=== PATIENT | male | born 1955 | race Caucasian/White ===

== ENCOUNTER 2021-06-29 21:40 | Emergency (ER) | payer OTHER, SELFPAY ==
[2021-06-30 00:32] LABS: Protime INR 1.08
[2021-06-30 00:38] LABS: Hematocrit 41.3 % (39.6-49.0); Lymphocytes % 23.8 % (15.3-44.8); MPV 7.9 fL (7.6-11.3); RBC Red Blood Cell Count 4.87 M/uL (4.33-5.43)
[2021-06-30 00:55] LABS: Potassium 3.5 mmol/L (3.5-5.1)
[2021-06-30 00:58] LABS: Albumin 3.9 g/dL (3.4-5.0); Magnesium 2.1 mg/dL (1.8-2.4)
[2021-06-30 01:00] LABS: Bilirubin Direct 0.1 mg/dL (0-0.2)
[2021-06-30 01:00] LABS: Urine Blood Negative (Negative); Urine Glucose Trace (Negative); Urine Protein Negative (Negative); Urine Specific Gravity >=1.030 (1.005-1.030); Urine pH 5.5 (5.0-7.0)
[2021-06-30 01:02] LABS: Bilirubin Total 0.5 mg/dL (0.2-1.0)
[2021-06-30 01:03] LABS: Protein, Total 7.1 g/dL (6.4-8.2)
[2021-06-30 01:06] LABS: Troponin High Sensitivity 5.6 pg/mL (<58.9)
[2021-06-30 01:27] LABS: Barbiturates NEGATIVE (NEGATIVE); Benzodiazepines NEGATIVE (NEGATIVE); Cocaine NEGATIVE (NEGATIVE); METHAMPHETAM NEGATIVE (NEGATIVE); Methadone NEGATIVE (NEGATIVE); Opiates NEGATIVE (NEGATIVE); Phencyclidine NEGATIVE (NEGATIVE); THC Cannibis NEGATIVE (NEGATIVE)
[2021-06-30] MEDS ORDERED: HYDROCODONE/APAP 5/325 MG TAB ONE (02:00)
--- NOTE | 2021-06-30 02:31 | ER ---
Nurse's Notes [facility] Name: Jose J Sanchez Age: 65 yrs Sex: Male : 1955 Arrival Date: 06/29/2021 Time: 21:43 Bed 9 Private MD: Diagnosis: Pain in left shoulder Presentation: 06/29 22:04 Chief complaint: Patient states: Left shoulder pain - on and off 3 x 4 days. Stabbing ld1 pain. Denies injury. Coronavirus screen: At this time, the client does not indicate any symptoms associated with coronavirus-19. Ebola Screen: No symptoms or risks identified at this time. Initial Sepsis Screen: Does the patient meet any 2 criteria? No. Patient's initial sepsis screen is negative. Does the patient have a suspected source of infection? No. Patient's initial sepsis screen is negative. Risk Assessment: Do you want to hurt yourself or someone else? Patient reports no desire to harm self or others. Onset of symptoms was June 29, 2021. 22:04 Method Of Arrival: Ambulatory ld1 22:04 Acuity: DELICIA 3 ld1 Triage Assessment: 22:05 General: Appears in no apparent distress. comfortable, Behavior is calm, cooperative, ld1 appropriate for age. Pain: Complains of pain in left arm Pain radiates to right arm Pain currently is 8 out of 10 on a pain scale. EENT: No signs and/or symptoms were reported regarding the EENT system. Neuro: Level of Consciousness is awake, alert, obeys commands, Oriented to person, place, time, situation, Denies numbness headache. Cardiovascular: Capillary refill < 3 seconds Patient's skin is warm and dry. Respiratory: Reports shortness of breath on exertion. GI: Abdomen is flat, non-distended. Musculoskeletal: Reports pain in left arm. Historical: - Allergies: 22:05 No Known Allergies; ld1 - Home Meds: 22:05 atorvastatin oral [Active]; trazodone 50 mg Oral tab 1 tab once daily [Active]; ld1 - PSHx: 22:05 Back surgery; ld1 - Immunization history:: Adult Immunizations up to date, Client reports having NOT received the Covid vaccine. - Social history:: Smoking status: Patient denies any tobacco usage or history of. Patient/guardian denies using alcohol. Screenin:58 Abuse screen: Denies threats or abuse. Denies injuries from another. Nutritional kd3 screening: No deficits noted. Fall Risk IV access (20 points). 22:59 Tuberculosis screening: No symptoms or risk factors identified. kd3 Assessment: 23:07 Reassessment: Patient and/or family updated on plan of care and expected duration. Pain kd3 level reassessed. Patient is alert, oriented x 3, equal unlabored respirations, skin warm/dry/pink. pt complains of left shoulder pain that started 3 days ago. is currently an 8 out of 10, radiates to the left neck and through the upper back. denies chest pain, sob or and cardiac related history. General: Appears uncomfortable. Neuro: Level of Consciousness is awake, alert, obeys commands, Oriented to person, place, time, situation. Cardiovascular: Patient's skin is warm and dry. Respiratory: Airway is patent Trachea midline Respiratory effort is even, unlabored, Respiratory pattern is regular. 06/30 01:18 Reassessment: No changes from previously documented assessment. Patient and/or family kd3 updated on plan of care and expected duration. Pain level reassessed. Patient is alert, oriented x 3, equal unlabored respirations, skin warm/dry/pink. 03:07 Reassessment: No changes from previously documented assessment. Patient and/or family kd3 updated on plan of care and expected duration. Pain level reassessed. Patient is alert, oriented x 3, equal unlabored respirations, skin warm/dry/pink. Vital Signs: 06/29 22:04 BP 156 / 91; Pulse 77; Resp 18; Temp 98.1(O); Pulse Ox 100% on R/A; Weight 93.44 kg; ld1 Height 6 ft. 3 in. (190.50 cm); Pain 8/10; 22:58 BP 128 / 87; Pulse 92; Resp 17; Temp 98.6; Pulse Ox 99% on R/A; kd3 06/30 01:18 BP 151 / 94; Pulse 60; Resp 17; Pulse Ox 99% on R/A; kd3 03:07 BP 150 / 82; Pulse 72; Resp 17; Pulse Ox 100% on R/A; kd3 06/29 22:04 Body Mass Index 25.75 (93.44 kg, 190.50 cm) ld1 ED Course: 06/29 21:43 Patient arrived in ED. kz 22:05 Triage completed. ld1 22:05 Arm band placed on right wrist. ld1 22:58 Linnea Mccallum, RN is Primary Nurse. kd3 22:58 Patient has correct armband on for positive identification. Bed in low position. Call kd3 light in reach. 23:42 Fred Sauceda MD is Attending Physician. 7 06/30 00:14 Inserted saline lock: 20 gauge in right antecubital area, using aseptic technique. ds4 Blood collected. 00:28 XRAY Chest (1 view) In Process Unspecified. EDMS 00:28 Shoulder Left (2 View) XRAY In Process Unspecified. EDMS 02:30 Jm Walters MD is Referral Physician. 7 02:30 Joel Nino MD is Referral Physician. 7 03:07 No provider procedures requiring assistance completed. IV discontinued, intact, kd3 bleeding controlled, No redness/swelling at site. Pressure dressing applied. Administered Medications: 01:57 Drug: HYDROcodone-acetaminophen 5 mg-325 mg 1 tabs Route: PO; kd3 03:08 Follow up: Response: No adverse reaction; Pain is decreased kd3 Medication: 06/29 22:59 VIS not applicable for this client. kd3 Outcome: 06/30 02:31 Discharge ordered by . 7 03:07 Discharged to home ambulatory. kd3 03:07 Condition: stable 03:07 Discharge instructions given to patient, Instructed on discharge instructions, follow up and referral plans. medication usage, Demonstrated understanding of instructions, follow-up care, medications, Prescriptions given X 1. 03:08 Patient left the ED. kd3 Signatures: Dispatcher [employer] EDOK Jason Liz ds4 Fred Sauceda MD MD 7 Karen Urias RN RN ld1 Linnea Mccallum, RN RN kd3 Lashell Murphy
--- NOTE | 2021-06-30 02:31 | EDPHYS ---
Physician Documentation [facility] Name: Jose J Sanchez Age: 65 yrs Sex: Male : 1955 Arrival Date: 06/29/2021 Time: 21:43 Bed 9 Private MD: ED Physician Fred Sauceda HPI: 06/30 00:05 This 65 yrs old Male presents to ER via Ambulatory with complaints of Shoulder Pain - mh7 Left. 00:05 The patient or guardian complains of pain, that is acute. left shoulder. Context: The mh7 problem was sustained at an unknown site, resulted from an unknown reason, The patient experiences decreased range of motion, when attempts to raise arm, The patient reports no obvious deformity. Onset: The symptoms/episode began/occurred 4 day(s) ago. Modifying factors: the symptoms are alleviated by nothing. The symptoms are aggravated by movement, rotation of arm. Associated signs and symptoms: Pertinent negatives: abdominal pain, chest pain, diaphoresis, dyspnea, neck pain, shortness of breath, tingling. Severity of symptoms: At their worst the symptoms were moderate, 2 day(s) ago, in the emergency department the symptoms have improved, moderately. Treatment prior to arrival includes: over the counter medications, Tylenol. Historical: - Allergies: 06/29 22:05 No Known Allergies; ld1 - Home Meds: 22:05 atorvastatin oral [Active]; trazodone 50 mg Oral tab 1 tab once daily [Active]; ld1 - PSHx: 22:05 Back surgery; ld1 - Immunization history:: Adult Immunizations up to date, Client reports having NOT received the Covid vaccine. - Social history:: Smoking status: Patient denies any tobacco usage or history of. Patient/guardian denies using alcohol. ROS: 06/30 00:05 Constitutional: Negative for fever, chills, and weight loss, Eyes: Negative for injury, mh7 pain, redness, and discharge, ENT: Negative for injury, pain, and discharge, Neck: Negative for injury, pain, and swelling, Cardiovascular: Negative for chest pain, palpitations, and edema, Respiratory: Negative for shortness of breath, cough, wheezing, and pleuritic chest pain, Abdomen/GI: Negative for abdominal pain, nausea, vomiting, diarrhea, and constipation, Back: Negative for injury and pain, : Negative for injury, bleeding, discharge, and swelling, Skin: Negative for injury, rash, and discoloration, Neuro: Negative for headache, weakness, numbness, tingling, and seizure, Psych: Negative for depression, anxiety, suicide ideation, homicidal ideation, and hallucinations, Allergy/Immunology: Negative for hives, rash, and allergies, Endocrine: Negative for neck swelling, polydipsia, polyuria, polyphagia, and marked weight changes. Exam: 00:05 Constitutional: This is a well developed, well nourished patient who is awake, alert, mh7 and in no acute distress. Head/Face: Normocephalic, atraumatic. Eyes: Pupils equal round and reactive to light, extra-ocular motions intact. Lids and lashes normal. Conjunctiva and sclera are non-icteric and not injected. Cornea within normal limits. Periorbital areas with no swelling, redness, or edema. Neck: Trachea midline, no thyromegaly or masses palpated, and no cervical lymphadenopathy. Supple, full range of motion without nuchal rigidity, or vertebral point tenderness. No Meningismus. Chest/axilla: Normal chest wall appearance and motion. Nontender with no deformity. No lesions are appreciated. Cardiovascular: Regular rate and rhythm with a normal S1 and S2. No gallops, murmurs, or rubs. Normal PMI, no JVD. No pulse deficits. Respiratory: Lungs have equal breath sounds bilaterally, clear to auscultation and percussion. No rales, rhonchi or wheezes noted. No increased work of breathing, no retractions or nasal flaring. Abdomen/GI: Soft, non-tender, with normal bowel sounds. No distension or tympany. No guarding or rebound. No evidence of tenderness throughout. Back: No spinal tenderness. No costovertebral tenderness. Full range of motion. Skin: Warm, dry with normal turgor. Normal color with no rashes, no lesions, and no evidence of cellulitis. Neuro: Awake and alert, GCS 15, oriented to person, place, time, and situation. Cranial nerves II-XII grossly intact. Motor strength 5/5 in all extremities. Sensory grossly intact. Cerebellar exam normal. Normal gait. Psych: Awake, alert, with orientation to person, place and time. Behavior, mood, and affect are within normal limits. 00:05 Musculoskeletal/extremity: Extremities: noted in the posterior left shoulder: pain, tenderness, ROM: limited active range of motion due to pain, in the left shoulder, limited passive range of motion due to pain, in the left shoulder, Circulation is intact in all extremities. Sensation intact. Compartment Syndrome exam of affected extremity: is normal. no numbness, no tingling, no sensation deficit, no palor, no weak pulses, Joints: the left shoulder displays painful range of motion, Weight bearing: able to fully bear weight, without difficulty, Tendon exam: specific tendon testing normal through active and passive range of motion DVT Exam: no swelling, no tenderness, negative Homans' sign noted on exam, no appreciated bluish discoloration, no erythema, no increased warmth. Vital Signs: 06/29 22:04 BP 156 / 91; Pulse 77; Resp 18; Temp 98.1(O); Pulse Ox 100% on R/A; Weight 93.44 kg; ld1 Height 6 ft. 3 in. (190.50 cm); Pain 8/10; 22:58 BP 128 / 87; Pulse 92; Resp 17; Temp 98.6; Pulse Ox 99% on R/A; kd3 06/30 01:18 BP 151 / 94; Pulse 60; Resp 17; Pulse Ox 99% on R/A; kd3 03:07 BP 150 / 82; Pulse 72; Resp 17; Pulse Ox 100% on R/A; kd3 06/29 22:04 Body Mass Index 25.75 (93.44 kg, 190.50 cm) ld1 MDM: 02:28 Differential diagnosis: Anterior dislocation without fracture, Posterior dislocation mh7 without fracture, DJD, tendonitis. Data reviewed: vital signs, nurses notes, lab test result(s), cardiac enzymes, CBC, electrolytes, EKG, radiologic studies, plain films. Data interpreted: Pulse oximetry: on room air is 99 %. Interpretation: normal. Counseling: I had a detailed discussion with the patient and/or guardian regarding: the historical points, exam findings, and any diagnostic results supporting the discharge/admit diagnosis, the presence of at least one elevated blood pressure reading (>120/80) during this emergency department visit, lab results, radiology results, the need for outpatient follow up, a orthopedic surgeon, to return to the emergency department if symptoms worsen or persist or if there are any questions or concerns that arise at home. Response to treatment: the patient's symptoms have markedly improved after treatment. 02:31 [facility] 00:00 Order name: Basic Metabolic Panel; Complete Time: :50 [facility] 06/30 00:00 Order name: CBC with Diff; Complete Time: 01:05 [facility] 06/30 00:00 Order name: LFT's; Complete Time: : [facility] 06/30 00:00 Order name: Magnesium; Complete Time: : [facility] 06/30 00:00 Order name: NT PRO-BNP; Complete Time: : [facility] 06/30 00:00 Order name: PT-INR; Complete Time: : [facility] 06/30 00:00 Order name: Troponin HS; Complete Time: : [facility] 06/30 00:00 Order name: XRAY Chest (1 view) [facility] 06/30 00:00 Order name: EKG; Complete Time: 00: [facility] 06/30 00:00 Order name: Cardiac monitoring; Complete Time: : [facility] 06/30 00:00 Order name: UDS; Complete Time: :50 [facility] 06/30 00:00 Order name: Shoulder Left (2 View) XRAY [facility] 06/30 01:00 Order name: Urine Dipstick-Ancillary; Complete Time: 01:05 [facility] 06/30 00:00 Order name: EKG - Nurse/Tech; Complete Time: 00:43 [facility] 06/30 00:00 Order name: IV Saline Lock; Complete Time: 00:14 [facility] 06/30 00:00 Order name: Labs collected and sent; Complete Time: 00:14 [facility] 06/30 00:00 Order name: O2 Per Protocol; Complete Time: 00:14 [facility] 06/30 00:00 Order name: O2 Sat Monitoring; Complete Time: 00:14 [facility] 06/30 00:00 Order name: Urine Dipstick-Ancillary (obtain specimen); Complete Time: 01: [facility] Administered Medications: 01:57 Drug: HYDROcodone-acetaminophen 5 mg-325 mg 1 tabs Route: PO; kd3 03:08 Follow up: Response: No adverse reaction; Pain is decreased kd3 Disposition Summary: 05/17/22 02:31 Discharge Ordered [facility] Problem: chronic [facility] Symptoms: have improved [facility] Condition: Stable [facility] Diagnosis - Pain in left shoulder [facility] - With: Private Physician - When: 1 - 2 days - Reason: Worsening of condition, Recheck today's complaints, Continuance of care, Re-evaluation by your physician [facility]up: [facility] - With: Jm Walters MD - When: 1 - 2 days - Reason: Worsening of condition, Recheck today's complaints [facility]up: [facility] - With: Joel Nino MD - When: 1 - 2 days - Reason: Worsening of condition, Recheck today's complaints Discharge Instructions: - Discharge Summary Sheet [facility] - Musculoskeletal Pain [facility] - Shoulder Pain, [id number] [facility] Forms: - Medication Reconciliation Form [facility] - Thank You Letter [facility] - Antibiotic Education [facility] - Prescription Opioid Use [facility] Prescriptions: - lidocaine 5 % Topical adhesive patch,medicated - apply 1 patch by TOPICAL route once daily As needed; 7 patch; Refills: 0, 7 Product Selection Permitted Signatures: Dispatcher [employer] Fred Guallpa MD MD [facility] Karen Urias, RN RN ld1 Linnea Mccallum RN RN kd3
[2021-06-30 03:18] VITALS: TEMP 98.6
[2021-06-30 03:21] VITALS: BP 150/82; O2SAT 100
--- NOTE | 2021-06-30 09:32 | EKG ---
Test Date: 2021-06-30 Test Time: 00:25:45 Electric Meter Repairer: BLAS MEASUREMENT RESULTS: Intervals: Rate: 60 AZ: 174 QRSD: 80 QT: 424 QTc: 424 Dalton: P: 32 AZ: 174 QRS: 30 T: 38 INTERPRETIVE STATEMENTS: Normal sinus rhythm Nonspecific T wave abnormality Abnormal ECG No previous ECG available for comparison Electronically Signed On 06-30-21 09:31:57 CDT by Fabian Linares
--- NOTE | 2021-06-30 12:52 | RAD REPORT ---
EXAM DESCRIPTION: RAD - Chest Single View - 06/30/2021 12:26 am CLINICAL HISTORY: 65-year-old male with pain. TECHNIQUE: Single view, AP portable chest was obtained. Two views of the LEFT shoulder were obtained in AP internal/external rotation. COMPARISON: None. FINDINGS: Chest: Unremarkable cardiac and mediastinal silhouette. Heart size is normal. Lung volumes grossly clear without focal opacity, pneumothorax or pleural effusions. The visualized bones are within normal limits. LEFT shoulder: No fracture or dislocation. The joint spaces are within normal limits. IMPRESSION: No acute radiographic abnormalities. Electronically signed by: Janett Bernal MD 06/30/2021 12:35 AM CDT Due to temporary technical issues with the PACS/Fluency reporting system, reports are being signed by the in house radiologists without review as a courtesy to insure prompt reporting. The interpreting radiologist is fully responsible for the content of the report.
--- NOTE | 2021-06-30 13:23 | RAD REPORT ---
EXAM DESCRIPTION: RAD - Shoulder Left 2 View - 06/30/2021 12:26 am CLINICAL HISTORY: 65-year-old male with pain. TECHNIQUE: Single view, AP portable chest was obtained. Two views of the LEFT shoulder were obtained in AP internal/external rotation. COMPARISON: None. FINDINGS: Chest: Unremarkable cardiac and mediastinal silhouette. Heart size is normal. Lung volumes grossly clear without focal opacity, pneumothorax or pleural effusions. The visualized bones are within normal limits. LEFT shoulder: No fracture or dislocation. The joint spaces are within normal limits. IMPRESSION: No acute radiographic abnormalities. Electronically signed by: Janett Bernal MD 06/30/2021 12:35 AM CDT Due to temporary technical issues with the PACS/Fluency reporting system, reports are being signed by the in house radiologists without review as a courtesy to insure prompt reporting. The interpreting radiologist is fully responsible for the content of the report.
== END 2021-06-30 03:08 | disposition home or self-care (01) ==
LOC: ER 21:40
DX: M25.512 Pain in left shoulder (principal)
CPT/HCPCS: 36415; 71045; 80048; 80076; 80307; 81003; 83735; 83880; 84484; 85025; 85610; 93005; 99284

== ENCOUNTER 2021-07-04 16:47 | Emergency (ER) | payer OTHER ==
--- OUTSIDE RECORDS SUMMARY | 2021-07-04 16:49 | XMS REPORT | Continuity of Care Document ---
:1955 Author Organization [facility] t Address [address] [place] [address] Care Team Providers Name Role Phone Lusins, O Attending Clinician Unavailable Physician, Primary or Family Attending Clinician Unavailabl e Lusins, O Admitting Clinician Unavailable Physician, Primary or Family Admitting Clinician Unavailabl e Payers Payer Name Policy Type Policy Number Effective Date Expiration Date S vita [facility] [id number] 2021 (MEDICARE 00:00:00 REPLACEMENT HMO) Problems This patient has no known problems. Allergies, Adverse Reactions, Alerts Allergy Allergy Status Severity Reaction(s) Onset Inactive Treating Comm ents Source Name Type Date Date Clinician No Known DA Active U [facility] Allergie 06-24 [facility] 00:00: [address] No Known DA Active U [facility] Allergie 06-24 [facility] 00:00: [address] Medications This patient has no known medications. Procedures This patient has no known procedures. Encounters Start End Encounter Admission Attending Care Care Encounter Source Date/Time Date/Time Type Type Clinicians Facility Department ID 2020-06-24 Inpatient UR Lusins, MYNOR TRUJILLO [id number] [facility] 00:19:00 Sebastien [id number] [facility] 2020-06-23 Inpatient UR Physician, MYNOR TRUJILLO [id number] [facility] 22:23:00 Lulu [id number] [facility] 2021-03-03 2021-03-03 Outpatient DMG [id number] [facility] 08:00:00 08:00:00 [id number] [facility] Results Test Description Test Time Test Comments Results Result Comments Source GLYCOSYLATED HEMOGLOBIN (HA1C) 2020-06-24 09:24:00 Test Item Value Reference Range Interpretation Comme nts GLYCOSYLATED HEMOGLOBIN (HA1C) (test code = GLYHGB) 5.5 % TOT HB 4. 5-6.2 N LIPID PROFILE (CORONARY RISK)2020-06-24 08:32:00 Test Item Value Reference Range Interpretation Comments TRIGLYCERIDES (test 112 MG/DL 30-200 N code = TRIG) CHOLESTEROL (test code 160 MG/DL 122-200 N = CHOL) CHOLESTEROL/HDL RATIO 3.6 1.5-4.5 N 1. I nitial (test code = CHOLHDL) classi fication based on total choles terol: <200 mg/dl Desirable chol esterol 200-239 m g/dl Borderline hi gh risk cholesterol >240 mg/dl H igh risk cholestero l2. Initial classif ication based on LDL cholesterol: <130 mg/dl Desirable LDL cholesterol 130-159 mg/dl Borderline high risk LDL >159 mg/dl High risk LDL cholesterol3. HDL < 35 mg/dl repres ent increased CHD r isk; HDL > 60 mg/dl represent decre ased CHD risk.4. C hol/HDL > 5.0 represent increased CHD risk in men; Chol/H DL > 4.5 represent increased CHD risk in women. HDL CHOLESTEROL (test 44 MG/DL 40-60 N code = HDL) LIPOPROTEIN LDL (test 94 MG/DL 62-130 N code = LDL) LIPOPROTEIN VLDL (test 22 MG/DL 3-60 N code = VLDL)
--- NOTE | 2021-07-04 18:19 | ER ---
Nurse's Notes [facility] Name: Jose J Sanchez Age: 65 yrs Sex: Male : 1955 Arrival Date: 07/04/2021 Time: 16:50 Bed Waiting Private MD: Diagnosis: Other sprain of left shoulder joint Presentation: 07/04 17:03 Chief complaint: Patient states: left shoulder hurting real bad, across back and across iw shoulder blades, sometimes it goes to my hip , has been hurting for a week, denies injury. Coronavirus screen: At this time, the client does not indicate any symptoms associated with coronavirus-19. Ebola Screen: Patient negative for fever greater than or equal to 101.5 degrees Fahrenheit, and additional compatible Ebola Virus Disease symptoms Patient denies exposure to infectious person. Patient denies travel to an Ebola-affected area in the 21 days before illness onset. No symptoms or risks identified at this time. Initial Sepsis Screen: Does the patient meet any 2 criteria? No. Patient's initial sepsis screen is negative. Does the patient have a suspected source of infection? No. Patient's initial sepsis screen is negative. Risk Assessment: Do you want to hurt yourself or someone else? Patient reports no desire to harm self or others. Onset of symptoms was June 27, 2021. 17:03 Method Of Arrival: Ambulatory iw 17:03 Acuity: DELICIA 4 iw Historical: - Allergies: 17:05 No Known Allergies; iw - Home Meds: 17:05 atorvastatin Oral [Active]; trazodone 50 mg Oral tab 1 tab once daily [Active]; iw - PMHx: 17:05 Hypercholesterolemia; iw - PSHx: 17:05 back surgery; five knee surgery; iw - Social history:: Patient/guardian denies using alcohol, street drugs, The patient lives with family. - Family history:: not pertinent. Screenin:29 Abuse screen: Denies threats or abuse. Denies injuries from another. Nutritional ss screening: No deficits noted. Tuberculosis screening: Never had TB. Fall Risk None identified. Assessment: 18:29 General: Appears in no apparent distress. comfortable, Behavior is calm, cooperative. ss Pain: Complains of pain in L shoulder Pain currently is 9 out of 10 on a pain scale. Neuro: Sheldon Agitation-Sedation Scale (RASS): 0 - Alert and Calm Level of Consciousness is awake, alert, obeys commands, Oriented to person, place, time, situation. Cardiovascular: Pulses are palpable in right radial artery and left radial artery. Respiratory: Airway is patent Respiratory effort is even, unlabored, Respiratory pattern is regular, symmetrical. EENT: Nares are clear Oral mucosa is moist. Derm: Skin is intact, is healthy with good turgor, Skin is dry, Skin is pink, warm \T\ dry. normal. Musculoskeletal: Circulation, motion, and sensation intact. Range of motion: intact in all extremities, Swelling absent. Vital Signs: 17:03 BP 164 / 91; Pulse 82; Resp 16; Temp 98.4; Pulse Ox 100% on R/A; Weight 93.44 kg; iw Height 6 ft. 3 in. (190.50 cm); Pain 9/10; 17:03 Body Mass Index 25.75 (93.44 kg, 190.50 cm) iw ED Course: 16:50 Patient arrived in ED. ds1 17:05 Triage completed. iw 17:06 Arm band placed on. iw 17:57 Erica Zarate MD is Attending Physician. ma2 18:28 Analisa Meza RN is Primary Nurse. ss 18:29 Patient has correct armband on for positive identification. Bed in low position. ss 18:29 No provider procedures requiring assistance completed. Patient did not have IV access ss during this emergency room visit. Administered Medications: No medications were administered Medication: 18:29 VIS not applicable for this client. ss Outcome: 18:19 Discharge ordered by . ma2 18:29 Discharged to home ambulatory. ss 18:29 Condition: good 18:29 Discharge instructions given to patient, Instructed on discharge instructions, follow up and referral plans. medication usage, Demonstrated understanding of instructions, follow-up care, medications, Prescriptions given X 4. 18:30 Patient left the ED. ss Signatures: Ellie Georges ds1 Lola Rao RN RN Analisa Meza RN RN Erica Zarate MD MD ma2
--- NOTE | 2021-07-04 18:19 | EDPHYS ---
Physician Documentation [facility] Name: Jose J Sanchez Age: 65 yrs Sex: Male : 1955 Arrival Date: 07/04/2021 Time: 16:50 Bed Waiting Private MD: ED Physician Erica Zarate HPI: 07/04 18:10 This 65 yrs old Male presents to ER via Ambulatory with complaints of Shoulder Pain. ma2 18:10 Associated signs and symptoms: Pertinent negatives: chest pain, diaphoresis, dyspnea, ma2 neck pain, shortness of breath, tingling. 65-year-old male with left shoulder pain that is been constant for the last 2 weeks worse when he moves the shoulder, pain is reproduced reproducible only when he abducts and left his left shoulder, left shoulder is also tender as well, denies chest pain neck pain or any anginal equivalent, patient was seen in our ER last week had normal x-ray was advised to follow-up with PCP was given pain medication on. However patient did not had a chance to follow-up with PCP or get MRI yet. No new symptoms at this time.. Historical: - Allergies: 17:05 No Known Allergies; iw - Home Meds: 17:05 atorvastatin Oral [Active]; trazodone 50 mg Oral tab 1 tab once daily [Active]; iw - PMHx: 17:05 Hypercholesterolemia; iw - PSHx: 17:05 back surgery; five knee surgery; iw - Social history:: Patient/guardian denies using alcohol, street drugs, The patient lives with family. - Family history:: not pertinent. ROS: 18:10 Constitutional: Negative for fever, chills, and weight loss. ma2 18:10 All other systems are negative. Exam: 18:10 Constitutional: This is a well developed, well nourished patient who is awake, alert, ma2 and in no acute distress. Head/Face: Normocephalic, atraumatic. Eyes: Pupils equal round and reactive to light, extra-ocular motions intact. Lids and lashes normal. Conjunctiva and sclera are non-icteric and not injected. Cornea within normal limits. Periorbital areas with no swelling, redness, or edema. ENT: Nares patent. No nasal discharge, no septal abnormalities noted. Tympanic membranes are normal and external auditory canals are clear. Oropharynx with no redness, swelling, or masses, exudates, or evidence of obstruction, uvula midline. Mucous membranes moist. Neck: Trachea midline, no thyromegaly or masses palpated, and no cervical lymphadenopathy. Supple, full range of motion without nuchal rigidity, or vertebral point tenderness. No Meningismus. Chest/axilla: Normal chest wall appearance and motion. Nontender with no deformity. No lesions are appreciated. Cardiovascular: Regular rate and rhythm with a normal S1 and S2. No gallops, murmurs, or rubs. Normal PMI, no JVD. No pulse deficits. Respiratory: Lungs have equal breath sounds bilaterally, clear to auscultation and percussion. No rales, rhonchi or wheezes noted. No increased work of breathing, no retractions or nasal flaring. Abdomen/GI: Soft, non-tender, with normal bowel sounds. No distension or tympany. No guarding or rebound. No evidence of tenderness throughout. Back: No spinal tenderness. No costovertebral tenderness. Full range of motion. Skin: Warm, dry with normal turgor. Normal color with no rashes, no lesions, and no evidence of cellulitis. MS/ Extremity: Left shoulder tenderness over posterior joint pain reproducible on exam limited range of motion due to pain, pulses equal, no cyanosis. Neurovascular intact. Full, normal range of motion. Neuro: Awake and alert, GCS 15, oriented to person, place, time, and situation. Cranial nerves II-XII grossly intact. Motor strength 5/5 in all extremities. Sensory grossly intact. Cerebellar exam normal. Normal gait. Vital Signs: 17:03 BP 164 / 91; Pulse 82; Resp 16; Temp 98.4; Pulse Ox 100% on R/A; Weight 93.44 kg; iw Height 6 ft. 3 in. (190.50 cm); Pain 9/10; 17:03 Body Mass Index 25.75 (93.44 kg, 190.50 cm) iw MDM: 18:17 Differential diagnosis: DJD, tendonitis. Data reviewed: vital signs, nurses notes. ma2 Counseling: I had a detailed discussion with the patient and/or guardian regarding: the historical points, exam findings, and any diagnostic results supporting the discharge/admit diagnosis, the presence of at least one elevated blood pressure reading (>120/80) during this emergency department visit, the need for outpatient follow up. Response to treatment: the patient's symptoms have markedly improved after treatment. 18:19 Patient medically screened. ma2 Administered Medications: No medications were administered Disposition Summary: 07/04/21 18:19 Discharge Ordered Location: Home ma2 Condition: Stable ma2 Diagnosis - Other sprain of left shoulder joint ma2 Followup: ma2 - With: Private Physician - When: Tomorrow - Reason: If symptoms return, Continuance of care Discharge Instructions: - Discharge Summary Sheet ma2 - Shoulder Pain ma2 Forms: - Medication Reconciliation Form ma2 - Thank You Letter ma2 - Antibiotic Education ma2 - Prescription Opioid Use ma2 Prescriptions: - TORADOL 10 MG - take 1 tablet by ORAL route 3 times per day; 21 tablet; Refills: 0, Product ma2 Selection Permitted - Diclofenac Sodium 75 mg Oral Tablet Sustained Release - take 1 tablet by ORAL route 2 times per day; 30 tablet; Refills: 0, Product ma2 Selection Permitted - Medrol (Ilan) 4 mg Oral Tablets, Dose Pack - take 1 tablet by ORAL route as directed - follow package instructions; 1 ma2 packet; Refills: 0, Product Selection Permitted - Cyclobenzaprine 5 mg Oral Tablet - take 1 tablet by ORAL route 3 times per day As needed; 15 tablet; Refills: 0, ma2 Product Selection Permitted Signatures: Dispatcher [employer] Lola Sharp, Erica Templeton RN, MD MD ma2
[2021-07-04 18:42] VITALS: BP 164/91; TEMP 98.4; O2SAT 100
== END 2021-07-04 18:30 | disposition home or self-care (01) ==
LOC: ER 16:47
DX: S43.492A Other sprain of left shoulder joint, initial encounter (principal); E78.00 Pure hypercholesterolemia, unspecified
CPT/HCPCS: 99282

== ENCOUNTER 2021-07-10 21:43 | Emergency (ER) | payer OTHER ==
--- OUTSIDE RECORDS SUMMARY | 2021-07-10 21:46 | XMS REPORT | Continuity of Care Document ---
:1955 Author Organization [facility] t Address [address] [place] [address] Care Team Providers Name Role Phone Lusins, O Attending Clinician Unavailable Physician, Primary or Family Attending Clinician Unavailabl e Lusins, O Admitting Clinician Unavailable Physician, Primary or Family Admitting Clinician Unavailabl e Payers Payer Name Policy Type Policy Number Effective Date Expiration Date S vita [facility] [id number] 2021 (MEDICARE 00:00:00 REPLACEMENT HMO) Problems This patient has no known problems. Allergies, Adverse Reactions, Alerts Allergy Allergy Status Severity Reaction(s) Onset Inactive Treating Comm ents Source Name Type Date Date Clinician No Known DA Active U [facility] Allergie 06-24 [facility] 00:00: [address] No Known DA Active U [facility] Allergie 06-24 [facility] 00:00: [address] Medications This patient has no known medications. Procedures This patient has no known procedures. Encounters Start End Encounter Admission Attending Care Care Encounter Source Date/Time Date/Time Type Type Clinicians Facility Department ID 2020-06-24 Inpatient UR Lusins, MYNOR TRUJILLO [id number] [facility] 00:19:00 Sebastien [id number] [facility] 2020-06-23 Inpatient UR Physician, MYNOR TRUJILLO [id number] [facility] 22:23:00 Lulu [id number] [facility] 2021-03-03 2021-03-03 Outpatient [facility] [id number] [facility] 08:00:00 08:00:00 [id number] [facility] Results Test Description Test [...]
--- NOTE | 2021-07-11 02:04 | ER ---
Nurse's Notes [facility] Name: Jose J Sanchez Age: 65 yrs Sex: Male : 1955 Arrival Date: 07/10/2021 Time: 21:46 Bed 14 Private MD: Diagnosis: Presentation: 07/10 22:07 Chief complaint: Patient states: pt was here previously for hurt shoulder on the left kd3 side. pt states that the pain has not gotten any better since he was last here. he states that it is not radiating down in his ribs on the left side, making it painful to breathe. it also radiates to the right chest. Coronavirus screen: Vaccine status: Patient reports being unvaccinated. Ebola Screen: No symptoms or risks identified at this time. Initial Sepsis Screen: Does the patient meet any 2 criteria? No. Patient's initial sepsis screen is negative. Does the patient have a suspected source of infection? No. Patient's initial sepsis screen is negative. Risk Assessment: Do you want to hurt yourself or someone else? Patient reports no desire to harm self or others. Onset of symptoms was July 10, 2021. 22:07 Method Of Arrival: Ambulatory kd3 22:07 Acuity: DELICIA 3 kd3 Triage Assessment: 22:12 General: Appears uncomfortable, Behavior is calm, cooperative. Pain: Complains of pain kd3 in left shoulder, left rib cage, left chest. Neuro: Level of Consciousness is awake, alert, obeys commands, Oriented to person, place, time, situation. Respiratory: Reports shortness of breath at rest Onset: The symptoms/episode began/occurred at an unknown time. the patient has mild shortness of breath. Respiratory: Airway is patent Trachea midline Respiratory effort is even, unlabored. Historical: - Home Meds: 22:12 atorvastatin Oral [Active]; trazodone 50 mg Oral tab 1 tab once daily [Active]; kd3 - PMHx: 22:12 Hypercholesterolemia; kd3 - PSHx: 22:12 back surgery; five knee surgery; kd3 - Immunization history:: Adult Immunizations up to date. - Social history:: Smoking status: Patient denies any tobacco usage or history of. Assessment: 22:14 Cardiovascular:. Respiratory: Airway is patent Trachea midline Respiratory effort is kd3 even, unlabored, Breath sounds are clear bilaterally. 07/11 02:04 Reassessment: Patient left without being seen by provider. ke1 Vital Signs: 07/10 22:07 BP 136 / 96; Pulse 81; Resp 18; Temp 98.3; Pulse Ox 96% ; Weight 93.44 kg; Height 6 ft. kd3 3 in. (190.50 cm); Pain 9/10; 22:07 Body Mass Index 25.75 (93.44 kg, 190.50 cm) kd3 ED Course: 21:46 Patient arrived in ED. bp1 22:12 Triage completed. kd3 22:12 Arm band placed on right wrist. kd3 22:56 Fred Sauceda MD is Attending Physician. [facility] 07/11 00:41 Brit Sheehan, RN is Primary Nurse. zara Administered Medications: No medications were administered Outcome: 02:03 Eloped from patient exam room. ke1 02:05 Patient left the ED. ke1 Signatures: Brit Sheehan, RN RN bb Tracie Moore [facility] Fred Sauceda MD MD [facility] Linnea Mccallum RN RN 3 Aubree Curry RN RN ke1
--- NOTE | 2021-07-11 02:04 | EDPHYS ---
Physician Documentation [facility] Name: Jose J Sanchez Age: 65 yrs Sex: Male : 1955 Arrival Date: 07/10/2021 Time: 21:46 Bed 14 Private MD: ED Physician Fred Sauceda HPI: 07/11 00:15 This 65 yrs old Male presents to ER via Ambulatory with complaints of Shortness Of mh7 Breath, Flank Pain, Shoulder Pain. 00:15 The patient or guardian complains of pain, that is acute. left shoulder. Context: The mh7 problem was sustained at an unknown site, resulted from an unknown reason, The patient experiences decreased range of motion, when rotates arm, The patient reports no obvious deformity. Onset: The symptoms/episode began/occurred 2 week(s) ago. Modifying factors: the symptoms are alleviated by remaining still, The symptoms are aggravated by lifting weight, movement, rotation of arm. Associated signs and symptoms: Pertinent negatives: abdominal pain, diaphoresis, neck pain, tingling. Severity of symptoms: At their worst the symptoms were moderate, 7 day(s) ago, in the emergency department the symptoms have improved, moderately. Treatment prior to arrival includes: no previous treatment. The patient has been recently seen at the [facility], last week. States his left shoulder pain has not improved much since it began 2 weeks ago. Pain with movement goes to chest area at times, and upper back. Denies any fever, cough, nausea, vomiting, abdominal pain.. Historical: - Home Meds: 07/10 22:12 atorvastatin Oral [Active]; trazodone 50 mg Oral tab 1 tab once daily [Active]; kd3 - PMHx: 22:12 Hypercholesterolemia; kd3 - PSHx: 22:12 back surgery; five knee surgery; kd3 - Immunization history:: Adult Immunizations up to date. - Social history:: Smoking status: Patient denies any tobacco usage or history of. ROS: 07/11 00:15 Constitutional: Negative for fever, chills, and weight loss, Eyes: Negative for injury, mh7 pain, redness, and discharge, ENT: Negative for injury, pain, and discharge, Neck: Negative for injury, pain, and swelling, Abdomen/GI: Negative for abdominal pain, nausea, vomiting, diarrhea, and constipation, : Negative for injury, bleeding, discharge, and swelling, Skin: Negative for injury, rash, and discoloration, Neuro: Negative for headache, weakness, numbness, tingling, and seizure, Psych: Negative for depression, anxiety, suicide ideation, homicidal ideation, and hallucinations, Allergy/Immunology: Negative for hives, rash, and allergies, Endocrine: Negative for neck swelling, polydipsia, polyuria, polyphagia, and marked weight changes, Hematologic/Lymphatic: Negative for swollen nodes, abnormal bleeding, and unusual bruising. Exam: 00:15 Constitutional: This is a well developed, well nourished patient who is awake, alert, mh7 and in no acute distress. Head/Face: Normocephalic, atraumatic. Eyes: Pupils equal round and reactive to light, extra-ocular motions intact. Lids and lashes normal. Conjunctiva and sclera are non-icteric and not injected. Cornea within normal limits. Periorbital areas with no swelling, redness, or edema. Neck: Trachea midline, no thyromegaly or masses palpated, and no cervical lymphadenopathy. Supple, full range of motion without nuchal rigidity, or vertebral point tenderness. No Meningismus. 00:15 Cardiovascular: Regular rate and rhythm with a normal S1 and S2. No gallops, murmurs, or rubs. Normal PMI, no JVD. No pulse deficits. Respiratory: Lungs have equal breath sounds bilaterally, clear to auscultation and percussion. No rales, rhonchi or wheezes noted. No increased work of breathing, no retractions or nasal flaring. Abdomen/GI: Soft, non-tender, with normal bowel sounds. No distension or tympany. No guarding or rebound. No evidence of tenderness throughout. 00:15 Skin: Warm, dry with normal turgor. Normal color with no rashes, no lesions, and no evidence of cellulitis. 00:15 Neuro: Awake and alert, GCS 15, oriented to person, place, time, and situation. Cranial nerves II-XII grossly intact. Motor strength 5/5 in all extremities. Sensory grossly intact. Cerebellar exam normal. Normal gait. Psych: Awake, alert, with orientation to person, place and time. Behavior, mood, and affect are within normal limits. 00:15 Chest/axilla: Inspection: normal, Palpation: tenderness, that is moderate, of the left lateral posterior chest, that totally reproduces the patient's complaints, Axilla: are normal, Lymph nodes: lymphadenopathy is not appreciated. 00:15 Back: pain, that is moderate, of the left trapezius, normal spinal alignment noted, CVA tenderness, is absent, vertebral tenderness, is not appreciated, muscle spasm, is appreciated in the left trapezius. 00:15 Musculoskeletal/extremity: Extremities: noted in the left shoulder: pain, tenderness, ROM: limited active range of motion due to pain, in the left shoulder, limited passive range of motion due to pain, in the left shoulder, Circulation is intact in all extremities. Sensation intact. Compartment Syndrome exam of affected extremity: is normal. no numbness, no tingling, no sensation deficit, no palor, no weak pulses, Joints: the left shoulder displays painful range of motion, tenderness, Weight bearing: able to fully bear weight, without difficulty, Tendon exam: specific tendon testing normal through active and passive range of motion Vital Signs: 07/10 22:07 BP 136 / 96; Pulse 81; Resp 18; Temp 98.3; Pulse Ox 96% ; Weight 93.44 kg; Height 6 ft. kd3 3 in. (190.50 cm); Pain 9/10; 22:07 Body Mass Index 25.75 (93.44 kg, 190.50 cm) kd3 MDM: 07/11 01:21 Order name: EKG; Complete Time: 01:22 [facility] 07/11 01:21 Order name: Cardiac monitoring [facility] 07/11 01:21 Order name: EKG - Nurse/Tech [facility] 07/11 01:21 Order name: IV Saline Lock [facility] 07/11 01:21 Order name: Labs collected and sent [facility] 07/11 01:21 Order name: O2 Per Protocol [facility] 07/11 01:21 Order name: O2 Sat Monitoring [facility] Administered Medications: No medications were administered Disposition Summary: 07/11/21 02:04 Eloped Disposition: before being seen by provider ke1 Reason: (see nurse's notes) ke1 Signatures: Dispatcher [employer] Fred Guallpa MD MD [facility] Linnea Mccallum RN RN kd3 Aubree Curry RN RN ke1 Corrections: (The following items were deleted from the chart) 07/11 02:04 01:22 Chest Single View+RAD.[email or web address] ordered. EDMS EDMS
[2021-07-11 02:09] VITALS: BP 136/96; TEMP 98.3; O2SAT 96
== END 2021-07-11 02:05 | disposition left against medical advice (07) ==
LOC: ER 21:43
DX: Z53.21 Procedure and treatment not carried out due to patient leaving prior to being seen by health care provider (principal)
CPT/HCPCS: 99281

== ENCOUNTER 2021-08-07 23:30 | Emergency (ER) | payer OTHER ==
--- OUTSIDE RECORDS SUMMARY | 2021-08-07 23:33 | XMS REPORT | Continuity of Care Document ---
:1955 Author Organization [facility] t Address [address] [place] [address] Care Team Providers Name Role Phone PCP, DOES NOT HAVE A Primary Care Physician Unavailable Gurmeet Wong Attending Clinician Unavailable Physician, Primary or Family Attending Clinician UnavailMarla Bey Attending Clinician Unavailable Jose Alberto THOMPSON, S Attending Clinician Marla Collado APN Attending Clinician Gurmeet Wong Admitting Clinician Unavailable Physician, Primary or Family Admitting Clinician UnavailMarla Bey Admitting Clinician Unavailable Payers Payer Name Policy Type Policy Number Effective Date Expiration Date Leticia gorman [facility] [id number] 2021 00:00:00 [employer] [id number] 2021 (MEDICARE 00:00:00 REPLACEMENT HMO) Problems Condition Condition Condition Status Onset Resolution Last Treating Co mments Source Name Details Category Date Date Treatment Clinician Date No known No known Disease Unive rs active active ity of problems problems [facility] Allergies, Adverse Reactions, Alerts Allergy Allergy Status Severity Reaction(s) Onset Inactive Treating Comm ents Source Name Type Date Date Clinician No Known DA Active U [facility] 06-24 [facility] s 00:00: Shanon 00 [facility] No Known DA Active U [facility] Allergie 06-24 Corpus s 00:00: Shanon [facility] NO KNOWN Drug Active Univers ALLERGIE Class ity of S [facility] Social History Social Habit Start Date Stop Date Quantity Comments Source Exposure to 2021-07-09 2021-07-19 Not sure [facility] SARS-CoV-2 (event) 00:00:00 22:03:00 Medica l Branch Sex Ass[birth year] [facility] 00:00:00 00:00:00 Medical Branch Smoking Status Start Date Stop Date Source Unknown if ever smoked [facility] Medications Ordered Filled Start Stop Current Ordering Indication Dosage Frequency Signature Comments Components Source Medication Medication Date Date Medication? Clinician (SIG) Name Name ketorolac 15mg 15 mg, Unive rs (TORADOL) 07-20 Slow IV ity of injection 02:15: 01:25 Push, [place] 15 mg 00 :00 ONCE, 1 Medical dose, On Branch 07/19/21 at 2115, DANNA NaCl 0.9% 1000mL at 999 Uni vers (NS) bolus 07-20 mL/hr, ity of infusion 02:15: 03:04 1,000 mL, Diony as 1,000 mL 00 :00 IV Medical Infusion, Branch ONCE, 1 dose, On 07/19/21 at 2115, STAT traMADoL 50 Yes [id number] 50mg Take 1 Univ ers mg tablet 07-19 tablet by ity o f 00:00: mouth [place] 00 every 6 Medical (six) Branch hours as needed for Pain (scale 4-6). Indication s: acute pain Vital Signs Vital Name Observation Time Observation Value Comments Source Systolic blood 2021-07-20 03:06:00 150 mm[Hg] Univer sity of pressure [facility] Diastolic blood 2021-07-20 03:06:00 93 mm[Hg] [facility] Heart rate 2021-07-20 03:06:00 69 /min [facility] Respiratory rate 2021-07-20 03:06:00 18 /min [facility] Oxygen saturation in 2021-07-20 03:06:00 99 /min [facility] Arterial blood by [facility] Pulse oximetry Branch Body temperature 2021-07-20 00:43:00 37.28 Lashay [facility] Body height 2021-07-20 00:43:00 190.5 cm [facility] Body weight 2021-07-20 00:43:00 93.441 kg [facility] BMI 2021-07-20 00:43:00 25.75 kg/m2 [facility] Procedures Procedure Date / Time Performed Performing Clinician Ruthie gonzalez CT ABDOMEN PELVIS WO 2021-07-20 01:35:00 Kerwin Collado [facility] COMP. METABOLIC PANEL 2021-07-20 01:18:00 Kerwin Collado [facility] ([id number]) [facility] CBC WITH DIFF 2021-07-20 01:18:00 Kerwin Collado [facility] URINALYSIS 2021-07-20 01:18:00 Kerwin Collado [facility] NOTICE OF PRIVACY 2021-07-20 00:32:07 Doctor Unassigned, No [facility] PRACTICES Name [facility] Encounters Start End Encounter Admission Attending Care Care Encounter Source Date/Time Date/Time Type Type Clinicians Facility Department ID 2020-06-24 Inpatient [facility] [id number] [facility] 00:19:00 Sebastien [id number] [facility] 2020-06-23 Inpatient UR Physician, [facility] [id number] [facility] 22:23:00 No [id number] [facility] 2021-07-19 2021-07-19 Emergency X DIAMOND DEMATTHEW ERT [id number] Univers 19:48:00 22:08:00 KERWIN solano [facility] 2021-07-19 2021-07-19 Emergency Edd Abrams S [facility] [id number] Univers 19:48:00 22:08:00 Kerwin Collado [place] [id number] [facility] [id number] [facility] [id number] [facility] 084 Branch 2021-03-03 2021-03-03 Outpatient DMG DMG [id number] [facility] 08:00:00 08:00:00 [id number] Medica l Group Results Test Description Test Time Test Comments Results Result Comments Source COMP. METABOLIC PANEL (26854) 2021-07-20 01:42:54 Test Item Value Reference Range Interpretation Comme nts NA (test code = 0583651239) 138 mmol/L 135-145 K (test code = 0384406999) 4.1 mmol/L 3.5-5.0 CL (test code = 2910941409) 104 mmol/L 98-108 CO2 TOTAL (test code = 4309799548) 22 mmol/L 23-31 L AGAP (test code = 8879783446) 2-16 BUN (test code = 4061895717) 16 mg/dL 7-23 GLUCOSE (test code = 0422942975) 115 mg/dL 70-110 H CREATININE (test code = 0.84 mg/dL 0.60-1.25 1278920417) TOTAL BILI (test code = 0.6 mg/dL 0.1-1.8 9788728969) CALCIUM (test code = 6996558124) 8.9 mg/dL 8.6-10.6 T PROTEIN (test code = 2057018343) 6.8 g/dL 6.3-8.2 ALBUMIN (test code = 1192586507) 4.4 g/dL 3.5-5.0 ALK PHOS (test code = 3190374193) 74 U/L 34-122 ALTv (test code = 1742-6) 32 U/L 5-50 AST(SGOT) (test code = 6695962971) 32 U/L 13-40 eGFR (test code = 8454301547) mL/min/1.73m2 ANGEL (test code = ANGEL) Association of Glomerular Filtration Rate (GFR) and Staging of Kidney Disease* + +-------- + ------+| GFR (mL/min/1.73 m2) ?| With Kidney Damage ?| ?Without Kidney Damage+ +-- + +| ?>90 ?| ?Stage one ?| ? Normal ?+ +------- + -------+| ?60-89 ?| ?Stage two ?| ? Decreased GFR ? + +-------- + ------+| ?30-59 ?| ?Stage three ?| ? Stage three ? + +-------- + ------+| ?15-29 ?| ?Stage four ? | ? Stage four ?+ +------- + -------+| ?<15 (or dialysis) ? ?| ?Stage five ? | ? Stage five ?+ +------- + -------+ *Each stage assumes the associated GFR level has been in effect for at least three months. ?Stages 1 to 5, with or without kidney disease, indicate chronic kidney disease. Notes: Determination of stages one and two (with eGFR >59mL/min/1.73 m2) requires estimation of kidney damage for at least three months as defined by structural or functional abnormalities of the kidney, manifested by either:Pathological abnormalities or Markers of kidney damage (including abnormalities in the composition of the blood or urine or abnormalities in imaging tests). Lab Interpretation (test code = Abnormal 88224-7) [facility] WITH [id number] 01:33:12 Test Item Value Reference Range Interpretation Comments WBC (test code = See_Comment [Automated 7510-2) message] The sy stem which generated this result transmitted reference range : 4.20 - 10.70 10*3/?L. The reference range was not used to interpret this result as normal/abnormal . RBC (test code = See_Comment [Automated 249-8) message] The sy stem which generated this result transmitted reference range : 4.26 - 5.52 10*6/?L. The reference range was not used to interpret this result as normal/abnormal . HGB (test code = 13.7 g/dL 12.2-16.4 718-7) HCT (test code = 38.3 % 38.4-49.3 L 4544-3) MCV (test code = 84.2 fL 81.7-95.6 787-2) MCH (test code = 30.1 pg 26.1-32.7 785-6) MCHC (test code = 35.8 g/dL 31.2-35.0 H 786-4) RDW-SD (test code = 35.6 fL 38.5-51.6 L 19756-7) RDW-CV (test code = 11.7 % 12.1-15.4 L 788-0) PLT (test code = See_Comment [Automated 777-3) message] The sy stem which generated this result transmitted reference range : 150 - 328 10*3/ ?L. The reference r leandro was not used to interpret this result as normal/abnormal . MPV (test code = 9.2 fL 9.8-13.0 L 95651-5) NRBC/100 WBC (test See_Comment [Automat ed code = 3361595253) message] The system which generated this result transmitted reference range : 0.0 - 10.0 /100 WBCs. The refer ence range was not u sed to interpret th is result as normal/abnormal . NRBC x10^3 (test code <0.01 See_Comment [Auto mated = 3690804955) message] The s ystem which generated this result transmitted reference range : 10*3/?L. The reference range was not used to interpret this result as normal/abnormal . GRAN MAT (NEUT) % 65.8 % (test code = 770-8) IMM GRAN % (test code 0.30 % = 1227154585) LYMPH % (test code = 22.4 % 736-9) MONO % (test code = 7.1 % 5905-5) EOS % (test code = 4.0 % 713-8) BASO % (test code = 0.4 % 706-2) GRAN MAT x10^3(ANC) 5.91 10*3/uL 1.99-6.95 (test code = 7980190734) IMM GRAN x10^3 (test 0.03 10*3/uL 0.00-0.06 code = 8693271894) LYMPH x10^3 (test code 2.02 10*3/uL 1.09-3.23 = 731-0) MONO x10^3 (test code 0.64 10*3/uL 0.36-1.02 = 742-7) EOS x10^3 (test code = 0.36 10*3/uL 0.06-0.53 711-2) BASO x10^3 (test code 0.04 10*3/uL 0.01-0.09 = 704-7) Lab Interpretation Abnormal (test code = 84570-2) [facility]2020-06-24 09:24:00 Test Item Value Reference Range Interpretation Comments GLYCOSYLATED HEMOGLOBIN (HA1C) 5.5 % TOT HB 4.5-6.2 N (test code = GLYHGB) LIPID PROFILE (CORONARY RISK)2020-06-24 08:32:00 Test Item [...] (test 22 MG/DL 3-60 N code = VLDL)"
[2021-08-08] MEDS ORDERED: HYDROCODONE/APAP 5/325 MG TAB ONE (02:30)
--- NOTE | 2021-08-08 02:33 | ER ---
Nurse's Notes [facility] Name: Jose J Sanchez Age: 65 yrs Sex: Male : 1955 Arrival Date: 08/07/2021 Time: 23:32 Bed 10 Private MD: Diagnosis: Contusion, Left Shoulder Presentation: 08/08 00:11 Chief complaint: Patient states: Left shoulder pain after falling on concrete today at lp1 1530, limited ROM to left shoulder; Denies any other injuries. Coronavirus screen: At this time, the client does not indicate any symptoms associated with coronavirus-19. Ebola Screen: No symptoms or risks identified at this time. Initial Sepsis Screen: Does the patient meet any 2 criteria? No. Patient's initial sepsis screen is negative. Does the patient have a suspected source of infection? No. Patient's initial sepsis screen is negative. Risk Assessment: Do you want to hurt yourself or someone else? Patient reports no desire to harm self or others. Onset of symptoms was August 08, 2021. 00:11 Method Of Arrival: Ambulatory lp1 00:11 Acuity: DELICIA 4 lp1 Triage Assessment: 00:30 Injury Description: fell from standing position onto concrete. bb Historical: - Allergies: 00:12 No Known Allergies; lp1 - Home Meds: 00:12 atorvastatin Oral [Active]; trazodone 50 mg Oral tab 1 tab once daily [Active]; lp1 - PMHx: 00:12 Hypercholesterolemia; lp1 - PSHx: 00:12 back surgery; five knee surgery; facial surgery; lp1 - Immunization history:: Adult Immunizations up to date, Client reports having NOT received the Covid vaccine. - Social history:: Smoking status: Patient denies any tobacco usage or history of. Screenin:29 Abuse screen: Denies threats or abuse. Nutritional screening: No deficits noted. bb Tuberculosis screening: No symptoms or risk factors identified. Fall Risk None identified. Assessment: 00:29 General: Appears in no apparent distress. uncomfortable, Behavior is calm, cooperative. bb Pain: Complains of pain in left shoulder. Neuro: Level of Consciousness is awake, alert, obeys commands, Oriented to person, place, time, situation. Cardiovascular: Capillary refill < 3 seconds Patient's skin is warm and dry. Respiratory: Respiratory effort is even, unlabored, Respiratory pattern is regular. GI: No signs and/or symptoms were reported involving the gastrointestinal system. Derm: Skin is pink, warm \T\ dry. Musculoskeletal: Circulation, motion, and sensation intact. Reports pain in left shoulder. 02:06 Reassessment: pt resting quietly, eyes closed, resp unlabored awaiting Dr Sauceda bb evaluation. 02:49 Reassessment: Patient is alert, oriented x 3, equal unlabored respirations, skin bb warm/dry/pink. sling to left arm in place pt verbalized understanding of and agrees to plan of care discharge instructions given pt ambulated with steady gait to exit. Vital Signs: 00:11 BP 137 / 85; Pulse 83; Resp 18; Temp 97.6(TE); Pulse Ox 100% on R/A; Weight 93.44 kg lp1 (R); Height 6 ft. 3 in. (190.50 cm); Pain 10/10; 02:35 BP 140 / 80; Pulse 86; Resp 16 S; Pulse Ox 99% on R/A; bb 00:11 Body Mass Index 25.75 (93.44 kg, 190.50 cm) lp1 ED Course: 08/07 23:32 Patient arrived in ED. bp1 08/08 00:11 Arm band placed on right wrist. lp1 00:12 Triage completed. lp1 00:19 Fred Sauceda MD is Attending Physician. 7 00:22 Brit Sheehan, ROLA is Primary Nurse. bb 00:29 Patient has correct armband on for positive identification. Bed in low position. Call bb light in reach. Side rails up X 1. Warm blanket given. Pillow given. 00:33 Shoulder Left (2 View) XRAY In Process Unspecified. EDMS 02:32 Gonzalez Chapin MD is Referral Physician. 7 02:50 No provider procedures requiring assistance completed. Patient did not have IV access bb during this emergency room visit. Administered Medications: 02:33 Drug: HYDROcodone-acetaminophen 5 mg-325 mg 1 tabs Route: PO; jb4 02:50 Follow up: Response: No adverse reaction bb Medication: 00:13 VIS not applicable for this client. lp1 Outcome: 02:32 Discharge ordered by . 7 02:51 Discharged to home ambulatory, with family. bb 02:51 Condition: stable 02:51 Discharge instructions given to patient, Instructed on discharge instructions, follow up and referral plans. no driving heavy equipment, medication usage, Demonstrated understanding of instructions, follow-up care, medications, Prescriptions given X 1. 02:51 Patient left the ED. zara Signatures: Dispatcher [employer] EDMS Brit Sheehan RN RN bb Meredith Rome RN RN lp1 Slim Bhakta RN RN jb4 Tracie Moore Maurice, MD MD mh7 Corrections: (The following items were deleted from the chart) 00:13 00:11 Chief complaint: Patient states: Left shoulder pain after falling on concrete lp1 today at 1530, limited ROM to left shoulder lp1
--- NOTE | 2021-08-08 02:33 | EDPHYS ---
Physician Documentation [facility] Name: Jose J Sanchez Age: 65 yrs Sex: Male : 1955 Arrival Date: 08/07/2021 Time: 23:32 Bed 10 Private MD: ED Physician Fred Sauceda HPI: 08/08 02:27 This 65 yrs old Male presents to ER via Ambulatory with complaints of Shoulder Injury. mh7 02:27 The patient or guardian complains of an injury. left shoulder. Context: The problem was mh7 sustained on a street or driveway, resulted from a fall, while walking, The patient experiences decreased range of motion, when rotates arm, The patient reports no obvious deformity. Onset: The symptoms/episode began/occurred yesterday, at 15:00. Modifying factors: the symptoms are alleviated by nothing. The symptoms are aggravated by movement, rotation of arm. Associated signs and symptoms: Pertinent negatives: abdominal pain, chest pain, diaphoresis, dyspnea, neck pain, shortness of breath, tingling. Severity of symptoms: At their worst the symptoms were moderate, just prior to arrival, earlier today, in the emergency department the symptoms are unchanged. Treatment prior to arrival includes: no previous treatment. Historical: - Allergies: 00:12 No Known Allergies; lp1 - Home Meds: 00:12 atorvastatin Oral [Active]; trazodone 50 mg Oral tab 1 tab once daily [Active]; lp1 - PMHx: 00:12 Hypercholesterolemia; lp1 - PSHx: 00:12 back surgery; five knee surgery; facial surgery; lp1 - Immunization history:: Adult Immunizations up to date, Client reports having NOT received the Covid vaccine. - Social history:: Smoking status: Patient denies any tobacco usage or history of. ROS: 02:27 Constitutional: Negative for fever, chills, and weight loss, Eyes: Negative for injury, mh7 pain, redness, and discharge, ENT: Negative for injury, pain, and discharge, Neck: Negative for injury, pain, and swelling, Cardiovascular: Negative for chest pain, palpitations, and edema, Respiratory: Negative for shortness of breath, cough, wheezing, and pleuritic chest pain, Abdomen/GI: Negative for abdominal pain, nausea, vomiting, diarrhea, and constipation, Back: Negative for injury and pain, : Negative for injury, bleeding, discharge, and swelling, Skin: Negative for injury, rash, and discoloration, Neuro: Negative for headache, weakness, numbness, tingling, and seizure, Psych: Negative for depression, anxiety, suicide ideation, homicidal ideation, and hallucinations, Allergy/Immunology: Negative for hives, rash, and allergies, Endocrine: Negative for neck swelling, polydipsia, polyuria, polyphagia, and marked weight changes, Hematologic/Lymphatic: Negative for swollen nodes, abnormal bleeding, and unusual bruising. Exam: 02:27 Head/Face: Normocephalic, atraumatic. Eyes: Pupils equal round and reactive to light, mh7 extra-ocular motions intact. Lids and lashes normal. Conjunctiva and sclera are non-icteric and not injected. Cornea within normal limits. Periorbital areas with no swelling, redness, or edema. Neck: Trachea midline, no thyromegaly or masses palpated, and no cervical lymphadenopathy. Supple, full range of motion without nuchal rigidity, or vertebral point tenderness. No Meningismus. Chest/axilla: Normal chest wall appearance and motion. Nontender with no deformity. No lesions are appreciated. Cardiovascular: Regular rate and rhythm with a normal S1 and S2. No gallops, murmurs, or rubs. Normal PMI, no JVD. No pulse deficits. Respiratory: Lungs have equal breath sounds bilaterally, clear to auscultation and percussion. No rales, rhonchi or wheezes noted. No increased work of breathing, no retractions or nasal flaring. Abdomen/GI: Soft, non-tender, with normal bowel sounds. No distension or tympany. No guarding or rebound. No evidence of tenderness throughout. Back: No spinal tenderness. No costovertebral tenderness. Full range of motion. Skin: Warm, dry with normal turgor. Normal color with no rashes, no lesions, and no evidence of cellulitis. 02:27 Neuro: Awake and alert, GCS 15, oriented to person, place, time, and situation. Cranial nerves II-XII grossly intact. Motor strength 5/5 in all extremities. Sensory grossly intact. Cerebellar exam normal. Normal gait. Psych: Awake, alert, with orientation to person, place and time. Behavior, mood, and affect are within normal limits. 02:27 Constitutional: The patient appears in no acute distress, alert, awake, uncomfortable. 02:27 Musculoskeletal/extremity: Extremities: noted in the left shoulder: contusion, decreased ROM, pain, tenderness, ROM: limited active range of motion due to pain, in the left shoulder, limited passive range of motion due to pain, in the left shoulder, Circulation is intact in all extremities. Sensation intact. Compartment Syndrome exam of affected extremity: is normal. no numbness, no tingling, no sensation deficit, no palor, no weak pulses, Joints: the left shoulder displays limited range of motion, painful range of motion, tenderness, Weight bearing: able to fully bear weight, without difficulty, Tendon exam: specific tendon testing normal through active and passive range of motion Vital Signs: 00:11 BP 137 / 85; Pulse 83; Resp 18; Temp 97.6(TE); Pulse Ox 100% on R/A; Weight 93.44 kg lp1 (R); Height 6 ft. 3 in. (190.50 cm); Pain 10/10; 02:35 BP 140 / 80; Pulse 86; Resp 16 S; Pulse Ox 99% on R/A; bb 00:11 Body Mass Index 25.75 (93.44 kg, 190.50 cm) lp1 MDM: 02:31 Differential diagnosis: Anterior dislocation with fracture, Anterior dislocation mh7 without fracture, Posterior dislocation with fracture, Posterior dislocation without fracture, humeral head fracture, glenoid fracture, DJD, tendonitis. Data reviewed: vital signs, nurses notes, radiologic studies, plain films. Data interpreted: Pulse oximetry: on room air is 100 %. Interpretation: normal. Counseling: I had a detailed discussion with the patient and/or guardian regarding: the historical points, exam findings, and any diagnostic results supporting the discharge/admit diagnosis, radiology results, the need for outpatient follow up, a orthopedic surgeon, to return to the emergency department if symptoms worsen or persist or if there are any questions or concerns that arise at home. 02:32 Patient medically screened. 7 08/08 00:11 Order name: Shoulder Left (2 View) XRAY lp1 08/08 02:19 Order name: Sling; Complete Time: 02:33 7 Administered Medications: 02:33 Drug: HYDROcodone-acetaminophen 5 mg-325 mg 1 tabs Route: PO; jb4 02:50 Follow up: Response: No adverse reaction bb Disposition Summary: 08/08/21 02:32 Discharge Ordered Location: Home [facility] Problem: new [facility] Symptoms: have improved [facility] Condition: Stable [facility] Diagnosis - Contusion, Left Shoulder [facility] Followup: [facility] - With: Private Physician - When: 1 - 2 days - Reason: Worsening of condition, Recheck today's complaints, Continuance of care, Re-evaluation by your physician Followup: [facility] - With: Gonzalez Chapin MD - When: 2 - 3 days - Reason: Worsening of condition, Recheck today's complaints Discharge Instructions: - Discharge Summary Sheet [facility] - Shoulder Pain, [id number] [facility] - Contusion, Zqau-hv-Rome [facility] - How to Use a Sling, [id number] [facility] Forms: - Medication Reconciliation Form [facility] - Thank You Letter [facility] - Antibiotic Education [facility] - Prescription Opioid Use [facility] Prescriptions: - Tylenol-Codeine #3 300 mg-30 mg Oral - take 2 tablet by ORAL route every 6-8 hours As needed; 15 tablet; Refills: 0, 7 Product Selection Permitted Signatures: Dispatcher [employer] EDMeredith Coughlin RN RN lp1 Slim Bhakta RN RN jb4 Fred Sauceda MD MD 7 Brit Sheehan RN bb
[2021-08-08 03:13] VITALS: TEMP 97.6
[2021-08-08 03:15] VITALS: BP 140/80; O2SAT 99
--- NOTE | 2021-08-10 14:19 | RAD REPORT ---
EXAM DESCRIPTION: RAD - Shoulder Left 2 View - 08/08/2021 12:31 am CLINICAL HISTORY: 65 years, Male, PAIN COMPARISON: 06/30/2021 FINDINGS: 2 X-ray views of the left shoulder (internal rotation and external rotation views) were pe rformed. There is no evidence for fracture or dislocation. There are minimal spur formation/degenerative wong e is identified within the greater tuberosity. No significant gross articular or soft tissue abnormal ity is identified. There are no gross intraosseous lesions. The AC joint demonstrate minimal degene rative changes. There is no evidence for separation. IMPRESSION: Minimal degenerative changes. Electronically signed by: Sebastien Sánchez MD 08/08/2021 12:54 AM CDT Due to temporary technical issues with the PACS/Fluency reporting system, reports are being signed by the in house radiologist without review as a courtesy to ensure prompt reporting. The interpreting r adiologist is fully responsible for the content of the report.
== END 2021-08-08 02:51 | disposition home or self-care (01) ==
LOC: ER 23:30
DX: S40.012A Contusion of left shoulder, initial encounter (principal); E78.00 Pure hypercholesterolemia, unspecified
CPT/HCPCS: 99283

== ENCOUNTER 2021-10-21 15:54 | Emergency (ER) | payer OTHER ==
--- OUTSIDE RECORDS SUMMARY | 2021-10-21 16:02 | XMS REPORT | Continuity of Care Document ---
:1955 Author Organization [facility] t Address [address] [place] [address] Care Team Providers Name Role Phone PCP, PATIENT DOES NOT HAVE A Primary Care Physician UnavailSebastien Finn Attending Clinician Unavailable KERWIN FIELDS Attending Clinician Unavailable Edd Abrams MD Attending Clinician Kerwin Fields APN Attending Clinician Sebastien Wong Admitting Clinician Unavailable KERWIN FIELDS Admitting Clinician Unavailable Payers Payer Name Policy Type Policy Number Effective Date Expiration Date Leticia [facility] [id number] 2021 00:00:00 [employer] [id number] 2021 (MEDICARE 00:00:00 REPLACEMENT HMO) Problems Condition Condition Condition Status Onset Resolution Last Treating Co mments Source Name Details Category Date Date Treatment Clinician Date No known No known Disease Unive rs active active ity of problems problems [facility] Allergies, Adverse Reactions, Alerts Allergy Allergy Status Severity Reaction(s) Onset Inactive Treating Comm ents Source Name Type Date Date Clinician No Known DA Active [facility] 06[facility]24 [facility] 00:00: [facility] No Known DA Active U [facility] Allergie 06-24 Corp[facility] s 00:00: [facility] NO KNOWN Drug Active Univers ALLERGIE Class ity of S [facility] Social History Social Habit Start Date Stop Date Quantity Comments Source Exposure to 2021-07-09 2021-07-19 Not sure [facility] SARS-CoV-2 (event) 00:00:00 22:03:00 Medica l Branch Sex Ass[birth year] [facility] 00:00:00 00:00:00 Medical Branch Smoking Status Start Date Stop Date Source Unknown if ever smoked [facility] Medications Ordered Filled Start Stop Current Ordering [...] tablet by ity o f 00:00: mouth [place] 00 every 6 Medical (six) Branch hours as needed for Pain (scale 4-6). Indication s: acute pain Vital Signs Vital Name Observation Time Observation Value Comments Source Systolic blood 2021-07-20 03:06:00 150 mm[Hg] Univer sity of pressure [facility] Diastolic blood 2021-07-20 03:06:00 93 mm[Hg] [facility] Heart rate 2021-07-20 03:06:00 69 /min [facility] Respiratory rate 2021-07-20 03:06:00 18 /min [facility] Oxygen saturation in 2021-07-20 03:06:00 99 /min [facility] Arterial blood by [facility] Pulse oximetry Branch Body temperature 2021-07-20 00:43:00 37.28 Lashay [facility] Body height 2021-07-20 00:43:00 190.5 cm [facility] Body weight 2021-07-20 00:43:00 93.441 kg [facility] BMI 2021-07-20 00:43:00 25.75 kg/m2 [facility] Procedures Procedure Date / Time Performed Performing Clinician Ruthie gonzalez CT ABDOMEN PELVIS WO 2021-07-20 01:35:00 Kerwin Fields [facility] COMP. METABOLIC PANEL 2021-07-20 01:18:00 Kerwin Fields [facility] ([id number]) [facility] CBC WITH DIFF 2021-07-20 01:18:00 Kerwin Fields [facility] URINALYSIS 2021-07-20 01:18:00 Kerwin Fields [facility] NOTICE OF PRIVACY 2021-07-20 00:32:07 Doctor Unassigned, No [facility] PRACTICES Name [facility] Encounters Start End Encounter Admission Attending Care Care Encounter Source Date/Time Date/Time Type Type Clinicians Facility Department ID 2020-06-24 In[facility] [id number] [facility] 01:23:38 Sebastien Guerrero [facility] 2021-07-19 2021-07-19 Emergency X DIAMOND MAMATTHEW ERT [id number] Univers 19:48:00 22:08:00 KERWIN solano [facility] 2021-07-19 2021-07-19 Emergency Edd Abrams S [facility] [id number] Univers 19:48:00 22:08:00 Kerwin Fields RICHARDS [id number] [facility] [id number] [facility] [id number] [facility] 084 Branch 2021-03-03 2021-03-03 Outpatient DMG DMG [id number] [facility] 08:00:00 08:00:00 [id number] [facility] Results Test Description Test Time Test Comments Results Result Comments Source COMP. METABOLIC PANEL (57332) 2021-07-20 01:42:54 Test Item Value Reference Range Interpretation Comme nts NA (test code = 7725195173) 138 mmol/L 135-145 K (test code = 5291516940) 4.1 mmol/L 3.5-5.0 CL (test code = 3589810874) 104 mmol/L 98-108 CO2 TOTAL (test code = 5358637392) 22 mmol/L 23-31 L AGAP (test code = 6345819859) 2-16 BUN (test code = 7660192411) 16 mg/dL 7-23 GLUCOSE (test code = 8037852453) 115 mg/dL 70-110 H CREATININE (test code = 0.84 mg/dL 0.60-1.25 7914052062) TOTAL BILI (test code = 0.6 mg/dL 0.1-1.6 7268288630) CALCIUM (test code = 0449921497) 8.9 mg/dL 8.6-10.6 T PROTEIN (test code = 9421427113) 6.8 g/dL 6.3-8.2 ALBUMIN (test code = 2693366258) 4.4 g/dL 3.5-5.0 ALK PHOS (test code = 3053946499) 74 U/L 34-122 ALTv (test code = 1742-6) 32 U/L 5-50 AST(SGOT) (test code = 0975836264) 32 U/L 13-40 eGFR (test code = 5440693297) mL/min/1.73m2 ANGEL (test code = ANGEL) Association [...] tests). Lab Interpretation (test code = Abnormal 24976-0) [facility] WITH [id number] 01:33:12 Test Item Value Reference Range Interpretation Comments WBC (test code = See_Comment [Automated 9290-2) message] The sy stem which generated this result transmitted reference range : 4.20 - 10.70 10*3/?L. The reference range was not used to interpret this result as normal/abnormal . RBC (test code = See_Comment [Automated 669-8) message] The sy stem which generated this [...] (test code = 35.6 fL 38.5-51.6 L 08936-0) RDW-CV (test code = 11.7 % 12.1-15.4 L 788-0) PLT (test code = See_Comment [Automated 777-3) message] The sy stem which generated this result transmitted reference range : 150 - 328 10*3/ ?L. The reference r leandro was not used to interpret this result as normal/abnormal . MPV (test code = 9.2 fL 9.8-13.0 L 03496-8) NRBC/100 WBC (test See_Comment [Automat ed code = 0802920661) message] The system which generated this result transmitted reference range : 0.0 - 10.0 /100 WBCs. The refer ence range was not u sed to interpret th is result as normal/abnormal . NRBC x10^3 (test code <0.01 See_Comment [Auto mated = 5285669821) message] The s ystem which generated this result transmitted reference range : 10*3/?L. The reference range was not used to interpret this result as normal/abnormal . GRAN MAT (NEUT) % 65.8 % (test code = 770-8) IMM GRAN % (test code 0.30 % = 3361017695) LYMPH % (test code = 22.4 % 736-9) MONO % (test code = 7.1 % 5905-5) EOS % (test code = 4.0 % 713-8) BASO % (test code = 0.4 % 706-2) GRAN MAT x10^3(ANC) 5.91 10*3/uL 1.99-6.95 (test code = 6158234833) IMM GRAN x10^3 (test 0.03 10*3/uL 0.00-0.06 code = 2676925805) LYMPH x10^3 (test code 2.02 10*3/uL 1.09-3.23 = 731-0) MONO x10^3 (test code 0.64 10*3/uL 0.36-1.02 = 742-7) EOS x10^3 (test code = 0.36 10*3/uL 0.06-0.53 711-2) BASO x10^3 (test code 0.04 10*3/uL 0.01-0.09 = 704-7) Lab Interpretation Abnormal (test code = 20402-5) [facility]2020-06-24 09:24:00 Test Item Value Reference Range Interpretation Comments GLYCOSYLATED HEMOGLOBIN (HA1C) 5.5 % TOT HB 4.5-6.2 N (test code = GLYHGB) LIPID PROFILE (CORONARY RISK)2020-06-24 08:32:00 Test Item Value Reference Range Interpretation Comments TRIGLYCERIDES (test 112 MG/DL 30-200 N code = TRIG) CHOLESTEROL (test code 160 MG/DL 122-200 N = CHOL) CHOLESTEROL/HDL RATIO 3.6 1.5-4.5 N 1. Ini tial (test code = CHOLHDL) classi fication based on total choles terol: <200 mg/dl Neetu rable cholesterol 200 -239 mg/dl Borderlin e high risk cholestero l >240 mg/dl High risk cholesterol2. I nitial classification based on LDL choleste rol: <130 mg/dl Neetu rable LDL cholesterol 130-159 mg/dl Borderline high risk LDL >159 mg/dl High risk LDL choles terol3. HDL < 35 mg/dl represent incre ased CHD risk; HDL > 60 mg/dl represent decreased CHD r isk.4. Chol/HDL > 5.0 represent incre ased CHD risk in men ; Chol/HDL > 4.5 represent incre ased CHD risk in wom en. HDL CHOLESTEROL (test 44 MG/DL 40-60 N code = HDL) LIPOPROTEIN LDL (test 94 MG/DL 62-130 N code = LDL) LIPOPROTEIN VLDL (test 22 MG/DL 3-60 N code = VLDL)"
--- NOTE | 2021-10-21 17:53 | RAD REPORT ---
EXAM DESCRIPTION: CT - CTHCSPWOC - 10/21/2021 5:23 pm CLINICAL HISTORY: Trauma, head and neck injury. fall COMPARISON: No comparisons TECHNIQUE: Axial 5 mm thick images of the head were obtained. Axial 2 mm thick images of the cervical spine were obtained with sagittal and coronal reconstruction images generated and reviewed. All CT scans are performed using dose optimization technique as appropriate and may include automated exposure control or mA/KV adjustment according to patient size. FINDINGS: CT HEAD WITHOUT CONTRAST: No acute hemorrhage, hydrocephalus or extra-axial collection is identified.No areas of brain edema or midline shift. The paranasal sinuses and mastoids are clear.The calvarium is intact. CT CERVICAL SPINE WITHOUT CONTRAST: No fracture or subluxation.Mild cervical degenerative changes.No prevertebral soft tissues swelling i s identified. IMPRESSION: No acute intracranial or cervical spine findings.
--- NOTE | 2021-10-21 17:55 | RAD REPORT ---
EXAM DESCRIPTION: CT - CTFB CLINICAL HISTORY: fall Fall, trauma, left-sided facial injury. COMPARISON: No comparisons TECHNIQUE: Axial 2 mm thick images of the face were obtained with sagittal and coronal reconstructio n images. All CT scans are performed using dose optimization technique as appropriate and may include automated exposure control or mA/KV adjustment according to patient size. FINDINGS: Slight irregularity of the left nasal bone. Adjacent soft tissue swelling.Soft tissue swel ling is seen left periorbital region.The mandible is intact. The globes and orbital contents are grossly unremarkable.The paranasal sinuses and mastoids are clear . IMPRESSION: Minimal left-sided nasal bone fracture suspected.Mild left periorbital soft tissue swell ing.
--- NOTE | 2021-10-21 19:36 | ER ---
Nurse's Notes [facility] Name: Jose J Sanchez Age: 65 yrs Sex: Male : 1955 Arrival Date: 10/21/2021 Time: 16:03 Bed DIS1 Private MD: Diagnosis: Fracture of nasal bones;Unspecified injury of head, initial encounter Presentation: 10/21 16:13 Chief complaint: Patient states: Pt reports he was working when he tripped and struck kb3 his left face on a chair. Coronavirus screen: Vaccine status: Patient reports being unvaccinated. Client denies travel out of the [place] in the last 14 days. Ebola Screen: Patient negative for fever greater than or equal to 101.5 degrees Fahrenheit, and additional compatible Ebola Virus Disease symptoms Patient denies exposure to infectious person. Patient denies travel to an Ebola-affected area in the 21 days before illness onset. Initial Sepsis Screen: Does the patient meet any 2 criteria? No. Patient's initial sepsis screen is negative. Does the patient have a suspected source of infection? No. Patient's initial sepsis screen is negative. Risk Assessment: Do you want to hurt yourself or someone else? Patient reports no desire to harm self or others. Onset of symptoms was October 21, 2021 at 15:00. 16:13 Method Of Arrival: EMS: [facility] 16:13 Acuity: DELICIA 3 kb3 Triage Assessment: 16:17 General: Appears in no apparent distress. Behavior is calm, cooperative. Pain: kb3 Complains of pain in left eye Pain does not radiate. Historical: - Allergies: 16:17 No Known Allergies; kb3 - Home Meds: 16:17 atorvastatin Oral [Active]; trazodone 50 mg Oral tab 1 tab once daily [Active]; kb3 Benadryl 25 mg Oral cap 1 cap once daily for insomnia [Active]; - PMHx: 16:17 Hypercholesterolemia; kb3 - Immunization history:: Adult Immunizations unknown, Client reports having NOT received the Covid vaccine. Last tetanus immunization: unknown. - Social history:: Smoking status: Patient denies any tobacco usage or history of. Vital Signs: 16:13 BP 151 / 98; Pulse 69; Resp 18; Temp 98.2; Pulse Ox 100% ; Weight 94.35 kg; Height 6 kb3 ft. 3 in. (190.50 cm); Pain 10/10; 16:13 Body Mass Index 26.00 (94.35 kg, 190.50 cm) kb3 ED Course: 16:03 Patient arrived in ED. am2 16:17 Triage completed. kb3 16:17 Arm band placed on right wrist. kb3 16:20 Juvencio Martinez PA is PHCP. jmm 16:20 Johnie Fernandez DO is Attending Physician. jmm 17:25 Facial Bones W/ Mpr In Process Unspecified. EDMS 17:25 Head C Spine Mpr Wo Con In Process Unspecified. EDMS 19:34 Aminah Hardy MD is Referral Physician. [place] Administered Medications: No medications were administered Outcome: 19:35 Discharge ordered by . m 20:10 Patient left the ED. vc1 Signatures: Dispatcher [employer] EDNH Juvencio Martinez PA PA [place] Abby Silverio am2 Bridgette Vital RN RN vc1 Lashell Thacker, ROLA RN kb3 Corrections: (The following items were deleted from the chart) 21:45 21:45 Patient left the ED. vc1 vc1
--- NOTE | 2021-10-21 19:36 | EDPHYS ---
Physician Documentation [facility] Name: Jose J Sanchez Age: 65 yrs Sex: Male : 1955 Arrival Date: 10/21/2021 Time: 16:03 Bed DIS1 Private MD: ED Physician Johnie Fernandez HPI: 10/21 19:31 This 65 yrs old Male presents to ER via EMS with complaints of Fall Injury, Head jmm Injury-Adult. 19:31 Details of fall: The patient fell from an upright position, while walking. Onset: The jmm symptoms/episode began/occurred acutely. This is a 65-year-old male with history of hyperlipidemia that presents emerged department with complaints of frontal headache following a fall which occurred just prior to arrival. Patient states he tripped falling face forward. Denies loss conscious, vomiting.. Historical: - Allergies: 16:17 No Known Allergies; kb3 - Home Meds: 16:17 atorvastatin Oral [Active]; trazodone 50 mg Oral tab 1 tab once daily [Active]; kb3 Benadryl 25 mg Oral cap 1 cap once daily for insomnia [Active]; - PMHx: 16:17 Hypercholesterolemia; kb3 - Immunization history:: Adult Immunizations unknown, Client reports having NOT received the Covid vaccine. Last tetanus immunization: unknown. - Social history:: Smoking status: Patient denies any tobacco usage or history of. ROS: 19:31 Constitutional: Negative for fever, chills, and weight loss, Cardiovascular: Negative jmm for chest pain, palpitations, and edema, Respiratory: Negative for shortness of breath, cough, wheezing, and pleuritic chest pain. 19:31 Neuro: Positive for headache. 19:31 All other systems are negative. Exam: 19:31 Constitutional: This is a well developed, well nourished patient who is awake, alert, jmm and in no acute distress. 19:31 Neck: Trachea midline, Supple Chest/axilla: Normal chest wall appearance and motion. Cardiovascular: Regular rate and rhythm. No edema appreciated Respiratory: Normal respirations, no respiratory distress appreciated Abdomen/GI: Non distended Back: Normal ROM Skin: General appearance color normal 19:31 Head/face: Superficial abrasion noted to the left cheek, nasal swelling appreciated. 19:31 ENT: Nasal septal hematoma is not appreciated. 19:31 Musculoskeletal/extremity: ROM: intact in all extremities. 19:31 Skin: Appearance: Color: normal in color. 19:31 Neuro: Orientation: is normal, Mentation: is normal, Memory: is normal. 19:31 Psych: Behavior/mood is pleasant, cooperative. Vital Signs: 16:13 BP 151 / 98; Pulse 69; Resp 18; Temp 98.2; Pulse Ox 100% ; Weight 94.35 kg; Height 6 kb3 ft. 3 in. (190.50 cm); Pain 10/10; 16:13 Body Mass Index 26.00 (94.35 kg, 190.50 cm) kb3 MDM: 16:19 Patient medically screened. [facility] 19:33 Data reviewed: vital signs, nurses notes. Counseling: I had a detailed discussion with conchis the patient and/or guardian regarding: the historical points, exam findings, and any diagnostic results supporting the discharge/admit diagnosis, radiology results, the need for outpatient follow up, to return to the emergency department if symptoms worsen or persist or if there are any questions or concerns that arise at home. ED course: No intracranial hemorrhage or skull fractures appreciated. Nasal fracture noted on CT of the face. Due to superficial lacerations, will treat as an open fracture. Advised follow with ENT and otherwise given strict return precautions. Patient understood agrees plan of care.. 10/21 16:58 Order name: Facial Bones W/ Mpr; Complete Time: 17:56 EDNV 10/21 17:01 Order name: Head C Spine Mpr Wo Con; Complete Time: 17:55 EDNV 10/21 17:56 Order name: Wound Care; Complete Time: 20:07 [facility] Administered Medications: No medications were administered Disposition: 23:13 Co-signature as Attending Physician, Johnie Fernandez DO I agree with the assessment and ms3 plan of care. Disposition Summary: 10/21/21 19:35 Discharge Ordered Location: Home [facility] Condition: Stable abilio Diagnosis - Fracture of nasal bones abilio - Unspecified injury of head, initial encounter abilio Followup: conchis - With: Aminah Hardy MD - When: 2 - 3 days - Reason: Recheck today's complaints, Continuance of care, Re-evaluation by your physician Discharge Instructions: - Discharge Summary Sheet [facility] - Head Injury, Adult abilio - Nasal Fracture abiliom - Nonsutured Laceration Care jmm Forms: - Medication Reconciliation Form jmm - Thank You Letter jmm - Antibiotic Education jmm - Prescription Opioid Use jmm Prescriptions: - Augmentin 875-125 mg Oral Tablet - take 1 tablet by ORAL route every 12 hours for 10 days; 20 tablet; Refills: 0, jmm Product Selection Permitted Signatures: Dispatcher [employer] EDMS Juvencio Martinez PA PA jmm Johnie Fernandez DO DO ms3 Lashell Thacker, RN RN kb3 Corrections: (The following items were deleted from the chart) 16:59 16:58 C Spine Wo Con ordered. EDMS EDMS 17:00 16:58 Head Brain Wo Cont ordered. EDMS EDMS
[2021-10-22 01:30] VITALS: BP 151/98; TEMP 98.2; O2SAT 100
== END 2021-10-21 21:45 | disposition home or self-care (01) ==
LOC: ER 15:54
DX: S02.2XXA Fracture of nasal bones, initial encounter for closed fracture (principal); S09.90XA Unspecified injury of head, initial encounter; E78.00 Pure hypercholesterolemia, unspecified
CPT/HCPCS: 70450; 70486; 72125; 76377; 99283

== ENCOUNTER 2022-02-12 11:40 | Emergency (ER) | payer OTHER ==
--- OUTSIDE RECORDS SUMMARY | 2022-02-12 11:45 | XMS REPORT | Continuity of Care Document ---
:1955 Author Organization [facility] t Address [address] [place] [address] Care Team Providers Name Role Phone Bonny Baker Primary Care Physician [phone] Maurizio Wong Attending Clinician Unavailable ANNA SIU Attending Clinician Unavailable Anna Siu MD Attending Clinician Doctor Unassigned, [place] Attending Clinician Unavailable TUNDE ALVARADO Attending Clinician Unavailable Tunde Brown Attending Clinician Edd Abrams MD Attending Clinician Kerwin Collado APN Attending Clinician KERWIN COLLADO Attending Clinician Unavailable Maurizio Wong Admitting Clinician Unavailable TUNDE ALVARADO Admitting Clinician Unavailable KERWIN COLLADO Admitting Clinician Unavailable Payers Payer Name Policy Type Policy Number Effective Date Expiration Date Leticia gorman [employer] [place] [id number] 2021 00:00:00 [employer] [id number] 2021 (MEDICARE 00:00:00 REPLACEMENT HMO) Problems Condition Condition Condition Status Onset Resolution Last Treating Co mments Source Name Details Category Date Date Treatment Clinician Date No known No known Disease Unive rs active active ity of problems problems [facility] Allergies, Adverse Reactions, Alerts Allergy Allergy Status Severity Reaction(s) Onset Inactive Treating Comm ents Source Name Type Date Date Clinician No Known DA Active [facility] Allergie 5-11 Corp[place] s 00:00: Shanon 00 [facility] No Known DA Active [facility] Allergie 5-11 Corpus s 00:00: Shanon 00 [facility] NO KNOWN Drug Active Univers ALLERGIE Class ity of S [facility] Social History Social Habit Start Date Stop Date Quantity Comments Source Exposure to 2022-01-08 2022-01-18 Not sure [facility] SARS-CoV-2 00:00:00 13:19:00 [facility] (event) [place] Tobacco use and 2022-01-18 2022-01-18 Smokeless tobacco Un iversity of exposure 00:00:00 00:00:00 non-user [facility] Alcohol intake 2022-01-18 2022-01-18 Lifetime University of 00:00:00 00:00:[address] [facility] (finding) [place] Sex Ass[birth year] At [birth year] Universit y of 00:00:00 00:00:00 [facility] Smoking Status Start Date Stop Date Source Tobacco [facility] Never [facility] tobacco [facility] Medications Ordered Filled Start Stop Current Ordering Indication Dosage Frequency Signature Comments Components Source Medication Medication Date Date Medication? Clinician (SIG) Name Name diclofenac 2021-02 Yes 75mg Take 1 Unive rs 75 mg EC 2-06 tablet by ity of tablet 00:00: mouth in [place] 00 the Medical morning Branch and 1 tablet in the evening. Take with meals. methylPREDN 2021-02 Yes [id number] 84mg Take 21 Univers ISolone 2-05 tablets by ity of (MEDROL, 00:00: mouth [place] CHAZ,) 4 mg 00 SEE-INSTRU Med ical tablets CTIONS. Branch follow package directions methylPREDN 2021-02 Yes [id number] 84mg Take 21 Univers ISolone 2-05 tablets by ity of (MEDROL, 00:00: mouth [place]AZ,) 4 mg 00 SEE-INSTRU Med ical tablets CTIONS. Branch follow package directions methylPREDN 2021-02 Yes [id number] 84mg Take 21 Univers ISolone 2-05 tablets by ity of (MEDROL, 00:00: mouth [place] CHAZ,) 4 mg 00 SEE-INSTRU Med ical tablets CTIONS. Branch follow package directions HYDROcodone 2021-02- No 1{tbl} 1 tablet, Univers -acetaminop 0-03 10-03 Oral, ity of hen (NORCO 00:30: 00:59 ONCE, 1 [place] as 5) 5-325 mg 00 :00 dose, On Medi soledad tablet 1 Sun Branch tablet 11/15/21 at 1930, DANNA methylPREDN 2021-02 Yes [id number] Take by Univers ISolone 4 0-02 [id number] mouth ity of mg tablets 00:00: [place]-INSTRU [place] 00 CTIONS. Medical follow Branch package directions methocarbam 2021-02 Yes [id number] 750mg Take 1 Univers oL 750 mg 0-02 [id number] tablet by ity of tablet 00:00: mouth 4 00 (four) Medical times Branch daily as needed for Pain (scale 4-6). methylPREDN 2021-02 Yes [id number] Take by Univers ISolone 4 0-02 [id number] mouth ity of mg tablets 00:00: SEE-INSTRU [place] 00 CTIONS. Medical follow Branch package directions methocarbam 2021-02 Yes [id number] 750mg Take 1 Univers oL 750 mg 0-02 [id number] tablet by ity of tablet 00:00: mouth 4 00 (four) Medical times Branch daily as needed for Pain (scale 4-6). methylPREDN 2021-02 Yes [id number] Take by Univers ISolone 4 0-02 [id number] mouth ity of mg tablets 00:00: SEE-INSTRU [place] 00 CTIONS. Medical follow Branch package directions methocarbam 2021-02 Yes [id number] 750mg Take 1 Univers oL 750 mg 0-02 [id number] tablet by ity of tablet 00:00: mouth 4 [place] 00 (four) Medical times Branch daily as needed for Pain (scale 4-6). methylPREDN 2021-02 Yes [id number] Take by Univers ISolone 4 0-02 [id number] mouth ity of mg tablets 00:00: SEE-INSTRU [place] 00 CTIONS. Medical follow Branch package directions methocarbam 2021-02 Yes [id number] 750mg Take 1 Univers oL 750 mg 0-02 [id number] tablet by ity of tablet 00:00: mouth 4 [place] 00 (four) Medical times Branch daily as needed for Pain (scale 4-6). methylPREDN 2021-02 Yes [id number] Take by Univers ISolone 4 0-02 [id number] mouth ity of mg tablets 00:00: SEE-INSTRU [place] 00 CTIONS. Medical follow Branch package directions methocarbam 2021-02 Yes [id number] 750mg Take 1 Univers oL 750 mg 0-02 [id number] tablet by ity of tablet 00:00: mouth (four) Medical times Branch daily as needed for Pain (scale 4-6). methylPREDN 2021-02 Yes [id number] Take by Univers ISolone 4 0-02 [id number] mouth ity of mg tablets 00:00: SEE-INSTRU [place] 00 CTIONS. Medical follow Branch package directions methocarbam 2021-02 Yes [id number] 750mg Take 1 Univers oL 750 mg 0-02 164804 tablet by ity of tablet 00:00: mouth (four) Medical times Branch daily as needed for Pain (scale 4-6). methylPREDN 2021-02 Yes [id number] Take by Univers ISolone 4 0-02 [id number] mouth ity of mg tablets 00:00: SEE-INSTRU [place] 00 CTIONS. Medical follow Branch package directions methocarbam 2021-02 Yes [id number] 750mg Take 1 Univers oL 750 mg 0-02 [id number] tablet by ity of tablet 00:00: mouth (four) Medical times Branch daily as needed for Pain (scale 4-6). methylPREDN 2021-02 Yes [id number] Take by Univers ISolone 4 0-02 [id number] mouth ity of mg tablets 00:00: SEE-INSTRU [place] 00 CTIONS. Medical follow Branch package directions methocarbam 2021-02 Yes [id number] 750mg Take 1 Univers oL 750 mg 0-02 [id number] tablet by ity of tablet 00:00: mouth (four) Medical times Branch daily as needed for Pain (scale 4-6). methylPREDN 2021-02 Yes [id number] Take by Univers ISolone 4 0-02 [id number] mouth ity of mg tablets 00:00: SEE-INSTRU [place] 00 CTIONS. Medical follow Branch package directions methocarbam 2021-02 Yes [id number] 750mg Take 1 Univers oL 750 mg 0- [id number] tablet by ity of tablet 00:00: mouth 4 [place] 00 (four) Medical times Branch daily as needed for Pain (scale 4-6). naproxen 2021-02- Yes [id number] 375mg Take 1 Univers (EC-NAPROXE 0-03 26- [id number] tablet by ity of N) 375 mg 00:00: 04:59 mouth in [place] as EC tablet 00 :00 the Medical morning Branch and 1 tablet in the evening. Take with meals. Do all this for 10 days. traMADoL 50 2021-02- Yes [id number] 50mg Take 1 Uni vers mg tablet 0-02 10-10 tablet by ity of 00:00: 04:59 mouth [place] 00 :00 every 6 Medical (six) Branch hours as needed for Pain (scale 7-10) for up to 7 days. Indication s: acute pain TAKE ONE No (1) 9-23 TABLET(S) 00:00: BY MOUTH 00 TWICE A DAY. TAKE ONE No (1) 9-23 TABLET(S) 00:00: BY MOUTH 00 TWICE A DAY. Dose 0 No Unknown 11-05 00:00: 00 Dose 2021-0 No Unknown 11-05 00:00: 00 ketorolac 2021- No 15mg 15 mg, Unive rs (TORADOL) 07-20 06-06 Slow IV ity of injection 02:15: 01:25 Push, [place] 15 mg 00 :00 ONCE, 1 Medical dose, On Branch 07/19/21 at 2115, DANNA NaCl 0.9% 2021- No 1000mL at 999 Uni vers (NS) bolus 07-20 06-06 mL/hr, ity of infusion 02:15: 03:04 1,000 mL, Dion[place] as 1,000 mL 00 :00 IV Medical Infusion, Branch ONCE, 1 dose, On 07/19/21 at 2115, STAT traMADoL 50 Yes [id number] 50mg Take 1 Univ ers mg tablet 6-05 tablet by ity o f 00:00: mouth [place] 00 every 6 Medical (six) Branch hours as needed for Pain (scale 4-6). Indication s: acute pain traMADoL 50 2021-0 Yes [id number] 50mg Take 1 Univ ers mg tablet 6-05 tablet by ity o f 00:00: mouth [place] 00 every 6 Medical (six) Branch hours as needed for Pain (scale 4-6). Indication s: acute pain traMADoL 50 2021-0 Yes 4647 50mg Take 1 Univ ers mg tablet 6-05 tablet by ity o f 00:00: mouth [place] 00 every 6 Medical (six) Branch hours as needed for Pain (scale 4-6). Indication s: acute pain traMADoL 50 2021-0 Yes 4647 50mg Take 1 Univ ers mg tablet 6-05 tablet by ity o f 00:00: mouth [place] 00 every 6 Medical (six) Branch hours as needed for Pain (scale 4-6). Indication s: acute pain traMADoL 50 2021-0 Yes 4647 50mg Take 1 Univ ers mg tablet 6-05 tablet by ity o f 00:00: mouth [place] 00 every 6 Medical (six) Branch hours as needed for Pain (scale 4-6). Indication s: acute pain traMADoL 50 2021-0 Yes 4647 50mg Take 1 Univ ers mg tablet 6-05 tablet by ity o f 00:00: mouth [place] 00 every 6 Medical (six) Branch hours as needed for Pain (scale 4-6). Indication s: acute pain traMADoL 50 2021-0 Yes 4647 50mg Take 1 Univ ers mg tablet 6-05 tablet by ity o f 00:00: mouth [place] 00 every 6 Medical (six) Branch hours as needed for Pain (scale 4-6). Indication s: acute pain traMADoL 50 2021-0 Yes 4647 50mg Take 1 Univ ers mg tablet 6-05 tablet by ity o f 00:00: mouth [place] 00 every 6 Medical (six) Branch hours as needed for Pain (scale 4-6). Indication s: acute pain traMADoL 50 2021-0 Yes 4647 50mg Take 1 Univ ers mg tablet 6-05 tablet by ity o f 00:00: mouth [place] 00 every 6 Medical (six) Branch hours as needed for Pain (scale 4-6). Indication s: acute pain traMADoL 50 2021-0 Yes 4647 50mg Take 1 Univ ers mg tablet 6-05 tablet by ity o f 00:00: mouth [place] 00 every 6 Medical (six) Branch hours as needed for Pain (scale 4-6). Indication s: acute pain Vital Signs Vital Name Observation Time Observation Value Comments Source Systolic blood 2021-11-15 23:30:00 134 mm[Hg] Univer sity of pressure [place] [facility] Diastolic blood 2021-11-15 23:30:00 76 mm[Hg] Unive rsity of pressure [facility] Branch Heart rate 2021-11-15 23:30:00 82 /min Universi ty of [place] [facility] Body temperature 2021-11-15 23:30:00 37.17 Lashay Univ ersity of [place] [facility] Respiratory rate 2021-11-15 23:30:00 18 /min Univ ersity of [place] [facility] Body weight 2021-11-15 23:30:00 93.441 kg Universi ty of [place] [facility] BMI 2021-11-15 23:30:00 25.75 kg/m2 Universi ty [facility] Oxygen saturation in 2021-11-15 23:30:00 99 /min University of Arterial blood by [place] [facility] Pulse oximetry Branch Systolic blood 2021-07-20 03:06:00 150 mm[Hg] Univer sity of [facility] Medical [place] Diastolic blood 2021-07-20 03:06:00 93 mm[Hg] Unive rsity of [facility] Branch Heart rate 2021-07-20 03:06:00 69 /min Universi ty of [place] [facility] Respiratory rate 2021-07-20 03:06:00 18 /min [facility] Oxygen saturation in 2021-07-20 03:06:00 99 /min University of Arterial blood by [place] [facility] Pulse oximetry Branch Body temperature 2021-07-20 00:43:00 37.28 [place] Univ ersity [facility] [place] [facility] Body height 2021-07-20 00:43:00 190.5 cm Universi ty [facility] [place] [facility] Body weight 2021-07-20 00:43:00 93.441 kg Universi ty of [place] [facility] BMI 2021-07-20 00:43:00 25.75 kg/m2 Universi ty [facility] Medical Branch BP Systolic 2021-12-17 14:57:00 137 mm[Hg] BP Diastolic 2021-12-17 14:57:00 80 mm[Hg] Weight Measured 2021-12-17 14:57:00 186.00 pounds Height Measured 2021-12-17 14:57:00 75.00 inches Body Temperature 2021-12-17 14:57:00 98.40 degrees Heart Rate 2021-12-17 14:57:00 86.00 /min Respiratory Rate 2021-12-17 14:57:00 18.00 /min Heart Rate 2021-11-04 15:24:00 91.00 /min Respiratory Rate 2021-11-04 15:24:00 18.00 /min BP Systolic 2021-11-04 15:24:00 132 mm[Hg] BP Diastolic 2021-11-04 15:24:00 71 mm[Hg] Weight Measured 2021-11-04 15:24:00 185.60 pounds Height Measured 2021-11-04 15:24:00 75.00 inches Body Temperature 2021-11-04 15:24:00 98.20 degrees Procedures Procedure Date / Time Performed Performing Clinician [facility] e ASSIGNMENT OF BENEFITS 2022-01-18 19:24:41 Doctor Unassigned, No [facility] Name Medical Branch REFERRAL- 2022-01-04 06:01:00 Doctor Unassigned, No [facility] REQUEST/RESPONSE Name Medical Branch REFERRAL- 2021-12-17 05:01:00 Doctor Unassigned, No [facility] REQUEST/RESPONSE Name Medical [place] XR KNEE 3 VW LEFT 2021-11-16 00:07:[address] [facility] XR TIBIA FIBULA 2 VW 2021-11-16 00:07:28 Tunde Alvarado [facility] [place] CONSENT/REFUSAL FOR 2021-11-15 23:27:22 Doctor Unassigned, No [facility] DIAGNOSIS AND Name Medical Branch TREATMENT CT ABDOMEN PELVIS WO 2021-07-20 01:35:00 Kerwin Collado [facility] CONTRAST [facility] COMP. METABOLIC PANEL 2021-07-20 01:18:00 Krewin Collado [facility] ([id number]) Medical [place] CBC WITH DIFF 2021-07-20 01:18:00 Kerwin Collado [facility] URINALYSIS 2021-07-20 01:18:00 ColladoKerwin [facility] NOTICE OF PRIVACY 2021-07-20 00:32:07 Doctor Beth, No Univ [facility] Name [facility] Plan of Care Planned Activity Planned Date Details Comments Source Goal Plan of Care Note [code = 86124-7] Goal Plan of Care Note [code = 08741-1] Goal Plan of Care Note [code = 99625-4] Goal Plan of Care Note [code = 50527-3] Goal Plan of Care Note [code = 44813-1] Encounters Start End Encounter Admission Attending Care Care Encounter Source Date/Time Date/Time Type Type Clinicians Facility Department ID 2020-06-24 Inpatient [id number] [facility] 01:23:38 Maurizio Guerrero [facility] 2022-02-18 2022-02-18 [facility] [id number] Univers 09:00:00 09:00:00 ANNA solano [facility] 2022-01-18 2022-01-18 Office [facility] [id number] Univers 14:15:00 14:15:00 Visit Anna Gutiérrez [employer] 350.1.13.10 it y of [place] 4.2.7.2.686 Diony as MARLENE?BLEA [id number] In georgikilo MAI [address] [facility] OFFICE BUILDING 2022-01-18 2022-01-18 Outpatient Yel[facility] RAD [id number] Univers 14:15:00 14:01:16 ANNA solano [facility] 2022-01-18 2022-01-18 Telephone [facility] [id number] Univers 00:00:00 00:00:00 Anna Gutiérrez [employer] [id number] it y of [place] 4.2.7.2.686 Diony as MARLENE?BLEA [id number] In georgikilo MAI [address] [facility] OFFICE BUILDING 2022-01-18 2022-01-18 Orders Doctor STEVEN [id number] Univers 00:00:00 00:00:00 Only Unassigned, AKIN 350.1.13.10 ity of [place] [facility] 4.2.7.2.686 Diony as [id number] [address] 2022-01-04 2022-01-04 Orders Doctor MAURIZIO 1.2.840.114 [id number] Univers 00:00:00 00:00:00 Only Unassigned, AKIN 350.1.13.10 ity of [place] [facility] 4.2.7.2.686 Diony as [id number] [address] 2021-12-17 2021-12-17 Outpatient [facility] [id number] Prakash 14:52:52 14:52:52 [id number] [facility] 2021-12-17 2021-12-17 Outpatient [id number] 00:00:00 00:00:00 Visit [id number]-[id number] -abb2-9fb [id number] 02eddf 2021-12-17 2021-12-17 Orders Doctor MAURIZIO [id number] [id number] Univers 00:00:00 00:00:00 Only Unassigned, AKIN 350.1.13.10 ity of [place] [facility] 4.2.7.2.686 Diony as [id number] [address] 2021-12-16 2021-12-16 Telephone [facility] 1.2.840.114 [id number] Univers 00:00:00 00:00:00 Anna Gutiérrez [facility] 350.1.13.10 it y of [place] 4.2.7.2.686 Diony as MARLENE?BLEA [id number] [address] OFFICE [facility] 2021-12-02 2021-12-02 Telephone [facility] [id number] Univers 00:00:00 00:00:00 Anna TSANG 350.1.13.10 i ty of [place] 4[place]2.7.2.686 [place] PROFESS[place] [id number] [address] 2021-11-15 2021-11-15 Emergency X CHRISTIANO, [facility] ERT [id number] Univers 18:31:00 20:23:00 TUNDE ity [facility] 2021-11-15 2021-11-15 Emergency [facility] 1.2.840.114 [id number] Univers 18:31:00 20:23:00 Tunde TSANG 350.1.13.10 i ty [facility] 4.2.7.2.686 [facility] [id number] [address] 2021-11-04 2021-11-04 Outpatient [id number] [id number] 00:00:00 00:00:00 Visit [id number] -[id number]-2d0 fef-[id number] [id number] c15dac 2021-07-19 2021-07-19 Emergency Edd Abrams S [facility] 1.2.840 .114 [id number] Univers 19:48:00 22:08:00 [facility]win [facility]13.10 [facility] 4.2.7.2.686 [facility] [id number] [address] 2021-07-19 2021-07-19 Emergency X TOBIAS [facility] ERT [id number] Univers 19:48:00 22:08:00 KERWIN [facility] 2021-03-03 2021-03-03 Outpatient DMG DMG [id number] [employer]oted 08:00:00 08:00:00 [id number] Medica l Group Results Test Description Test Time Test Comments Results Result Comments Source COMP. METABOLIC PANEL (81231) 2021-07-20 01:42:54 Test Item Value Reference Range Interpretation Comme nts NA (test code = 3176917134) 138 mmol/L 135-145 K (test code = 9643686469) 4.1 mmol/L 3.5-5.0 CL (test code = 3247060790) 104 mmol/L 98-108 CO2 TOTAL (test code = 9686090583) 22 mmol/L 23-31 L AGAP (test code = 4320665136) 2-16 BUN (test code = 2367165496) 16 mg/dL 7-23 GLUCOSE (test code = 0624493097) 115 mg/dL 70-110 H CREATININE (test code = 0.84 mg/dL 0.60-1.25 2869670371) TOTAL BILI (test code = 0.6 mg/dL 0.1-1.0 3818020000) CALCIUM (test code = 0526610422) 8.9 mg/dL 8.6-10.6 T PROTEIN (test code = 4782949660) 6.8 g/dL 6.3-8.2 ALBUMIN (test code = 4132832175) 4.4 g/dL 3.5-5.0 ALK PHOS (test code = 4831242425) 74 U/L 34-122 ALTv (test code = 1742-6) 32 U/L 5-50 AST(SGOT) (test code = 0278000569) 32 U/L 13-40 eGFR (test code = 9260165999) mL/min/1.73m2 ANGEL (test code = ANGEL) Association [...] tests). Lab Interpretation (test code = Abnormal 12680-9) [facility] WITH [id number] 01:33:12 Test Item Value Reference Range Interpretation Comments WBC (test code = See_Comment [Automated 6690-2) message] The sy stem which generated this result transmitted reference range : 4.20 - 10.70 10*3/?L. The reference range was not used to interpret this result as normal/abnormal . RBC (test code = See_Comment [Automated 789-8) message] The sy stem which generated this [...] (test code = 35.6 fL 38.5-51.6 L 36337-7) RDW-CV (test code = 11.7 % 12.1-15.4 L 788-0) PLT (test code = See_Comment [Automated 777-3) message] The sy stem which generated this result transmitted reference range : 150 - 328 10*3/ ?L. The reference r leandro was not used to interpret this result as normal/abnormal . MPV (test code = 9.2 fL 9.8-13.0 L 42066-2) NRBC/100 WBC (test See_Comment [Automat ed code = 0770790657) message] The system which generated this result transmitted reference range : 0.0 - 10.0 /100 WBCs. The refer ence range was not u sed to interpret th is result as normal/abnormal . NRBC x10^3 (test code <0.01 See_Comment [Auto mated = 4041684270) message] The s ystem which generated this result transmitted reference range : 10*3/?L. The reference range was not used to interpret this result as normal/abnormal . GRAN MAT (NEUT) % 65.8 % (test code = 770-8) IMM GRAN % (test code 0.30 % = 8051136129) LYMPH % (test code = 22.4 % 736-9) MONO % (test code = 7.1 % 5905-5) EOS % (test code = 4.0 % 713-8) BASO % (test code = 0.4 % 706-2) GRAN MAT x10^3(ANC) 5.91 10*3/uL 1.99-6.95 (test code = 7250142308) IMM GRAN x10^3 (test 0.03 10*3/uL 0.00-0.06 code = 8540369008) LYMPH x10^3 (test code 2.02 10*3/uL 1.09-3.23 = 731-0) MONO x10^3 (test code 0.64 10*3/uL 0.36-1.02 = 742-7) EOS x10^3 (test code = 0.36 10*3/uL 0.06-0.53 711-2) BASO x10^3 (test code 0.04 10*3/uL 0.01-0.09 = 704-7) Lab Interpretation Abnormal (test code = 92122-6) [facility]2020-06-24 09:24:00 Test Item Value Reference [...] mg/dl Neetu rable cholesterol 200 -239 mg/dl Borderli ne high risk cholestero l >240 mg/dl High [...]
--- NOTE | 2022-02-12 13:12 | RAD REPORT ---
EXAM DESCRIPTION: CT - Head Brain Wo Cont - 02/12/2022 12:40 pm CLINICAL HISTORY: Dizziness COMPARISON: September 2021 TECHNIQUE: Computed axial tomography of the head was obtained. IV contrast was not requested. All CT scans are performed using dose optimization technique as appropriate and may include automated exposure control or mA/KV adjustment according to patient size. FINDINGS: An intracranial bleed is not seen . The ventricles are normal in caliber. No extra-axial fluid collection is noted. No significant hypodensity within the brain Fluid within the sinuses/ mastoids is not seen. IMPRESSION: No acute intracranial abnormality is seen. If patient's symptoms persist MRI of the bra in would be recommended.
[2022-02-12 13:27] LABS: Protime INR 1.14
[2022-02-12 13:31] LABS: Absolute Lymphocytes (CBC) 0.6 K/uL (0.7-4.9); Hematocrit 38.9 % (39.6-49.0); Lymphocytes % 14.4 % (15.3-44.8); MCV 85.3 fL (80-100); MPV 7.4 fL (7.6-11.3); RBC Red Blood Cell Count 4.56 M/uL (4.33-5.43)
[2022-02-12 13:36] LABS: Albumin 3.8 g/dL (3.4-5.0); Bilirubin Direct 0.2 mg/dL (0-0.2); Bilirubin Total 0.5 mg/dL (0.2-1.0); Magnesium 1.9 mg/dL (1.6-2.4); Potassium 3.8 mmol/L (3.5-5.1); Protein, Total 7.3 g/dL (6.4-8.2); Troponin High Sensitivity 7.9 pg/mL (<58.9)
[2022-02-12 13:57] LABS: SARS-COV-2 RT PCR NEGATIVE (NEGATIVE)
--- NOTE | 2022-02-12 14:21 | ER ---
Nurse's Notes [facility] Name: Jose J Sanchez Age: 66 yrs Sex: Male : 1955 Arrival Date: 02/12/2022 Time: 11:43 Bed Treatment Private MD: Diagnosis: Influenza due to identified novel influenza A virus Presentation: 02/12 12:20 Chief complaint: Sinus congestion, body aches, and cough x 3 days, dizziness that hb started yesterday afternoon, near syncopal episode last night at midnight. Coronavirus screen: Client presents with at least one sign or symptom that may indicate coronavirus-19. Standard/surgical mask placed on the client. Provider contacted for isolation considerations. Ebola Screen: No symptoms or risks identified at this time. Initial Sepsis Screen: Does the patient meet any 2 criteria? No. Patient's initial sepsis screen is negative. Does the patient have a suspected source of infection? No. Patient's initial sepsis screen is negative. Risk Assessment: Do you want to hurt yourself or someone else? Patient reports no desire to harm self or others. Onset of symptoms was February 09, 2022. 12:20 Method Of Arrival: Ambulatory hb 12:20 Acuity: DELICIA 3 hb Historical: - Allergies: 12:22 No Known Allergies; hb - PMHx: 12:22 Hypercholesterolemia; hb - PSHx: 12:22 back surgery; facial surgery; five knee surgery; hb - Immunization history:: Adult Immunizations up to date. - Social history:: Smoking status: Patient denies any tobacco usage or history of. Vital Signs: 12:20 BP 111 / 84; Pulse 89; Resp 18; Temp 98.1; Pulse Ox 98% on R/A; Weight 81.65 kg; Height hb 6 ft. 3 in. (190.50 cm); Pain 8/10; 12:20 Body Mass Index 22.50 (81.65 kg, 190.50 cm) hb ED Course: 11:43 Patient arrived in ED. mr 12:22 Alejandra Duron FNP-C is PHCP. kb 12:22 Joseph Mccray MD is Attending Physician. kb 12:22 Triage completed. hb 12:22 Arm band placed on. hb 12:42 CT Head Brain wo Cont In Process Unspecified. EDMS 13:30 Basic Metabolic Panel Sent. rs5 13:30 CBC with Diff Sent. rs5 13:31 Hepatic Function Sent. rs5 13:31 Magnesium Sent. rs5 13:31 Troponin High Sensitivity Sent. rs5 13:31 COVID-19/FLU A+B Sent. rs5 13:31 Inserted saline lock: 22 gauge in right antecubital area, using aseptic technique. rs5 14:08 Chest Single View XRAY In Process Unspecified. EDMS 14:28 Lola Rao, RN is Primary Nurse. iw Administered Medications: No medications were administered Outcome: 14:20 Discharge ordered by . kb 14:30 Patient left the ED. iw Signatures: Dispatcher [employer] EDMS Alejandra Duron, SCHOOL PHOTOGRAPHERLaw SCHOOL PHOTOGRAPHER-Arina Paulino mr Lola Rao, RN RN Andie Villanueva RN RN Louis Larry rs5
--- NOTE | 2022-02-12 14:21 | EDPHYS ---
Physician Documentation [facility] Name: Jose J Sanchez Age: 66 yrs Sex: Male : 1955 Arrival Date: 02/12/2022 Time: 11:43 Bed Treatment Private MD: ED Physician Joseph Mccray HPI: 02/12 17:42 This 66 yrs old Male presents to ER via Ambulatory with complaints of Near Syncope. kb 17:42 The patient has not recently seen a physician. kb 17:42 The patient or guardian reports cough, that is intermittent, described as mild. Onset: kb The symptoms/episode began/occurred 3 day(s) ago. Severity of symptoms: At their worst the symptoms were mild, moderate, in the emergency department the symptoms are unchanged. Modifying factors: The symptoms are alleviated by nothing, the symptoms are aggravated by nothing. Associated signs and symptoms: The patient has no apparent associated signs or symptoms. The patient has not experienced similar symptoms in the past. Pt reports cough and congestion for 3 days. States he woke up around midnight with dry mouth so he got up and walked to the kitchen. Once in the kitchen he became weak to entire body so he sat on the floor for a while until he got the strength to go back to bed. Historical: - Allergies: 12:22 No Known Allergies; hb - PMHx: 12:22 Hypercholesterolemia; hb - PSHx: 12:22 back surgery; facial surgery; five knee surgery; hb - Immunization history:: Adult Immunizations up to date. - Social history:: Smoking status: Patient denies any tobacco usage or history of. ROS: 17:41 Constitutional: Negative for fever, chills, and weight loss. kb 17:41 ENT: Positive for rhinorrhea, sinus congestion. 17:41 Respiratory: Positive for cough, Negative for dyspnea on exertion, hemoptysis, orthopnea, pleurisy, shortness of breath, sputum production, wheezing. 17:41 Neuro: Positive for weakness. 17:41 All other systems are negative. Exam: 17:41 Constitutional: This is a well developed, well nourished patient who is awake, alert, kb and in no acute distress. Head/Face: Normocephalic, atraumatic. ENT: Moist Mucous membranes Cardiovascular: Regular rate and rhythm with a normal S1 and S2. No gallops, murmurs, or rubs. No pulse deficits. Respiratory: Respirations even and unlabored. No increased work of breathing. Talking in full sentences Abdomen/GI: Soft, non-tender. No distention Skin: Warm, dry with normal turgor. Normal color. MS/ Extremity: Pulses equal, no cyanosis. Neurovascular intact. Full, normal range of motion. Neuro: Awake and alert, GCS 15, oriented to person, place, time, and situation. Moves all extremities. Normal gait. Psych: Awake, alert, with orientation to person, place and time. Behavior, mood, and affect are within normal limits. 18:10 ECG was reviewed by the Attending Physician. kb Vital Signs: 12:20 BP 111 / 84; Pulse 89; Resp 18; Temp 98.1; Pulse Ox 98% on R/A; Weight 81.65 kg; Height hb 6 ft. 3 in. (190.50 cm); Pain 8/10; 12:20 Body Mass Index 22.50 (81.65 kg, 190.50 cm) hb MDM: 12:22 Patient medically screened. kb 17:40 Data reviewed: vital signs, nurses notes. Data interpreted: Pulse oximetry: on room air kb is 98 %. Interpretation: normal. 17:41 Counseling: I had a detailed discussion with the patient and/or guardian regarding: the kb historical points, exam findings, and any diagnostic results supporting the discharge/admit diagnosis, lab results, radiology results, the need for outpatient follow up, a family practitioner, to return to the emergency department if symptoms worsen or persist or if there are any questions or concerns that arise at home. 02/12 12: Order name: Basic Metabolic Panel; Complete Time: 13:49 kb 02/12 12: Order name: CBC with Diff; Complete Time: 13:49 kb 02/12 12: Order name: Hepatic Function; Complete Time: 13:49 kb 02/12 12: Order name: Magnesium; Complete Time: 13:49 kb 02/12 12:29 Order name: Protime (+inr); Complete Time: 13:33 kb 02/12 12:29 Order name: Ptt, Activated; Complete Time: 13:33 kb 02/12 12:29 Order name: Troponin High Sensitivity; Complete Time: 13:49 kb 02/12 12:29 Order name: CT Head Brain wo Cont; Complete Time: 13:13 kb 02/12 12:29 Order name: Chest Single View XRAY; Complete Time: 14:24 kb 02/12 12:29 Order name: EKG; Complete Time: 12:30 kb 02/12 12:29 Order name: Cardiac monitoring kb 02/12 12:29 Order name: EKG - Nurse/Tech kb 02/12 12:29 Order name: IV Saline Lock; Complete Time: 13:30 kb 02/12 12:29 Order name: COVID-19/FLU A+B; Complete Time: 14:10 kb 02/12 12:29 Order name: Labs collected and sent kb 02/12 12:29 Order name: NPO 02/12 12:29 Order name: O2 Per Protocol 02/12 12:29 Order name: O2 Sat Monitoring 02/12 12:29 Order name: Orthostatics 02/12 12:29 Order name: Urine Dipstick-Ancillary (obtain specimen) kb EC:10 Rate is 80 beats/min. Rhythm is regular. QRS [place] is Normal. SC interval is normal at kb 158 msec. QRS interval is normal at 76 msec. QT interval is normal at 417 msec. Administered Medications: No medications were administered Disposition: 18:42 Co-signature as Attending Physician, Joseph Mccray MD. rn Disposition Summary: 02/12/22 14:20 Discharge Ordered Location: Home kb Condition: Stable kb Diagnosis - Influenza due to identified novel influenza A virus kb Followup: kb - With: Emergency Department - When: As needed - Reason: Worsening of condition Followup: kb - With: Private Physician - When: 2 - 3 days - Reason: Recheck today's complaints, Continuance of care, Re-evaluation by your physician Discharge Instructions: - Discharge Summary Sheet kb - Influenza, Adult, [id number] kb Forms: - Medication Reconciliation Form kb - Thank You Letter kb - Antibiotic Education kb - Prescription Opioid Use kb - Work release form iw Signatures: Dispatcher [employer] Alejandra Underwood, DEONNA-Jennifer YING-Joseph Hernandez MD MD rn Baxter, Heather, RN RN hb
--- NOTE | 2022-02-12 14:23 | RAD REPORT ---
EXAM DESCRIPTION: Alpesh Single View02/12/2022 2:06 pm CLINICAL HISTORY: cough COMPARISON: June 2021 FINDINGS: The lungs appear clear of acute infiltrate. The heart is normal size. Scoliosis is presen t IMPRESSION: No acute abnormalities displayed
[2022-02-12 14:43] VITALS: BP 111/84; TEMP 98.1; O2SAT 98
--- NOTE | 2022-02-16 14:35 | EKG ---
Test Date: 2022-02-12 Test Time: 13:41:46 Aids Counselor: BEVERLY MEASUREMENT RESULTS: Intervals: Rate: 80 AK: 158 QRSD: 76 QT: 360 QTc: 415 [place]: P: 72 AK: 158 QRS: 62 T: 25 INTERPRETIVE STATEMENTS: Normal sinus rhythm Minimal voltage criteria for LVH, may be normal variant Nonspecific T wave abnormality Abnormal ECG Compared to ECG 06/30/2021 00:25:45 Left ventricular hypertrophy now present T-wave abnormality still present Electronically Signed On 02-16-22 14:32:48 CNC MACHINE OPERATOR by Isaac Adames
== END 2022-02-12 14:30 | disposition home or self-care (01) ==
LOC: ER 11:40
DX: J10.1 Influenza due to other identified influenza virus with other respiratory manifestations (principal); Z20.822 Contact with and (suspected) exposure to COVID-19; E78.00 Pure hypercholesterolemia, unspecified
CPT/HCPCS: 93005; 85025; 80048; 36415; 83735; 85610; 80076; 85730; 84484; 0240U; 70450; 71045; 99283

== ENCOUNTER 2022-04-18 13:29 | Emergency (ER) | payer OTHER ==
--- OUTSIDE RECORDS SUMMARY | 2022-04-18 13:32 | XMS REPORT | Continuity of Care Document ---
:1955 Author Organization [facility] t Address [address] [place] [address] Care Team Providers Name Role Phone Bonny Baker Primary Care Physician [phone] Maurizio Wong Attending Clinician Unavailable Anna Siu MD Attending Clinician ANNA SIU Attending Clinician Unavailable Doctor Unassigned, [place] Attending Clinician Unavailable TUNDE ALVARADO Attending Clinician Unavailable Tunde Brown Attending Clinician KERWIN COLLADO Attending Clinician Unavailable Edd Abrams MD Attending Clinician Kerwin Collado APN Attending Clinician Maurizio Wong Admitting Clinician Unavailable TUNDE ALVARADO Admitting Clinician Unavailable KERWIN COLLADO Admitting Clinician Unavailable Payers Payer Name Policy Type Policy Number Effective Date Expiration Date Leticia gorman [facility] [employer] [id number] 2021 (MEDICARE 00:00:00 REPLACEMENT HMO) Problems Condition Condition Condition Status Onset Resolution Last Treating Co mments Source Name Details Category Date Date Treatment Clinician Date No known No known Disease Unive rs active active ity of problems problems [facility] Allergies, Adverse Reactions, Alerts Allergy Allergy Status Severity Reaction(s) Onset Inactive Treating Comm ents Source Name Type Date Date Clinician No Known DA Active U [facility] Allergie 5-11 [facility] s 00:00: [facility] No Known DA Active U [facility] Allergie 5-11 Corp[facility] s 00:00: [facility] NO KNOWN Drug Active Univers ALLERGIE Class ity of S [facility] Social History Social Habit Start Date Stop Date Quantity Comments Source Exposure to 2022-01-08 2022-01-18 [facility] (event) [place] Tobacco use and 2022-01-18 2022-01-18 Smokeless tobacco Un iversity of exposure 00:00:00 00:00:00 non-user [facility] Alcohol intake 2022-01-18 2022-01-18 Lifetime University of 00:00:00 00:00:00 non-drinker [facility] (finding) [place] Sex Ass[birth year] Universit y of 00:00:00 00:00:00 [facility] Smoking Status Start Date Stop Date Source Tobacco smoking consumption [facility] Branch Never smoked tobacco [facility] Medications Ordered Filled Start Stop Current Ordering Indication Dosage Frequency Signature Comments Components Source Medication Medication Date Date Medication? Clinician (SIG) Name Name DICLOFENAC Yes [id number] TAKE 1 Univers 75 mg EC 2-15 TABLET BY ity of tablet 00:00: MOUTH IN [place] 00 THE Medical MORNING [place] AND IN THE EVENING WITH MEALS diclofenac 2021-02 Yes 75mg Take 1 Unive rs 75 mg EC 2-06 tablet by ity of tablet 00:00: mouth in [place] [address] the Medical morning [place] and 1 tablet in the evening. Take with meals. diclofenac 2021-02 No 75mg Take 1 Univ ers 75 mg EC 2-06 02-15 tablet by ity o f tablet 00:00: 00:00 mouth in [place] 00 :00 the Medical morning [place] and 1 tablet in the evening. Take with meals. methylPREDN 2021-02 Yes [id number] 84mg Take 21 Univers ISolone 2-05 tablets by ity of (MEDROL, 00:00: mouth [place] CHAZ,) 4 mg 00 SEE-INSTRU Med ical tablets CTIONS. Branch follow package directions methylPREDN 2021-02 Yes [id number] 84mg Take 21 Univers ISolone 2-05 tablets by ity of (MEDROL, 00:00: mouth [place] CHAZ,) 4 mg 00 SEE-INSTRU Med ical tablets CTIONS. Branch follow package directions methylPREDN 2021-02 Yes [id number] 84mg Take 21 Univers ISolone 2-05 tablets by ity of (MEDROL, 00:00: mouth [place] CHAZ,) 4 mg 00 SEE-INSTRU Med ical tablets CTIONS. Branch follow package directions methylPREDN 2021-02 Yes [id number] 84mg Take 21 Univers ISolone 2-05 tablets by ity of (MEDROL, 00:00: mouth [place] CHAZ,) 4 mg 00 SEE-INSTRU Med ical tablets CTIONS. Branch follow package directions HYDROcodone 2021-02- No 1{tbl} 1 tablet, Univers -acetaminop 0-03 11-16 Oral, ity of hen (NORCO 00:30: 00:59 ONCE, 1 [place] as 5) 5-325 mg 00 :00 dose, On Medi soledad tablet 1 Sun Branch tablet 11/15/21 at 1930, DANNA methylPREDN 2021-02 Yes [id number] Take by Univers ISolone 4 0-02 [id number] mouth ity of mg tablets 00:00: [place]-INSTRU [place] 00 CTIONS. Medical follow Branch package directions methocarbam 2021-02 Yes [id number] 750mg Take 1 Univers oL 750 mg 0-02 [id number] tablet by ity of tablet 00:00: mouth 4 [place] 00 (four) Medical times Branch daily as needed for Pain (scale 4-6). methylPREDN 2021-02 Yes [id number] Take by Univers ISolone 4 0-02 [id number] mouth ity of mg tablets 00:00: SEE-INSTRU [place] 00 CTIONS. Medical follow Branch package directions methocarbam 2021-02 Yes [id number] 750mg Take 1 Univers oL 750 mg 0-02 [id number] tablet by ity of tablet 00:00: mouth 4 [place] 00 (four) Medical times Branch daily as needed for Pain (scale 4-6). methylPREDN 2021-02 Yes [id number] Take by Univers ISolone 4 0-02 [id number] mouth ity of mg tablets 00:00: SEE-INSTRU [place] 00 CTIONS. Medical follow Branch package directions methocarbam 2021-02 Yes [id number] 750mg Take 1 Univers oL 750 mg 0-02 [id number] tablet by ity of tablet 00:00: mouth 4 (four) Medical times Branch daily as needed for Pain (scale 4-6). methylPREDN 2021-02 Yes [id number] Take by Univers ISolone 4 0-02 050611 mouth ity of mg tablets 00:00: SEE-INSTRU [place] 00 CTIONS. Medical follow Branch package directions methocarbam 2021-02 Yes [id number] 750mg Take 1 Univers oL 750 mg 0-02 [id number] tablet by ity of tablet 00:00: mouth 4 (four) Medical times Branch daily as needed for Pain (scale 4-6). methylPREDN 2021-02 Yes [id number] Take by Univers ISolone 4 0-02 [id number] mouth ity of mg tablets 00:00: SEE-INSTRU [place] 00 CTIONS. Medical follow Branch package directions methocarbam 2021-02 Yes [id number] 750mg Take 1 Univers oL 750 mg 0-02 [id number] tablet by ity of tablet 00:00: mouth (four) Medical times Branch daily as needed for Pain (scale 4-6). methylPREDN 2021-02 Yes [id number] Take by Univers ISolone 4 0-02 [id number] mouth ity of mg tablets 00:00: SEE-INSTRU [place] 00 CTIONS. Medical follow Branch package directions methocarbam 2021-02 Yes [id number] 750mg Take 1 Univers oL 750 mg 0-02 [id number] tablet by ity of tablet 00:00: mouth (four) Medical times Branch daily as needed for Pain (scale 4-6). methylPREDN 2021-02 Yes [id number] Take by Univers ISolone 4 0-02 144693 mouth ity of mg tablets 00:00: SEE-INSTRU [place] 00 CTIONS. Medical follow Branch package directions methocarbam 2021-02 Yes [id number] 750mg Take 1 Univers oL 750 mg 0-02 [id number] tablet by ity of tablet 00:00: mouth 4 (four) Medical times Branch daily as needed for Pain (scale 4-6). methylPREDN 2021-02 Yes [id number] Take by Univers ISolone 4 0-02 581135 mouth ity of mg tablets 00:00: SEE-INSTRU [place] 00 CTIONS. Medical follow Branch package directions methocarbam 2021-02 Yes [id number] 750mg Take 1 Univers oL 750 mg 0-02 061425 tablet by ity of tablet 00:00: mouth 4 (four) Medical times Branch daily as needed for Pain (scale 4-6). methylPREDN 2021-02 Yes [id number] Take by Univers ISolone 4 0-02 325136 mouth ity of mg tablets 00:00: SEE-INSTRU [place] 00 CTIONS. Medical follow Branch package directions methocarbam 2021-02 Yes [id number] 750mg Take 1 Univers oL 750 mg 0-02 344100 tablet by ity of tablet 00:00: mouth 4 (four) Medical times Branch daily as needed for Pain (scale 4-6). methylPREDN 2021-02 Yes [id number] Take by Univers ISolone 4 0-02 784183 mouth ity of mg tablets 00:00: SEE-INSTRU [place] 00 CTIONS. Medical follow Branch package directions methocarbam 2021-02 Yes [id number] 750mg Take 1 Univers oL 750 mg 0-02 [id number] tablet by ity of tablet 00:00: mouth 4 (four) Medical times Branch daily as needed for Pain (scale 4-6). naproxen 2021-02- No [id number] 375mg Take 1 Univers (EC-NAPROXE 0-02 10-13 569999 tablet by ity of N) 375 mg 00:00: 04:59 mouth in [place] as EC tablet 00 :00 the Medical morning Branch and 1 tablet in the evening. Take with meals. Do all this for 10 days. traMADoL 50 2021-02- No 4647 50mg Take 1 Uni vers mg [...] BY MOUTH 00 TWICE A DAY. Dose 2021-0 No Unknown 11-05 00:00: 00 Dose 2021-0 No Unknown 11-05 00:00: 00 ketorolac 2021-2021- No 15mg 15 mg, Unive rs (TORADOL) 07-20 06-06 Slow IV ity of injection 02:15: 01:25 Push, [place] 15 mg 00 :00 ONCE, 1 Medical dose, On Branch 07/19/21 at 2115, DANNA NaCl 0.9% 2021- No 1000mL at 999 Uni vers (NS) bolus 07-2006 mL/hr, ity of infusion 02:15: 03:04 1,000 mL, Diony as 1,000 mL 00 :00 IV Medical Infusion, Branch ONCE, 1 dose, On 07/19/21 at 2115, STAT traMADoL 50 2021-0 Yes [id number] 50mg Take [...] Systolic blood 2021-11-15 23:30:00 134 mm[facility]Hg[facility] 2021-11-15 23:30:00 76 mm[Hg] Unive [facility] Heart rate 2021-11-15 23:30:00 82 /min [facility] Body temperature 2021-11-15 23:30:00 37.17 Lashay [facility] Respiratory rate 2021-11-15 23:30:00 18 /min [facility] Body weight 2021-11-15 23:30:00 93.441 kg [facility] BMI 2021-11-15 23:30:00 25.75 kg/m2 Universi ty of [place] Medical [place] Oxygen saturation in 2021-11-15 23:30:00 99 /min University of Arterial blood by [place] [employer] soledad Pulse oximetry Branch Systolic blood 2021-07-20 03:06:00 150 mm[Hg] Univer sity of pressure [place] Medical [place] Diastolic blood 2021-07-20 03:06:00 93 mm[Hg] Unive rsity of pressure [facility] Heart rate 2021-07-20 03:06:00 69 /min Universi ty of [place] Medical Branch Respiratory rate 2021-07-20 03:06:00 18 /min [facility] Oxygen saturation in 2021-07-20 03:06:00 99 /min University of Arterial blood by [facility] Pulse oximetry Branch Body temperature 2021-07-20 00:43:00 37.28 Lashay [facility] [place] Medical [place] Body height 2021-07-20 00:43:00 190.5 cm Universi ty [facility] Medical [place] Body weight 2021-07-20 00:43:00 93.441 kg Universi ty [facility] Medical [place] BMI 2021-07-20 00:43:00 25.75 kg/m2 [facility] BP Systolic 2021-12-17 14:57:00 137 mm[Hg] BP [...] Procedure Date / Time Performed Performing Clinician [facility] e ASSIGNMENT OF BENEFITS 2022-01-18 19:24:41 Doctor Unassigned, No [facility] Name Medical Branch REFERRAL- 2022-01-04 06:01:00 Doctor Unassigned, No [facility] REQUEST/RESPONSE Name Medical Branch REFERRAL- 2021-12-17 05:01:00 Doctor Unassigned, No [facility] REQUEST/RESPONSE Name Medical Branch XR KNEE 3 VW LEFT 2021-11-16 00:07:28 Tunde Alvarado [facility] XR TIBIA FIBULA 2 VW 2021-11-16 00:07:28 Tunde Alvarado [facility] CONSENT/REFUSAL FOR 2021-11-15 23:27:22 Doctor Unassigned, No [facility] DIAGNOSIS AND Name Medical Branch TREATMENT CT ABDOMEN PELVIS WO 2021-07-20 01:35:00 Kerwin Collado [facility] CONTRAST [facility] COMP. METABOLIC PANEL 2021-07-20 01:18:00 Kerwin Collado [facility] ([id number]) [facility] CBC WITH DIFF 2021-07-20 01:18:00 Kerwin Collado [facility] URINALYSIS 2021-07-20 01:18:00 Kerwin Collado [facility] NOTICE OF PRIVACY 2021-07-20 00:32:07 Doctor Unassigned, No [facility] PR[facility] Name Medical [place] Plan of Care Planned Activity Planned Date Details Comments Source Goal Plan of Care Note [code = 80190-7] Goal Plan of Care Note [code = 97073-2] Goal Plan of Care Note [code = 14052-2] Goal Plan of Care Note [code = 48807-7] Goal Plan of Care Note [code = 70096-6] Encounters Start End Encounter Admission Attending Care Care Encounter Source Date/Time Date/Time Type Type Clinicians Facility Department ID 2020-06-24 Inpatient [id number] 01:23:38 Maurizio Guerrero [facility] 2022-03-27 2022-03-27 ERVIN Shannon [id number] Univers 00:00:00 00:00:00 Anna MIX 350.1.13.10 it y of [place] 4.2.7.2.686 Diony as MARLENE?BLEA [id number] [facility] 0[address] [facility]ICE [facility] 2022-02-18 2022-02-18 [facility] [id number] Univers 09:00:00 09:00:00 ANNA [facility] 2022-01-18 2022-01-18 Office [facility] [id number] Univers 14:15:00 14:15:00 Visit Anna MIX 350.1.13.10 it [facility] 4.2.7.2.686 Diony as MARLENE?BLEA [id number] [facility] OFFICE [facility] 2022-01-18 2022-01-18 [facility] [id number] Univers 14:15:00 14:01:16 ANNA [facility] 2022-01-18 2022-01-18 Telephone [facility] [id number] Univers 00:00:00 00:00:00 Anna MIX 350.1.13.10 it y of [place] 4.2.7.2.686 Diony as MARLENE?BLEA [id number] [address] OFFICE [facility] 2022-01-18 2022-01-18 Orders Doctor STEVEN [id number] Univers 00:00:00 00:00:00 Only Unassigned, AKIN 350.1.13.10 ity of [place] [facility] 4.2.7.2.686 Diony as [id number] [address] 2022-01-04 2022-01-04 Orders Doctor MAURIZIO 1.2.840.114 [id number] Univers 00:00:00 00:00:00 Only Unassigned, AKIN 350.1.13.10 ity of [place] [facility]OSP[facility] 4.2.7.2.686 Diony as [id number] [address] 2021-12-17 2021-12-17 Outpatient [facility] [id number] Prkaash 14:52:52 14:52:52 [id number] [facility] 2021-12-17 2021-12-17 Outpatient [id number] 00:00:00 00:00:00 Visit [id number]-[id number] -[id number] [id number] 02eddf 2021-12-17 2021-12-17 Orders Doctor MAURIZIO 1.2.840.114 [id number] Univers 00:00:00 00:00:00 Only Unassigned, AKIN 350.1.13.10 ity of [place] [facility] 4.2.7.2.686 Diony as [id number] [facility] 009 [place] 2021-12-16 2021-12-16 Telephone [facility] 1.2.840.114 [id number] Univers 00:00:00 00:00:00 Anna Gutiérrez [facility] 350.1.13.10 it y of [place] 4.2.7.2.686 Diony as MARLENE?BLEA [id number] Il dickilo [address] OFFICE [facility] 2021-12-02 2021-12-02 Telephone [facility] 1.2.840.114 [id number] Univers 00:00:00 00:00:00 [facility] 350.1.13.10 i ty of [place] PROF[place] [id number] Il dickilo [address] 2021-11-15 2021-11-[address] [facility] ERT [id number] Univers 18:31:00 20:23:00 TUNDE ity of [facility] 2021-11-15 2021-11-15 Emergency [facility] [id number] Univers 18:31:00 20:23:00 Tundemarie [facility] 350.1.13.10 i ty [place]2.7.[place] [id number] [facility] 084 [place] 2021-11-04 2021-11-04 Outpatient [id number] [id number] 00:00:00 00:00:00 Visit cce4-443d ce4-443d-b -bfef-2d0 fef-2d0e6d [id number] c15dac 2021-07-19 2021-07-19 Emergency X ERVIN COLLADO ERT [id number] Univers 19:48:00 22:08:00 KERWIN [facility] 2021-07-19 2021-07-19 Emergency Edd Abrams S [facility] 1.2.840 .114 [id number] Univers 19:48:00 22:08:00 ColladoKerwin [place] 350.1.13.10 xiomara [facility] 4.2.7.2.686 [facility] [id number] [address] 2021-03-03 2021-03-03 Outpatient DMG DMG [id number] [facility]oted 08:00:00 08:00:00 [id number] Medica l Group Results Test Description Test Time Test Comments Results Result Comments Source COMP. METABOLIC PANEL (42803) 2021-07-20 01:42:54 Test Item Value Reference Range Interpretation Comme nts NA (test code = 2049865360) 138 mmol/L 135-145 K (test code = 7775915284) 4.1 mmol/L 3.5-5.0 CL (test code = 6753312375) 104 mmol/L 98-108 CO2 TOTAL (test code = 8082121643) 22 mmol/L 23-31 L AGAP (test code = 2318175915) 2-16 BUN (test code = 1493517691) 16 mg/dL 7-23 GLUCOSE (test code = 7288769573) 115 mg/dL 70-110 H CREATININE (test code = 0.84 mg/dL 0.60-1.25 2419705867) TOTAL BILI (test code = 0.6 mg/dL 0.1-1.0 4976840444) CALCIUM (test code = 6645512266) 8.9 mg/dL 8.6-10.6 T PROTEIN (test code = 9703568945) 6.8 g/dL 6.3-8.2 ALBUMIN (test code = 2141533423) 4.4 g/dL 3.5-5.0 ALK PHOS (test code = 7669155066) 74 U/L 34-122 ALTv (test code = 1742-6) 32 U/L 5-50 AST(SGOT) (test code = 8557373205) 32 U/L 13-40 eGFR (test code = 2027192047) mL/min/1.73m2 ANGEL (test code = ANGEL) Association [...] tests). Lab Interpretation (test code = Abnormal 50492-8) [facility] WITH [id number] 01:33:12 Test Item Value Reference Range Interpretation [...] (test code = 35.6 fL 38.5-51.6 L 69750-4) RDW-CV (test code = 11.7 % 12.1-15.4 L 788-0) PLT (test code = See_Comment [Automated 777-3) message] The sy stem which generated this result transmitted reference range : 150 - 328 10*3/ ?L. The reference r leandro was not used to interpret this result as normal/abnormal . MPV (test code = 9.2 fL 9.8-13.0 L 66550-1) NRBC/100 WBC (test See_Comment [Automat ed code = 0699354919) message] The system which generated this result transmitted reference range : 0.0 - 10.0 /100 WBCs. The refer ence range was not u sed to interpret th is result as normal/abnormal . NRBC x10^3 (test code <0.01 See_Comment [Auto mated = 5319320886) message] The s ystem which generated this result transmitted reference range : 10*3/?L. The reference range was not used to interpret this result as normal/abnormal . GRAN MAT (NEUT) % 65.8 % (test code = 770-8) IMM GRAN % (test code 0.30 % = 6858588875) LYMPH % (test code = 22.4 % 736-9) MONO % (test code = 7.1 % 5905-5) EOS % (test code = 4.0 % 713-8) BASO % (test code = 0.4 % 706-2) GRAN MAT x10^3(ANC) 5.91 10*3/uL 1.99-6.95 (test code = 7495610194) IMM GRAN x10^3 (test 0.03 10*3/uL 0.00-0.06 code = 3117040376) LYMPH x10^3 (test code 2.02 10*3/uL 1.09-3.23 = 731-0) MONO x10^3 (test code 0.64 10*3/uL 0.36-1.02 = 742-7) EOS x10^3 (test code = 0.36 10*3/uL 0.06-0.53 711-2) BASO x10^3 (test code 0.04 10*3/uL 0.01-0.09 = 704-7) Lab Interpretation Abnormal (test code = 81667-1) [facility]1C[facility]2020-06-24 09:24:00 Test Item Value Reference [...]
--- NOTE | 2022-04-18 14:29 | ER ---
Nurse's Notes [facility] Name: Jose J Sanchez Age: 66 yrs Sex: Male : 1955 Arrival Date: 04/18/2022 Time: 13:32 Bed 12 Private MD: Diagnosis: Bursitis Presentation: 04/18 13:52 Chief complaint: Patient states: Right arm swelling that began about two days ago. vg1 Denies injury. Coronavirus screen: Vaccine status: Patient reports being unvaccinated. Client denies travel out of the [place] in the last 14 days. Ebola Screen: Patient negative for fever greater than or equal to 101.5 degrees Fahrenheit, and additional compatible Ebola Virus Disease symptoms. Initial Sepsis Screen: Does the patient meet any 2 criteria? No. Patient's initial sepsis screen is negative. Does the patient have a suspected source of infection? No. Patient's initial sepsis screen is negative. Risk Assessment: Do you want to hurt yourself or someone else? Patient reports no desire to harm self or others. Onset of symptoms was April 16, 2022. 13:52 Method Of Arrival: Ambulatory vg1 13:52 Acuity: DELICIA 3 vg1 Triage Assessment: 13:53 General: Appears in no apparent distress. comfortable, Behavior is calm, cooperative. vg1 Pain: Complains of pain in dorsal aspect of right forearm Pain currently is 9 out of 10 on a pain scale. Pain began 2-3 days ago. Neuro: Level of Consciousness is awake, alert, obeys commands, Oriented to person, place, time, situation. Musculoskeletal: Circulation, motion, and sensation intact. Swelling present in dorsal aspect of right forearm. Historical: - Allergies: 13:53 No Known Allergies; vg1 - Home Meds: 13:53 atorvastatin Oral [Active]; trazodone 50 mg Oral tab 1 tab once daily [Active]; vg1 Benadryl 25 mg Oral cap 1 cap once daily for insomnia [Active]; - PMHx: 13:53 Hypercholesterolemia; vg1 - PSHx: 13:53 back surgery; facial surgery; five knee surgery; vg1 - Immunization history:: Client reports having NOT received the Covid vaccine. - Social history:: Smoking status: Patient denies any tobacco usage or history of. Screenin:00 [facility] ED Fall Risk Assessment (Adult) History of falling in the last 3 months, jl7 including since admission No falls in past 3 months (0 pts). Abuse screen: Denies threats or abuse. Denies injuries from another. Nutritional screening: No deficits noted. Tuberculosis screening: No symptoms or risk factors identified. Assessment: 14:00 General: Appears in no apparent distress. uncomfortable, Behavior is calm, cooperative, jl7 appropriate for age. Pain: Complains of pain in dorsal aspect of right forearm Pain currently is 9 out of 10 on a pain scale. Neuro: Level of Consciousness is awake, alert, obeys commands, Oriented to person, place, time. Cardiovascular: Patient's skin is warm and dry. Respiratory: Airway is patent Respiratory effort is even, unlabored, Respiratory pattern is regular, symmetrical. Derm: Skin is pink, warm \T\ dry. Musculoskeletal: Range of motion: intact in all extremities, Swelling present in dorsal aspect of right forearm. Vital Signs: 13:52 BP 128 / 74; Pulse 83; Resp 16; Temp 98.7(O); Pulse Ox 98% on R/A; Weight 81.65 kg; vg1 Height 6 ft. 3 in. (190.50 cm); Pain 9/10; 13:52 Body Mass Index 22.50 (81.65 kg, 190.50 cm) vg1 ED Course: 13:32 Patient arrived in ED. ja2 13:40 Marissa Reed PA is PHCP. en 13:40 Mehul Mckinnon MD is Attending Physician. en 13:53 Triage completed. vg1 13:53 Arm band placed on. vg1 13:55 Nohelia Banks, ROLA is Primary Nurse. jl7 14:00 Patient has correct armband on for positive identification. jl7 14:27 Joel Nino MD is Referral Physician. en 14:42 No provider procedures requiring assistance completed. Patient did not have IV access jl7 during this emergency room visit. Administered Medications: No medications were administered Medication: 14:00 VIS not applicable for this client. jl7 Outcome: 14:28 Discharge ordered by . en 14:42 Discharged to home ambulatory. jl7 14:42 Condition: stable 14:42 Discharge instructions given to patient, Instructed on discharge instructions, follow up and referral plans. medication usage, Demonstrated understanding of instructions, follow-up care, medications, Prescriptions given X 2. 14:42 Patient left the ED. alva7 Signatures: Nohelia Banks RN RN jl7 Madeleine Espino RN RN vg1 Cindi Vázquez Elizabeth, PA PA en
--- NOTE | 2022-04-18 14:29 | EDPHYS ---
Physician Documentation [facility] Name: Jose J Sanchez Age: 66 yrs Sex: Male : 1955 Arrival Date: 04/18/2022 Time: 13:32 Bed 12 Private MD: ED Physician Mehul Mckinnon HPI: 04/18 14:20 This 66 yrs old Male presents to ER via Ambulatory with complaints of Arm Swelling. en 14:20 66-year-old mbdwx-qvfa-lcoaznyw male presents to ED with right elbow pain by 5 months. en He has been seen by Dr. Paredes, orthopedist in the past but unsure of diagnosis. He was given unknown medications 3 months ago which she completed but does not know the name of them. 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 He describes pain as aching over the medial elbow radiating into the biceps and worse with flexion of the elbow.. Historical: - Allergies: 13:53 No Known Allergies; vg1 - Home Meds: 13:53 atorvastatin Oral [Active]; trazodone 50 mg Oral tab 1 tab once daily [Active]; vg1 Benadryl 25 mg Oral cap 1 cap once daily for insomnia [Active]; - PMHx: 13:53 Hypercholesterolemia; vg1 - PSHx: 13:53 back surgery; facial surgery; five knee surgery; vg1 - Immunization history:: Client reports having NOT received the Covid vaccine. - Social history:: Smoking status: Patient denies any tobacco usage or history of. ROS: 14:20 Constitutional: Negative for fever, chills, and weight loss. en 14:20 MS/extremity: Positive for Right elbow pain and swelling. Exam: 14:20 Constitutional: This is a well developed, well nourished patient who is awake, alert, en and in no acute distress. 14:20 Musculoskeletal/extremity: mild medial swelling over elbow with FROM, no erythema or warmth. NVI, compartments soft. Vital Signs: 13:52 BP 128 / 74; Pulse 83; Resp 16; Temp 98.7(O); Pulse Ox 98% on R/A; Weight 81.65 kg; vg1 Height 6 ft. 3 in. (190.50 cm); Pain 9/10; 13:52 Body Mass Index 22.50 (81.65 kg, 190.50 cm) vg1 MDM: 14:03 Patient medically screened. en 14:20 Differential diagnosis: strain vs tendonitis vs bursitis. Data reviewed: vital signs, en nurses notes, and as a result, I will discharge patient. ED course: no new trauma to warrant imaging. Will d/c home with medrol dose pack and NSAID with Ortho f/u. Administered Medications: No medications were administered Disposition: 15:11 Co-signature as Attending Physician, Mehul Mckinnon MD I agree with the assessment and kdr plan of care. Disposition Summary: 04/18/22 14:28 Discharge Ordered Location: Home en Problem: an acute exacerbation en Symptoms: have worsened en Condition: Stable en Diagnosis - Bursitis en Followup: en - With: Joel Paredes MD - When: 2 - 3 days - Reason: Re-evaluation by your physician Discharge Instructions: - Discharge Summary Sheet en - Bursitis en - Bursitis, Asqe-sv-Vwvc en Forms: - Medication Reconciliation Form en - Thank You Letter en - Antibiotic Education en - Prescription Opioid Use en Prescriptions: - Anaprox DS 550 mg Oral Tablet - take 1 tablet by ORAL route every 12 hours As needed; 20 tablet; Refills: 0, en Product Selection Permitted - Medrol (Ilan) 4 mg Oral Tablets, Dose Pack - take 1 tablet by ORAL route as directed - follow package instructions; 1 en packet; Refills: 0, Product Selection Permitted Signatures: Mehul Mckinnon MD MD kdr Garcia, Victoria RN RN vg1 Marissa Reed PA PA en
== END 2022-04-18 14:42 | disposition home or self-care (01) ==
LOC: ER 13:29
DX: M71.9 Bursopathy, unspecified (principal)
CPT/HCPCS: 99282

== ENCOUNTER 2022-08-10 20:40 | Emergency (ER) | payer OTHER ==
--- OUTSIDE RECORDS SUMMARY | 2022-08-10 20:48 | XMS REPORT | Continuity of Care Document ---
:1955 Author Organization [facility] t Address [address] [place] [address] [address] [place] [address] Care Team Providers Name Role Phone Bonny Baker Primary Care Physician [phone] Maurizio Wong Attending Clinician Unavailable Anna Siu MD Attending Clinician ANNA SIU Attending Clinician Unavailable Doctor Unassigned, [place] Attending Clinician Unavailable TUNDE ALVARADO Attending Clinician Unavailable Tunde Brown Attending Clinician KERWIN COLLADO Attending Clinician Unavailable Edd Abrams MD Attending Clinician Kerwin Collado APN Attending Clinician Maurizio Wong Admitting Clinician Unavailable TUNDE ALVARADO Admitting Clinician Unavailable KERWIN COLLADO Admitting Clinician Unavailable Payers Payer Name Policy Type Policy Number Effective Date Expiration Date Leticia [email or web address] [email or web address] [email or web address] 2021 (MEDICARE 00:00:00 REPLACEMENT HMO) Problems Condition Condition Condition Status Onset Resolution Last Treating Co mments Source Name Details Category Date Date Treatment Clinician Date No known No known Disease Unive rs active active ity of problems problems [facility] Allergies, Adverse Reactions, Alerts Allergy Allergy Status Severity Reaction(s) Onset Inactive Treating Comm ents Source Name Type Date Date Clinician No Known DA Active U [facility] Allergie 5-11 Corpus s 00:00: Shanon [facility] No Known DA Active U [facility] Allergie 5-11 Corpus s 00:00: Shanon [facility] NO KNOWN Drug Active Univers ALLERGIE Class ity of S [facility] Social History Social Habit Start Date Stop Date Quantity Comments Source Exposure to 2022-01-08 2022-01-18 Not sure [facility]-CoV-2 00:00:00 13:19:00 [facility] (event) [place] Tobacco use and 2022-01-18 2022-01-18 Smokeless tobacco Un iversity of exposure 00:00:00 00:00:00 non-user [facility] Alcohol intake 2022-01-18 2022-01-18 Lifetime University of 00:00:00 00:00:00 non-drinker [facility] (finding) [place] Sex Ass[birth year] Universit y of 00:00:00 00:00:00 [facility] Smoking Status Start Date Stop Date Source Tobacco smoking consumption Univ ersity of [facility] unknown Branch Never smoked tobacco [facility] Medications Ordered Filled Start Stop Current Ordering Indication Dosage Frequency Signature Comments Components Source Medication Medication Date Date Medication? Clinician (SIG) Name Name DICLOFENAC Yes [id number] TAKE 1 Univers 75 mg EC 2-15 TABLET BY ity of tablet 00:00: MOUTH IN [place] 00 THE Medical MORNING Branch AND IN THE EVENING WITH MEALS diclofenac 2021-02 Yes 75mg Take 1 Unive rs 75 mg EC 2-06 tablet by ity of tablet 00:00: mouth in [place] 00 the Medical morning Branch and 1 tablet in the evening. Take with meals. diclofenac 2021-02 No 75mg Take 1 Univ ers 75 mg EC 2-06 02-15 tablet by ity o f tablet 00:00: 00:00 mouth in [place] 00 :00 the Medical morning Branch and 1 tablet in the evening. Take with meals. methylPREDN 2021-02 Yes [id number] 84mg Take 21 Univers ISolone 2-05 tablets by ity of (MEDROL, 00:00: mouth [place] CHAZ,) 4 mg 00 SEE-INSTRU Med ical tablets CTIONS. Branch follow package directions methylPREDN 2021-02 Yes [id number] 84mg Take 21 Univers ISolone 2-05 tablets by ity of (MEDROL, 00:00: mouth [place] CHAZ,) 4 mg 00 SEE-INSTRU Med ical tablets CTIONS. Branch follow package directions methylPREDN 2021-02 Yes [id number] 84mg Take 21 Univers ISolone 2-05 tablets by ity of (MEDROL, 00:00: mouth [place] CHAZ,) 4 mg 00 SEE-INSTRU Med ical tablets CTIONS. Branch follow package directions methylPREDN 2021-02 Yes [id number] 84mg Take 21 Univers ISolone 2-05 tablets [...] 11/15/21 at 1930, DANNA methylPREDN 2021-02 Yes [id number] Take by Univers ISolone 4 0-02 [id number] mouth ity of mg tablets 00:00: [place]-INSTRU [place] 00 CTIONS. Medical follow Branch package directions methocarbam 2021-02 Yes [id number] 750mg Take 1 Univers oL 750 mg 0-02 [id number] tablet by ity of tablet 00:00: mouth 4 [place] 00 (four) Medical times Branch daily as needed for Pain (scale 4-6). methylPREDN 2021-02 Yes [id number] Take by Univers ISolone 4 0-02 [id number] mouth ity of mg tablets 00:00: SEE-INSTRU [place] 00 CTIONS. Medical follow Branch package directions methocarbam 2021-02 Yes [id number] 750mg Take 1 Univers oL 750 mg 0-02 [id number] tablet by ity of tablet 00:00: mouth 4 [place] 00 (four) Medical times Branch daily as needed for Pain (scale 4-6). methylPREDN 2021-02 Yes [id number] Take by Univers ISolone 4 0-02 [id number] mouth ity of mg tablets 00:00: SEE-INSTRU [place] 00 CTIONS. Medical follow Branch package directions methocarbam 2021-02 Yes [id number] 750mg Take 1 Univers oL 750 mg 0-02 [id number] tablet by ity of tablet 00:00: mouth 4 (four) Medical times Branch daily as needed for Pain (scale 4-6). methylPREDN 2021-02 Yes [id number] Take by Univers ISolone 4 0-02 [id number] mouth ity of mg tablets 00:00: SEE-INSTRU [place] CTIONS. Medical follow Branch package directions methocarbam 2021-02 Yes [id number] 750mg Take 1 Univers oL 750 mg 0-02 [id number] tablet by ity of tablet 00:00: mouth 4 (four) Medical times Branch daily as needed for Pain (scale 4-6). methylPREDN 2021-02 Yes [id number] Take by Univers ISolone 4 0-02 312133 mouth ity of mg tablets 00:00: SEE-INSTRU [place] CTIONS. Medical follow Branch package directions methocarbam 2021-02 Yes [id number] 750mg Take 1 Univers oL 750 mg 0-02 [id number] tablet by ity of tablet 00:00: mouth (four) Medical times Branch daily as needed for Pain (scale 4-6). methylPREDN 2021-02 Yes [id number] Take by Univers ISolone 4 0-02 450208 mouth ity of mg tablets 00:00: SEE-INSTRU [place] CTIONS. Medical follow Branch package directions methocarbam 2021-02 Yes [id number] 750mg Take 1 Univers oL 750 mg 0-02 [id number] tablet by ity of tablet 00:00: mouth 4 (four) Medical times Branch daily as needed for Pain (scale 4-6). methylPREDN 2021-02 Yes [id number] Take by Univers ISolone 4 0-02 [id number] mouth ity of mg tablets 00:00: SEE-INSTRU [place] CTIONS. Medical follow Branch package directions methocarbam 2021-02 Yes [id number] 750mg Take 1 Univers oL 750 mg 0-02 002391 tablet by ity of tablet 00:00: mouth 4 (four) Medical times Branch daily as needed for Pain (scale 4-6). methylPREDN 2021-02 Yes [id number] Take by Univers ISolone 4 0-02 331714 mouth ity of mg tablets 00:00: SEE-INSTRU [place] 00 CTIONS. Medical follow Branch package directions methocarbam 2021-02 Yes [id number] 750mg Take 1 Univers oL 750 mg 0-02 193218 tablet by ity of tablet 00:00: mouth 4 (four) Medical times Branch daily as needed for Pain (scale 4-6). methylPREDN 2021-02 Yes [id number] Take by Univers ISolone 4 0-02 490352 mouth ity of mg tablets 00:00: SEE-INSTRU [place] 00 CTIONS. Medical follow Branch package directions methocarbam 2021-02 Yes [id number] 750mg Take 1 Univers oL 750 mg 0-02 [id number] tablet by ity of tablet 00:00: mouth 4 [place] (four) Medical times Branch daily as needed for Pain (scale 4-6). methylPREDN 2021-02 Yes [id number] Take by Univers ISolone 4 0-02 856336 mouth ity of mg tablets 00:00: SEE-INSTRU [place] 00 CTIONS. Medical follow Branch package directions methocarbam 2021-02 Yes [id number] 750mg Take 1 Univers oL 750 mg 0-02 543577 tablet by ity of tablet 00:00: mouth 4 (four) Medical times Branch daily as needed for Pain (scale 4-6). naproxen 2021-02- No [id number] 375mg Take 1 Univers (EC-NAPROXE 0-02 10-13 327940 tablet by ity of N) 375 mg [...] BY MOUTH 00 TWICE A DAY. Dose No Unknown 11-05 00:00: 00 Dose 2021-0 No Unknown 11-05 00:00: 00 ketorolac No 15mg 15 mg, Unive rs (TORADOL) 07-20 06-06 Slow IV ity of injection 02:15: 01:25 Push, [place] 15 mg 00 :00 ONCE, 1 Medical dose, On Branch 07/19/21 at 2115, DANNA NaCl 0.9% 2021- No 1000mL at 999 Uni vers (NS) bolus 07-20 0606 mL/hr, ity of infusion 02:15: 03:04 1,000 [...] 4-6). Indication s: acute pain traMADoL 50 0 Yes 4647 50mg Take 1 Univ ers [...] blood 2021-11-15 23:30:00 134 mm[Hg] Univer sity [facility] Diastolic blood 2021-11-15 23:30:00 76 mm[Hg] Unive [facility] Heart rate 2021-11-15 23:30:00 82 /min [facility] Body temperature 2021-11-15 23:30:00 37.17 Lashay [facility] Respiratory rate 2021-11-15 23:30:00 18 /min [facility] Body weight 2021-11-15 23:30:00 93.441 kg [facility] BMI 2021-11-15 23:30:00 25.75 kg/m2 Universi ty [facility] Medical [place] Oxygen saturation in 2021-11-15 23:30:00 99 /min University of Arterial blood by [place] [employer] soledad Pulse oximetry Branch Systolic blood 2021-07-20 03:06:00 150 mm[Hg] Univer sity of pressure [facility] Diastolic blood 2021-07-20 03:06:00 93 mm[Hg] Unive rsity of pressure [facility] Heart rate 2021-07-20 03:06:00 69 /min Universi ty of [place] Medical [facility] Respiratory rate 2021-07-20 03:06:00 18 /min Univ ersity of [facility] Oxygen saturation in 2021-07-20 03:06:00 99 /min University of Arterial blood by [facility] [place] [facility] Pulse oximetry Branch Body temperature 2021-07-20 00:43:00 37.28 Lashay Univ ersity of [facility] Body height 2021-07-20 00:43:00 190.5 cm Universi ty [facility] Body weight 2021-07-20 00:43:00 93.441 kg [facility] BMI 2021-07-20 00:43:00 25.75 kg/m2 [facility] BP Systolic 2021-12-17 14:57:00 137 [...] / Time Performed Performing Clinician Ruthie gonzalez ASSIGNMENT OF BENEFITS 2022-01-18 19:24:41 Doctor Unassigned, No [facility] Name Medical Branch REFERRAL- 2022-01-04 06:01:00 Doctor Unassigned, No [facility] REQUEST/RESPONSE Name Medical Branch REFERRAL- 2021-12-17 05:01:00 Doctor Unassigned, No [facility] REQUEST/RESPONSE Name [facility] XR KNEE 3 VW LEFT 2021-11-16 00:07:28 Tunde Alvarado [facility] XR TIBIA FIBULA 2 VW 2021-11-16 00:07:28 Tunde Alvarado [facility] CONSENT/REFUSAL FOR 2021-11-15 23:27:22 Doctor Unassigned, No [facility] DIAGNOSIS AND Name Medical Branch TREATMENT CT ABDOMEN PELVIS WO 2021-07-20 01:35:00 Kerwin Collado [facility] CONTRAST [facility] COMP. METABOLIC PANEL 2021-07-20 01:18:00 Kerwin Collado [facility] ([id number]) Medical [place] CBC WITH DIFF 2021-07-20 01:18:00 Kerwin Collado [facility] URINALYSIS 2021-07-20 01:18:00 Kerwin Clolado [facility] NOTICE OF PRIVACY 2021-07-20 00:32:07 Doctor Unassigned, No [facility] PRACTICES Name [facility] Plan of Care Planned Activity Planned Date Details Comments Source Goal Plan of Care Note [code = 67137-6] Goal Plan of Care Note [code = 02467-5] Goal Plan of Care Note [code = 14926-7] Goal Plan of Care Note [code = 14363-4] Goal Plan of Care Note [code = 60231-7] Encounters Start End Encounter Admission Attending Care Care Encounter Source Date/Time Date/Time Type Type Clinicians Facility Department ID 2020-06-24 Inpatient UR [facility] [id number] [facility] 01:23:38 Maurizio Guerrero [facility] 2022-03-272022-03-27 [facility] [id number] Univers 00:00:00 00:00:00 Anna MIX 350.1.13.10 it y of [place] 4.2.7.2.686 Diony as MARLENE?BLEA [id number] [place] calvin [facility] 044 [facility] OFFICE [facility] 2022-02-18 2022-02-[address] [facility] [id number] Univers 09:00:00 09:00:00 ANNA solano [facility] 2022-01-18 2022-01-18 [facility] [id number] Univers 14:15:00 14:15:00 Visit Anna MIX 350.1.13.10 it [facility] 4.2.7.2.686 Diony as MARLENE?BLEA [id number] [facility] 198 [facility] OFFICE [facility] 2022-01-18 2022-01-18 [facility] [id number] Univers 14:15:00 14:01:16 ANNA solano [facility] 2022-01-18 2022-01-18 Telephone [facility] [id number] [id number] Univers 00:00:00 00:00:00 Anna MIX 350.1.13.10 it y [facility] 4.2.7.2.686 Diony as MARLENE?BLEA [id number] [address] OFFICE [facility] 2022-01-18 2022-01-18 Orders Doctor STEVEN [id number] [id number] Univers 00:00:00 00:00:00 Only Unassigned, AKIN 350.1.13.10 ity of [place] 4.2.7.2.686 Diony as [id number] [address] 2022-01-04 2022-01-04 Orders Doctor MAURIZIO 1.2.840.114 [id number] Univers 00:00:00 00:00:00 Only Unassigned, AKIN 350.1.13.10 ity of [place] 4.2.7.2.686 Diony as [id number] [address] 2021-12-17 2021-12-17 Outpatient KATIE W[place]SON [id number]- Prakash 14:52:52 14:52:52 [id number] F Champ 2021-12-17 2021-12-17 Outpatient [id number] 00:00:00 00:00:00 Visit [id number] -[id number] [id number] 2021-12-17 2021-12-17 Orders Doctor MAURIZIO 1.2.840.114 [id number] Univers 00:00:00 00:00:00 Only Unassigned, AKIN 350.1.13.10 ity of [place] [facility] 4.2.7.2.686 Diony as [id number] [address] 2021-12-16 2021-12-16 Telephone [facility] 1.2.840.114 [id number] Univers 00:00:00 00:00:00 Anna [facility] 350.1.13.10 it y of [place] 4.2.7.2.686 Diony as MARLENE?BLEA [id number] [place] dic[address] OFFICE BUILDING 2021-12-02 2021-12-02 Telephone [facility] 1.2.840.114 [id number] Univers 00:00:00 00:00:00 [facility] 350.1.13.10 i ty of [place].7.2.[address] [place] [address] [facility] [id number] [place] [address] 2021-11-15 2021-11-15 Emergency X [facility] ERT [id number] Univers 18:31:00 20:23:00 TUNDE ity of [facility] 2021-11-15 2021-11-15 Emergency [facility] 1.2.840.114 [id number] Univers 18:31:00 20:23:00 Tunde MINAGERALD 350.1.13.10 i ty of [place]2.7.2.[place] [facility] [id number] [place] 416514 [place] 2021-11-04 2021-11-04 Outpatient [id number] [id number] 00:00:00 00:00:00 Visit [id number] [id number]-b -bfef-2d0 [id number] [id number] c15dac 2021-07-19 2021-07-19 Emergency X DIAMOND [facility] ERT [id number] Univers 19:48:00 22:08:00 KERWIN solano [facility] 2021-07-19 2021-07-19 Emergency Edd Abrams S [facility] 1.2.840 .114 [id number] Univers 19:48:00 22:08:00 Kerwin Collado [place] 350.1.13.10 xiomara [facility] 4.2.7.2.686 [facility] [id number] [place] [address] Branch 2021-03-03 2021-03-03 Outpatient DMG [facility] [id number] Devoted 08:00:00 08:00:00 [id number] Medica l Group Results Test Description Test Time Test Comments Results Result Comments Source COMP. METABOLIC PANEL (34112) 2021-07-20 01:42:54 Test Item Value Reference Range Interpretation Comme nts NA (test code = 1403660772) 138 mmol/L 135-145 K (test code = 9404266362) 4.1 mmol/L 3.5-5.0 CL (test code = 4769679794) 104 mmol/L 98-108 CO2 TOTAL (test code = 1069539376) 22 mmol/L 23-31 L AGAP (test code = 5709479382) 2-16 BUN (test code = 9636068515) 16 mg/dL 7-23 GLUCOSE (test code = 1903196158) 115 mg/dL 70-110 H CREATININE (test code = 0.84 mg/dL 0.60-1.25 1695758332) TOTAL BILI (test code = 0.6 mg/dL 0.1-1.7 7541355124) CALCIUM (test code = 1850479224) 8.9 mg/dL 8.6-10.6 T PROTEIN (test code = 4895968387) 6.8 g/dL 6.3-8.2 ALBUMIN (test code = 9576572400) 4.4 g/dL 3.5-5.0 ALK PHOS (test code = 8256382338) 74 U/L 34-122 ALTv (test code = 1742-6) 32 U/L 5-50 AST(SGOT) (test code = 2804495274) 32 U/L 13-40 eGFR (test code = 0718316563) mL/min/1.73m2 ANGEL (test code = ANGEL) Association [...] tests). Lab Interpretation (test code = Abnormal 82356-8) [facility] WITH [id number] 01:33:12 Test Item Value Reference Range Interpretation [...] (test code = 35.6 fL 38.5-51.6 L 91265-7) RDW-CV (test code = 11.7 % 12.1-15.4 L 788-0) PLT (test code = See_Comment [Automated 777-3) message] The sy stem which generated this result transmitted reference range : 150 - 328 10*3/ ?L. The reference r leandro was not used to interpret this result as normal/abnormal . MPV (test code = 9.2 fL 9.8-13.0 L 40096-7) NRBC/100 WBC (test See_Comment [Automat ed code = 8582429397) message] The system which generated this result transmitted reference range : 0.0 - 10.0 /100 WBCs. The refer ence range was not u sed to interpret th is result as normal/abnormal . NRBC x10^3 (test code <0.01 See_Comment [Auto mated = 0072226567) message] The s ystem which generated this result transmitted reference range : 10*3/?L. The reference range was not used to interpret this result as normal/abnormal . GRAN MAT (NEUT) % 65.8 % (test code = 770-8) IMM GRAN % (test code 0.30 % = 8785669273) LYMPH % (test code = 22.4 % 736-9) MONO % (test code = 7.1 % 5905-5) EOS % (test code = 4.0 % 713-8) BASO % (test code = 0.4 % 706-2) GRAN MAT x10^3(ANC) 5.91 10*3/uL 1.99-6.95 (test code = 5626580834) IMM GRAN x10^3 (test 0.03 10*3/uL 0.00-0.06 code = 5615057016) LYMPH x10^3 (test code 2.02 10*3/uL 1.09-3.23 = 731-0) MONO x10^3 (test code 0.64 10*3/uL 0.36-1.02 = 742-7) EOS x10^3 (test code = 0.36 10*3/uL 0.06-0.53 711-2) BASO x10^3 (test code 0.04 10*3/uL 0.01-0.09 = 704-7) Lab Interpretation Abnormal (test code = 20858-2) [facility]2020-06-24 09:24:00 Test Item [...] choles terol: <200 mg/dl Neetu rable cholesterol 20 0-239 mg/dl Borderlin e high risk cholestero l [...]
[2022-08-10 21:46] LABS: Absolute Lymphocytes (CBC) 1.5 K/uL (0.7-4.9); Hematocrit 36.8 % (39.6-49.0); Lymphocytes % 19.2 % (15.3-44.8); MCV 86.2 fL (80-100); MPV 6.9 fL (7.6-11.3); RBC Red Blood Cell Count 4.27 M/uL (4.33-5.43)
--- NOTE | 2022-08-10 21:46 | RAD REPORT ---
[facility]AM DESCRIPTION[facility] 9[facility]12 pm CLINICAL HISTORY: SOB COMPARISON: Chest Single View dated 02/12/2022; Chest Single View dated 06/30/2021 TECHNIQUE: Portable AP view of the chest. FINDINGS: The lungs are clear. No pneumothorax or effusion. The cardiomediastinal contours are unre markable. IMPRESSION: No acute cardiopulmonary process.
[2022-08-10 21:51] LABS: Specific Gravity > 1.030 (1.005-1.030); Urine Bacteria None Seen /HPF (<20); Urine Bilirubin NEGATIVE (Negative); Urine Blood Negative (Negative); Urine Clarity Clear (Clear); Urine Color Light-Yellow (Yellow); Urine Glucose 3+ (Negative); Urine Mucus Slight /HPF (None Seen); Urine Protein TRACE (Negative); Urine RBC <5 /HPF (None Seen); Urine Urobilinogen Normal (Normal); Urine pH 5.5 (5.0-7.0)
[2022-08-10 22:06] LABS: Albumin 3.8 g/dL (3.4-5.0); Bilirubin Direct 0.1 mg/dL (0-0.2); Bilirubin Indirect, Calculated 0.3 mg/dL (0.2-0.8); Bilirubin Total 0.4 mg/dL (0.2-1.0); Magnesium 2.1 mg/dL (1.6-2.4); Potassium 3.4 mEq/L (3.5-5.1); Troponin High Sensitivity 5.6 pg/mL (<58.9)
[2022-08-10] MEDS ORDERED: NA CHLORIDE 0.9% 500 ML ONE (23:07)
[2022-08-10] MEDS ORDERED: POTASSIUM 25 MEQ EFFERV TAB ONE (23:07)
--- NOTE | 2022-08-10 23:26 | ER ---
Nurse's Notes [facility] Name: Jose J Sanchez Age: 66 yrs Sex: Male : 1955 Arrival Date: 08/10/2022 Time: 20:40 Bed 6 Private MD: Diagnosis: Heat cramp, initial encounter;Dehydration;Hypokalemia Presentation: 08/10 20:48 Chief complaint: Patient states: "I think I am dehydrated. 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 Coronavirus screen: Vaccine status: Patient reports being unvaccinated. Client denies travel out of the [place] in the last 14 days. At this time, the client does not indicate any symptoms associated with coronavirus-19. Ebola Screen: Patient denies travel to an Ebola-affected area in the 21 days before illness onset. No symptoms or risks identified at this time. Initial Sepsis Screen: Does the patient meet any 2 criteria? No. Patient's initial sepsis screen is negative. Does the patient have a suspected source of infection? No. Patient's initial sepsis screen is negative. Risk Assessment: Do you want to hurt yourself or someone else? Patient reports no desire to harm self or others. Onset of symptoms was August 10, 2022. 20:48 Method Of Arrival: Ambulatory 10 20:48 Acuity: DELICIA 3 cm10 Triage Assessment: 20:50 General: Appears in no apparent distress. comfortable, Behavior is calm, cooperative. cm10 Neuro: No deficits noted. Level of Consciousness is awake, alert, Oriented to person, place, time, situation. Respiratory: No deficits noted. Airway is patent Respiratory effort is even, unlabored, Respiratory pattern is regular, symmetrical. Derm: No deficits noted. Skin is intact, Skin is pink, warm \\T\\ dry. Historical: - PMHx: 20:50 Hypercholesterolemia; cm10 - PSHx: 20:50 back surgery; facial surgery; five knee surgery; cm10 - Immunization history:: Adult Immunizations unknown. - Social history:: Smoking status: Patient denies any tobacco usage or history of. Screenin:53 Abuse screen: Denies threats or abuse. Denies injuries from another. Nutritional ha1 screening: No deficits noted. Tuberculosis screening: No symptoms or risk factors identified. 20:53 [facility] ED Fall Risk Assessment (Adult) History of falling in the last 3 months, ha1 including since admission No falls in past 3 months (0 pts) Confusion or Disorientation No (0 pts) Intoxicated or Sedated No (0 pts) Impaired Gait No (0 pts) Mobility Assist Device Used No (0 pt) Altered Elimination No (0 pt) Score/Fall Risk Level 0 - 2 = Low Risk Oriented to surroundings, Maintained a safe environment, Educated pt \\T\\ family on fall prevention, incl call for assistance when getting out of bed. Assessment: 20:53 General: Appears comfortable, Behavior is calm, cooperative. Pain: Complains of pain in ha1 cramps on legs Pain currently is 4 out of 10 on a pain scale. Neuro: Level of Consciousness is awake, alert, obeys commands, Oriented to person, place, time, situation. Cardiovascular: Patient's skin is warm and dry. Respiratory: Airway is patent Trachea midline Respiratory effort is even, unlabored, Respiratory pattern is regular, symmetrical. GI: Abdomen is flat, non-distended. : Urine is cloudy. Derm: Skin is pink, warm \\T\\ dry. Musculoskeletal: Circulation, motion, and sensation intact. Range of motion: intact in all extremities. Vital Signs: 20:48 BP 146 / 86; Pulse 87; Resp 16; Temp 98.1(O); Pulse Ox 98% on R/A; Weight 86.18 kg; cm10 Height 6 ft. 3 in. ; Pain 8/10; 21:50 BP 138 / 82; Pulse 70; Resp 17; Pulse Ox 98% on R/A; ll3 22:45 BP 150 / 85; Pulse 68; Resp 17; Pulse Ox 99% on R/A; ll3 23:39 BP 150 / 90; Pulse 71; Resp 18; Pulse Ox 98% on R/A; ll3 20:48 Body Mass Index 23.75 (86.18 kg, 190.5 cm) cm10 20:48 Pain Scale: Adult cm10 ED Course: 20:43 Patient arrived in ED. ja2 20:50 Triage completed. cm10 20:50 Arm band placed on Patient placed in an exam room, on a stretcher. cm10 20:51 Bhaskar Bonilla PA is PHCP. cp 20:51 Bhaskar Lambert MD is Attending Physician. cp 20:53 Patient has correct armband on for positive identification. Placed in gown. Bed in low ha1 position. Call light in reach. Side rails up X 1. 21:14 XRAY Chest (1 view) In Process Unspecified. EDMS 21:20 Inserted saline lock: 22 gauge in left forearm, using aseptic technique. Blood ha1 collected. 21:34 Basic Metabolic Panel Sent. ha1 21:34 CBC with Diff Sent. ha1 21:34 LFT's Sent. ha1 21:34 Magnesium Sent. ha1 21:34 NT PRO-BNP Sent. ha1 21:34 Troponin HS Sent. ha1 21:35 Urinalysis W/Microscopic Sent. ha1 21:35 CK Sent. ha1 23:41 No provider procedures requiring assistance completed. IV discontinued, intact, ll3 bleeding controlled, No redness/swelling at site. Pressure dressing applied. Administered Medications: 22:55 Drug: NS 0.9% IV 500 ml Route: IV; Rate: bolus; Site: left forearm; ha1 23:39 Follow up: Response: No adverse reaction; IV Status: Completed infusion; IV Intake: ll3 500ml 22:55 Drug: Potassium PO Effervescent Tablet 25 mEq Route: PO; ha1 23:39 Follow up: Response: No adverse reaction ll3 Medication: 23:42 VIS not applicable for this client. ll3 Intake: 23:39 IV: 500ml; Total: 500ml. ll3 Outcome: 23:26 Discharge ordered by . cp 23:41 Discharged to home ambulatory, with family. ll3 23:41 Condition: stable 23:41 Discharge instructions given to patient, family, Instructed on discharge instructions, follow up and referral plans. Demonstrated understanding of instructions, follow-up care. 23:42 Patient left the ED. ll3 Signatures: Dispatcher [employer] EDMS Bhaskar Bonilla PA PA cp Cindi Vázquez Lynsea RN RN ll3 Lary Chino RN RN ha1 Imani Nick RN RN cm10
--- NOTE | 2022-08-10 23:26 | EDPHYS ---
Physician Documentation [facility] Name: Jose J Sanchez Age: 66 yrs Sex: Male : 1955 Arrival Date: 08/10/2022 Time: 20:40 Bed 6 Private MD: ED Physician Bhaskar Lambert HPI: 08/10 21:00 This 66 yrs old Male presents to ER via Ambulatory with complaints of Dehydration. cp 21:00 Patient is a 66-year-old male who presents to the emergency department with concern for cp dehydration. Patient reports just general weakness and right hand cramping. Patient reports she works outside all day and comes to the emergency room concerned that he just feels dehydrated. Historical: - PMHx: 20:50 Hypercholesterolemia; cm10 - PSHx: 20:50 back surgery; facial surgery; five knee surgery; cm10 - Immunization history:: Adult Immunizations unknown. - Social history:: Smoking status: Patient denies any tobacco usage or history of. ROS: 21:05 Constitutional: Negative for body aches, chills, fever, poor PO intake. cp 21:05 Eyes: Negative for injury, pain, redness, and discharge. cp 21:05 ENT: Negative for drainage from ear(s), ear pain, sore throat, difficulty swallowing, difficulty handling secretions. 21:05 Cardiovascular: Negative for chest pain, palpitations. 21:05 Respiratory: Negative for cough, shortness of breath, wheezing. 21:05 Abdomen/GI: Negative for abdominal pain, vomiting, diarrhea, constipation. 21:05 Neuro: Negative for altered mental status, dizziness, headache, syncope, weakness. 21:05 All other systems are negative. Exam: 21:10 Constitutional: The patient appears in no acute distress, alert, awake, cp non-diaphoretic, non-toxic, well developed, well nourished. 21:10 Head/Face: Normocephalic, atraumatic. cp 21:10 Eyes: Periorbital structures: appear normal, Conjunctiva: normal, no exudate, no injection, Sclera: no appreciated abnormality, Lids and lashes: appear normal, bilaterally. 21:10 ENT: External ear(s): are unremarkable, Nose: is normal, Mouth: Lips: moist, Oral mucosa: pink and intact, moist, Posterior pharynx: is normal, airway is patent, no erythema, no exudate. 21:10 Chest/axilla: Inspection: normal. 21:10 Cardiovascular: Rate: normal, Rhythm: regular, Edema: is not appreciated, JVD: is not appreciated. 21:10 Respiratory: the patient does not display signs of respiratory distress, Respirations: normal, no use of accessory muscles, no retractions, labored breathing, is not present, Breath sounds: are clear throughout, no decreased breath sounds, no stridor, no wheezing. 21:10 Abdomen/GI: Inspection: abdomen appears normal, Palpation: abdomen is soft and non-tender, in all quadrants. 21:10 Neuro: Orientation: to person, place \T\ time. Mentation: is normal, Motor: moves all fours, strength is normal, Sensation: is normal, Gait: is steady. Vital Signs: 20:48 BP 146 / 86; Pulse 87; Resp 16; Temp 98.1(O); Pulse Ox 98% on R/A; Weight 86.18 kg; cm10 Height 6 ft. 3 in. ; Pain 8/10; 21:50 BP 138 / 82; Pulse 70; Resp 17; Pulse Ox 98% on R/A; ll3 22:45 BP 150 / 85; Pulse 68; Resp 17; Pulse Ox 99% on R/A; ll3 23:39 BP 150 / 90; Pulse 71; Resp 18; Pulse Ox 98% on R/A; ll3 20:48 Body Mass Index 23.75 (86.18 kg, 190.5 cm) cm10 20:48 Pain Scale: Adult cm10 MDM: 20:53 Patient medically screened. cp 23:25 Data reviewed: vital signs, nurses notes, lab test result(s), EKG, radiologic studies, cp plain films. 23:25 Differential diagnosis: UTI, dehydration, electrolyte abnormality, cardiac arrythmia, cp rhabdo. I considered the following discharge prescriptions or medication management in the emergency department Medications were administered in the Emergency Department. See MAR. Counseling: I had a detailed discussion with the patient and/or guardian regarding: the historical points, exam findings, and any diagnostic results supporting the discharge/admit diagnosis, lab results, radiology results, to return to the emergency department if symptoms worsen or persist or if there are any questions or concerns that arise at home. Response to treatment: the patient's symptoms have markedly improved after treatment, and as a result, I will discharge patient. 08/10 20:56 Order name: Basic Metabolic Panel; Complete Time: 22:48 cp 08/10 22:48 Interpretation: Normal except: K 3.4; GLUC 132; BUN 20. cp 08/10 20:56 Order name: CBC with Diff; Complete Time: 22:48 cp 08/10 22:48 Interpretation: Normal except: RBC 4.27; HGB 12.7; HCT 36.8; MPV 6.9. cp 08/10 20:56 Order name: LFT's; Complete Time: 22:48 cp 08/10 20:56 Order name: Magnesium; Complete Time: 22:48 cp 08/10 20:56 Order name: NT PRO-BNP; Complete Time: 22:48 cp 08/10 20:56 Order name: Troponin HS; Complete Time: 22:48 cp 08/10 20:56 Order name: CK; Complete Time: 22:48 cp 08/10 20:56 Order name: Urinalysis W/Microscopic; Complete Time: 22:48 cp 08/10 22:49 Interpretation: Normal except: Urine SG > 1.030; UGLUC 3+; UPROT TRACE. cp 08/10 20:56 Order name: XRAY Chest (1 view); Complete Time: 22:48 cp 08/10 20:56 Order name: EKG; Complete Time: 20:57 cp 08/10 20:56 Order name: Cardiac monitoring; Complete Time: 21:08 cp 08/10 20:56 Order name: EKG - Nurse/Tech; Complete Time: 21:08 cp 08/10 20:56 Order name: IV Saline Lock; Complete Time: 21:34 cp 08/10 20:56 Order name: Labs collected and sent; Complete Time: 21:34 cp 08/10 20:56 Order name: O2 Per Protocol; Complete Time: 21:08 cp 08/10 20:56 Order name: O2 Sat Monitoring; Complete Time: 21:08 cp Administered Medications: 22:55 Drug: NS 0.9% IV 500 ml Route: IV; Rate: bolus; Site: left forearm; ha1 23:39 Follow up: Response: No adverse reaction; IV Status: Completed infusion; IV Intake: ll3 500ml 22:55 Drug: Potassium PO Effervescent Tablet 25 mEq Route: PO; ha1 23:39 Follow up: Response: No adverse reaction ll3 Disposition Summary: 08/10/22 23:26 Discharge Ordered Location: Home cp Problem: new cp Symptoms: have improved cp Condition: Stable cp Diagnosis - Heat cramp, initial encounter cp - Dehydration cp - Hypokalemia cp Followup: cp - With: Private Physician - When: 1 - 2 days - Reason: Worsening of condition Discharge Instructions: - Discharge Summary Sheet cp - Dehydration, Adult cp - Potassium Content of Foods cp - Muscle Cramps and Spasms cp - Hypokalemia cp Forms: - Medication Reconciliation Form cp - Thank You Letter cp - Antibiotic Education cp - Prescription Opioid Use cp - [email or web address] cp - Work release form ll3 Signatures: Dispatcher [employer] EDMS Bhaskar Bonilla PA PA cp Ayala, Heidy RN RN ha1 Imani Nick RN RN cm10 Zuhair Linton RN ll3
[2022-08-10 23:55] VITALS: TEMP 98.1
[2022-08-11 00:30] VITALS: BP 150/90; O2SAT 98
--- NOTE | 2022-08-11 18:10 | EKG ---
Test Date: 2022-08-10 Test Time: 21:02:25 Appliance Line Assembler: CARLOS ALBERTO MEASUREMENT RESULTS: Intervals: Rate: 73 MN: 172 QRSD: 76 QT: 400 QTc: 440 [place]: P: 66 MN: 172 QRS: 56 T: 80 INTERPRETIVE STATEMENTS: Normal sinus rhythm Nonspecific T wave abnormality Abnormal ECG Compared to ECG 02/12/2022 13:41:46 Left ventricular hypertrophy no longer present T-wave abnormality still present Electronically Signed On 08-11-22 18:08:38 CDT by Isaac Adames
== END 2022-08-10 23:42 | disposition home or self-care (01) ==
LOC: ER 20:40
DX: T67.2XXA Heat cramp, initial encounter (principal); E86.0 Dehydration; E87.6 Hypokalemia; E78.00 Pure hypercholesterolemia, unspecified
CPT/HCPCS: 85025; 81001; 80048; 36415; 83735; 82550; 80076; 84484; 83880; 71045; J7040; 93005

== ENCOUNTER 2022-10-10 20:06 | Emergency (ER) | payer OTHER ==
--- OUTSIDE RECORDS SUMMARY | 2022-10-10 20:09 | XMS REPORT | Continuity of Care Document ---
:1955 Author Organization [facility] t Address [address] [place] [address] [address] [place] [address] Care Team Providers Name Role Phone Bonny Baker Primary Care Physician [phone] Maurizio Wong Attending Clinician Unavailable Anna Siu MD Attending Clinician ANNA SIU Attending Clinician Unavailable Doctor Unassigned, [place] Attending Clinician Unavailable TUNDE ALVARADO Attending Clinician Unavailable Tunde Brown Attending Clinician KERWIN COLLADO Attending Clinician Unavailable Edd Abrams MD Attending Clinician Kerwin Collado APN Attending Clinician Maurizio Wong Admitting Clinician Unavailable TUNDE ALVARADO Admitting Clinician Unavailable KERWIN COLLADO Admitting Clinician Unavailable Payers Payer Name Policy Type Policy Number Effective Date Expiration Date Leticia gorman [employer] [id number] 2021 (MEDICARE 00:00:00 REPLACEMENT HMO) Problems Condition Condition Condition Status Onset Resolution Last Treating Co mments Source Name Details Category Date Date Treatment Clinician Date No known No known Disease Unive rs active active ity of problems problems [facility] Allergies, Adverse Reactions, Alerts Allergy Allergy Status Severity Reaction(s) Onset Inactive Treating Comm ents Source Name Type Date Date Clinician No Known DA Active U [facility] Allergie 5-11 Corpus s 00:00: Shanon [facility] [place] No Known DA Active U [facility] Allergie 5-11 Corpus s 00:00: Shanon [facility] [place] NO KNOWN Drug Active Univers ALLERGIE Class ity of S [facility] Social History Social Habit Start Date Stop Date Quantity Comments Source Exposure to 2022-01-08 2022-01-[address] [facility]-CoV-2 00:00:00 13:19:00 [facility] (event) [place] Tobacco use and 2022-01-18 2022-01-18 Smokeless tobacco Un iversity of exposure 00:00:00 00:00:00 non-user [facility] Alcohol intake 2022-01-18 2022-01-18 Lifetime University of 00:00:00 00:00:00 non-drinker [facility] (finding) [place] Sex Ass[birth year] Universit y of 00:00:00 00:00:00 [facility] Smoking Status Start Date Stop Date Source Tobacco smoking consumption Univ ersity of [facility] unknown Branch Never smoked tobacco [facility] Medications Ordered Filled Start Stop Current Ordering Indication Dosage Frequency Signature Comments Components Source Medication Medication Date Date Medication? Clinician (SIG) Name Name DICLOFENAC Yes [id number] TAKE 1 Univers 75 mg EC 2-15 TABLET BY ity of tablet 00:00: MOUTH IN [place] 00 THE Medical MORNING Branch AND IN THE EVENING WITH MEALS diclofenac 2021-02 Yes 75mg Take 1 Unive rs 75 mg EC 2-06 tablet by ity of tablet 00:00: mouth in [place] 00 the Medical morning Branch and 1 tablet in the evening. Take with meals. diclofenac 2021-02 No 75mg Take 1 Univ ers 75 mg EC 2-06 02-15 tablet by ity o f tablet 00:00: 00:00 mouth in [place] 00 :00 the Medical morning Branch and 1 tablet in the evening. Take with meals. methylPREDN 2021-02 Yes [id number] 84mg Take 21 Univers ISolone 2-05 tablets by ity of (MEDROL, 00:00: mouth [place] CHAZ,) 4 mg 00 SEE-INSTRU Med ical tablets CTIONS. Branch follow package directions methylPREDN 2021-02 Yes [id number] 84mg Take 21 Univers ISolone 2-05 tablets by ity of (MEDROL, 00:00: mouth [place] CHAZ,) 4 mg 00 SEE-INSTRU Med ical tablets CTIONS. Branch follow package directions methylPREDN 2021-02 Yes [id number] 84mg Take 21 Univers ISolone 2-05 tablets by ity of (MEDROL, 00:00: mouth [place] CHAZ,) 4 mg 00 SEE-INSTRU Med ical tablets CTIONS. Branch follow package directions methylPREDN 2021-02 Yes [id number] 84mg Take 21 Univers ISolone 2-05 tablets [...] 11/15/21 at 1930, DANNA methylPREDN 2021-02 Yes [id number] Take by Univers ISolone 4 0-02 [id number] mouth ity of mg tablets 00:00: [place]-INSTRU [place] 00 CTIONS. Medical follow Branch package directions methocarbam 2021-02 Yes [id number] 750mg Take 1 Univers oL 750 mg 0-02 [id number] tablet by ity of tablet 00:00: mouth 4 [place] 00 (four) Medical times Branch daily as needed for Pain (scale 4-6). methylPREDN 2021-02 Yes [id number] Take by Univers ISolone 4 0-02 [id number] mouth ity of mg tablets 00:00: SEE-INSTRU [place] 00 CTIONS. Medical follow Branch package directions methocarbam 2021-02 Yes [id number] 750mg Take 1 Univers oL 750 mg 0-02 [id number] tablet by ity of tablet 00:00: mouth 4 [place] 00 (four) Medical times Branch daily as needed for Pain (scale 4-6). methylPREDN 2021-02 Yes [id number] Take by Univers ISolone 4 0-02 058943 mouth ity of mg tablets 00:00: SEE-INSTRU [place] 00 CTIONS. Medical follow Branch package directions methocarbam 2021-02 Yes [id number] 750mg Take 1 Univers oL 750 mg 0-02 000577 tablet by ity of tablet 00:00: mouth 4 (four) Medical times Branch daily as needed for Pain (scale 4-6). methylPREDN 2021-02 Yes [id number] Take by Univers ISolone 4 0-02 848323 mouth ity of mg tablets 00:00: SEE-INSTRU [place] CTIONS. Medical follow Branch package directions methocarbam 2021-02 Yes [id number] 750mg Take 1 Univers oL 750 mg 0-02 [id number] tablet by ity of tablet 00:00: mouth 4 (four) Medical times Branch daily as needed for Pain (scale 4-6). methylPREDN 2021-02 Yes [id number] Take by Univers ISolone 4 0-02 [id number] mouth ity of mg tablets 00:00: SEE-INSTRU [place] CTIONS. Medical follow Branch package directions methocarbam 2021-02 Yes [id number] 750mg Take 1 Univers oL 750 mg 0-02 [id number] tablet by ity of tablet 00:00: mouth (four) Medical times Branch daily as needed for Pain (scale 4-6). methylPREDN 2021-02 Yes [id number] Take by Univers ISolone 4 0-02 201477 mouth ity of mg tablets 00:00: SEE-INSTRU [place] CTIONS. Medical follow Branch package directions methocarbam 2021-02 Yes [id number] 750mg Take 1 Univers oL 750 mg 0-02 616250 tablet by ity of tablet 00:00: mouth 4 (four) Medical times Branch daily as needed for Pain (scale 4-6). methylPREDN 2021-02 Yes [id number] Take by Univers ISolone 4 0-02 177782 mouth ity of mg tablets 00:00: SEE-INSTRU [place] CTIONS. Medical follow Branch package directions methocarbam 2021-02 Yes [id number] 750mg Take 1 Univers oL 750 mg 0-02 998788 tablet by ity of tablet 00:00: mouth 4 (four) Medical times Branch daily as needed for Pain (scale 4-6). methylPREDN 2021-02 Yes [id number] Take by Univers ISolone 4 0-02 592144 mouth ity of mg tablets 00:00: SEE-INSTRU [place] 00 CTIONS. Medical follow Branch package directions methocarbam 2021-02 Yes [id number] 750mg Take 1 Univers oL 750 mg 0-02 437183 tablet by ity of tablet 00:00: mouth 4 (four) Medical times Branch daily as needed for Pain (scale 4-6). methylPREDN 2021-02 Yes [id number] Take by Univers ISolone 4 0-02 401109 mouth ity of mg tablets 00:00: SEE-INSTRU [place] 00 CTIONS. Medical follow Branch package directions methocarbam 2021-02 Yes [id number] 750mg Take 1 Univers oL 750 mg 0-02 958655 tablet by ity of tablet 00:00: mouth 4 [place] (four) Medical times Branch daily as needed for Pain (scale 4-6). methylPREDN 2021-02 Yes [id number] Take by Univers ISolone 4 0-02 884610 mouth ity of mg tablets 00:00: SEE-INSTRU [place] 00 CTIONS. Medical follow Branch package directions methocarbam 2021-02 Yes [id number] 750mg Take 1 Univers oL 750 mg 0-02 [id number] tablet by ity of tablet 00:00: mouth 4 (four) Medical times Branch daily as needed for Pain (scale 4-6). naproxen 2021-02- No [id number] 375mg Take 1 Univers (EC-NAPROXE 0-02 10-13 358638 tablet by ity of N) 375 mg [...] blood 2021-11-15 23:30:00 134 mm[Hg] Univer sity [facility] Diastolic blood 2021-11-15 23:30:00 76 mm[Hg] Unive [facility] Heart rate 2021-11-15 23:30:00 82 /min [facility] Body temperature 2021-11-15 23:30:00 37.17 [place] [facility] Respiratory rate 2021-11-15 23:30:00 18 /min [facility] Body weight 2021-11-15 23:30:00 93.441 kg [facility] BMI 2021-11-15 23:30:00 25.75 kg/m2 Universi ty [facility] Medical [place] Oxygen saturation in 2021-11-15 23:30:00 99 /min University of Arterial blood by [place] [facility] soledad Pulse oximetry Branch Systolic blood 2021-07-20 03:06:00 150 mm[Hg] Univer sity of pressure [facility] Diastolic blood 2021-07-20 03:06:00 93 mm[Hg] Unive rsity of pressure [facility] Heart rate 2021-07-20 03:06:00 69 /min Universi ty of [place] Medical Branch Respiratory rate 2021-07-20 03:06:00 18 /min Univ ersity of [facility] Oxygen saturation in 2021-07-20 03:06:00 99 /min University of Arterial blood by [facility] Pulse oximetry Branch Body temperature 2021-07-20 00:43:00 37.28 [place] Univ ersity of [facility] Body height 2021-07-20 00:43:00 190.5 cm Universi ty [facility] Body weight 2021-07-20 00:43:00 [facility] BMI 2021-07-20 00:43:00 25.75 kg/m2 [facility] BP Systolic 2021-12-17 14:57:00 137 mm[Hg] BP [...] Branch REFERRAL- 2022-01-04 06:01:00 [facility]RESPONSE Name Medical Branch REFERRAL- 2021-12-17 05:01:00 [facility]RESPONSE Name [facility] XR KNEE 3 VW LEFT 2021-11-16 00:07:28 Tunde Alvarado [facility] XR TIBIA FIBULA 2 VW 2021-11-16 00:07:28 Tunde Alvarado [facility] CONSENT/REFUSAL FOR 2021-11-15 23:27:22 Doctor Unassigned, No [facility] DIAGNOSIS AND Name Medical Branch TREATMENT CT ABDOMEN PELVIS WO 2021-07-20 01:35:00 Ker[facility] Collado [facility] CONTRAST [facility] COMP. METABOLIC PANEL 2021-07-20 01:18:00 Kerwin Collado [facility] ([id number]) Medical [place] CBC WITH DIFF 2021-07-20 01:18:00 Kerwin Collado [facility] URINALYSIS 2021-07-20 01:18:00 Kerwin Collado [facility] NOTICE OF PRIVACY 2021-07-20 00:32:07 Doctor Unassigned, No [facility] PRACTICES Name [facility] Plan of Care Planned Activity Planned Date Details Comments Source Goal Plan of Care Note [code = 29306-6] Goal Plan of Care Note [code = 05154-8] Goal Plan of Care Note [code = 12975-5] Goal Plan of Care Note [code = 04478-8] Goal Plan of Care Note [code = 74294-5] Encounters Start End Encounter Admission Attending Care Care Encounter Source Date/Time Date/Time Type Type Clinicians Facility Department ID 2020-06-24 Inpatient [id number] 01:23:38 Maurizio Guerrero [facility] 2022-03-272022-03-27 [facility] [id number] Univers 00:00:00 00:00:00 Anna MIX 350.1.13.10 it y of [place] 4.2.7.2.686 Diony as MARLENE?BLEA [id number] Sc calvin [facility] 044 [facility] OFFICE [facility] 2022-02-18 2022-02-18 [facility] [id number] Univers 09:00:00 09:00:00 ANNA [facility] 2022-01-18 2022-01-18 Office [facility] [id number] Univers 14:15:00 14:15:00 Visit Anna MIX 350.1.13.10 it y [facility] 4.2.7.2.686 Diony as MARLENE?BLEA [id number] [facility] 198 [facility] OFFICE [facility] 2022-01-18 2022-01-18 [facility] RAD [id number] Univers 14:15:00 14:01:16 ANNA solano [facility] 2022-01-18 2022-01-[address] [facility] [id number] Univers 00:00:00 00:00:00 Anna MIX 350.1.13.10 it y [facility] 4.2.7.2.686 Diony as MARLENE?BLEA [id number] [address] OFFICE [facility] 2022-01-18 2022-01-18 Orders Doctor STEVEN 1.2.840.114 [id number] Univers 00:00:00 00:00:00 Only Unassigned, AKIN 350.1.13.10 ity of [place] [facility] 4.2.7.2.686 Diony as [id number] [address] 2022-01-04 2022-01-04 Orders Doctor MAURIZIO 1.2.840.114 [id number] Univers 00:00:00 00:00:00 Only Unassigned, AKIN 350.1.13.10 ity of [place] [facility] 4.2.7.2.686 Diony as [id number] [address] 2021-12-17 2021-12-17 Outpatient KATIE WILSON [id number]- Prakash 14:52:52 14:52:52 [id number] F Champ 2021-12-17 2021-12-17 Outpatient [id number] 00:00:00 00:00:00 Visit [id number] [id number]-[id number] -[id number] [id number] 2021-12-17 2021-12-17 Orders Doctor MAURIZIO 1.2.840.114 [id number] Univers 00:00:00 00:00:00 Only Unassigned, AKIN 350.1.13.10 ity of [place] [facility] 4.2.7.2.686 Diony as [id number] [address] 2021-12-16 2021-12-[address] [facility] 1.2.840.114 [id number] Univers 00:00:00 00:00:00 Anna [facility] 350.1.13.10 it y of [place] 4.2.7.2.686 Diony as MARLENE?BLEA [id number] Sc dic[address] OFFICE BUILDING 2021-12-02 2021-12-[address] [facility] 1.2.840.114 [id number] Univers 00:00:00 00:00:00 Anna [facility] 350.1.13.10 i ty of [place] 4[place]2.7.2.[place] [facility] [id number] Sc dic[address] 2021-11-15 2021-11-15 Emergency X [email or web address] ERT [id number] Univers 18:31:00 20:23:00 TUNDE ity of [facility] 2021-11-15 2021-11-15 Emergency [facility] 1.2.840.114 [id number] Univers 18:31:00 20:23:00 Tunde MINAGERALD 350.1.13.10 i ty of [place].2.7.2.686 [place] [id number] [place] [id number] [place] 2021-11-04 2021-11-04 Outpatient [id number] [id number] 00:00:00 00:00:00 Visit cce4-443d ce4-443d-b -bfef-2d0 fef-2d0e6d [id number] c15dac 2021-07-19 2021-07-19 Emergency X [facility]OND [facility] [[email or web address] ERT [id number] Univers 19:48:00 22:08:00 KERWIN solano [facility] 2021-07-19 2021-07-19 Emergency Edd Abrams S [facility] [[email or web address]] 1.2.840 .114 [id number] Univers 19:48:00 22:08:00 Kerwin Collado [place] [address].1.13.[address] [facility] 4.2.7.2.686 [facility] [id number] [place] [address] Branch 2021-03-03 2021-03-03 Outpatient [facility] [id number] Devoted 08:00:00 08:00:00 [id number] Medica l Group Results Test Description Test Time Test Comments Results Result Comments Source COMP. METABOLIC PANEL (54064) 2021-07-20 01:42:54 Test Item Value Reference Range Interpretation Comme nts NA (test code = 6884125488) 138 mmol/L 135-145 K (test code = 8414155612) 4.1 mmol/L 3.5-5.0 CL (test code = 2956590043) 104 mmol/L 98-108 CO2 TOTAL (test code = 4692602578) 22 mmol/L 23-31 L AGAP (test code = 2787427366) 2-16 BUN (test code = 5216982860) 16 mg/dL 7-23 GLUCOSE (test code = 9366856574) 115 mg/dL 70-110 H CREATININE (test code = 0.84 mg/dL 0.60-1.25 6359140342) TOTAL BILI (test code = 0.6 mg/dL 0.1-1.7 1752496118) CALCIUM (test code = 3951625934) 8.9 mg/dL 8.6-10.6 T PROTEIN (test code = 7312915361) 6.8 g/dL 6.3-8.2 ALBUMIN (test code = 9693730218) 4.4 g/dL 3.5-5.0 ALK PHOS (test code = 1769990557) 74 U/L 34-122 ALTv (test code = 1742-6) 32 U/L 5-50 AST(SGOT) (test code = 7731511378) 32 U/L 13-40 eGFR (test code = 0618280149) mL/min/1.73m2 ANGEL (test code = ANGEL) Association [...] tests). Lab Interpretation (test code = Abnormal 64314-7) [facility] WITH [id number] 01:33:12 Test Item Value Reference Range Interpretation [...] (test code = 35.6 fL 38.5-51.6 L 76449-1) RDW-CV (test code = 11.7 % 12.1-15.4 L 788-0) PLT (test code = See_Comment [Automated 777-3) message] The sy stem which generated this result transmitted reference range : 150 - 328 10*3/ ?L. The reference r leandro was not used to interpret this result as normal/abnormal . MPV (test code = 9.2 fL 9.8-13.0 L 62975-6) NRBC/100 WBC (test See_Comment [Automat ed code = 1132154120) message] The system which generated this result transmitted reference range : 0.0 - 10.0 /100 WBCs. The refer ence range was not u sed to interpret th is result as normal/abnormal . NRBC x10^3 (test code <0.01 See_Comment [Auto mated = 5564083269) message] The s ystem which generated this result transmitted reference range : 10*3/?L. The reference range was not used to interpret this result as normal/abnormal . GRAN MAT (NEUT) % 65.8 % (test code = 770-8) IMM GRAN % (test code 0.30 % = 6052443100) LYMPH % (test code = 22.4 % 736-9) MONO % (test code = 7.1 % 5905-5) EOS % (test code = 4.0 % 713-8) BASO % (test code = 0.4 % 706-2) GRAN MAT x10^3(ANC) 5.91 10*3/uL 1.99-6.95 (test code = 0212260755) IMM GRAN x10^3 (test 0.03 10*3/uL 0.00-0.06 code = 9207723352) LYMPH x10^3 (test code 2.02 10*3/uL 1.09-3.23 = 731-0) MONO x10^3 (test code 0.64 10*3/uL 0.36-1.02 = 742-7) EOS x10^3 (test code = 0.36 10*3/uL 0.06-0.53 711-2) BASO x10^3 (test code 0.04 10*3/uL 0.01-0.09 = 704-7) Lab Interpretation Abnormal (test code = 09802-6) [facility]2020-06-24 09:24:00 Test Item Value Reference [...]
[2022-10-10 20:40] LABS: Absolute Lymphocytes (CBC) 1.5 K/uL (0.7-4.9); Lymphocytes % 23.1 % (15.3-44.8); MCV 85.9 fL (80-100); MPV 7.1 fL (7.6-11.3); Platelets 202 thou/uL (152-406); RBC Red Blood Cell Count 4.31 M/uL (4.33-5.43)
[2022-10-10 21:02] LABS: Potassium 3.5 mEq/L (3.5-5.1); Troponin High Sensitivity 7.9 pg/mL (<58.9)
--- NOTE | 2022-10-10 21:11 | ER ---
Nurse's Notes [facility] Name: Jose J Sanchez Age: 66 yrs Sex: Male : 1955 Arrival Date: 10/10/2022 Time: 20:06 Bed 3 Private MD: Diagnosis: Chest pain, unspecified;Anemia, unspecified;Essential (primary) hypertension Presentation: 10/10 20:16 Chief complaint: Patient states: intermittent chest pain radiating to right shoulder X2 lg3 months. worsened today. CP 6/10 shoulder pain 8/10. 324 ASA administered [employer]. Coronavirus screen: Client denies travel out of the [place] in the last 14 days. At this time, the client does not indicate any symptoms associated with coronavirus-19. Ebola Screen: No symptoms or risks identified at this time. Initial Sepsis Screen: Does the patient meet any 2 criteria? No. Patient's initial sepsis screen is negative. Does the patient have a suspected source of infection? No. Patient's initial sepsis screen is negative. Risk Assessment: Do you want to hurt yourself or someone else? Patient reports no desire to harm self or others. Onset of symptoms is unknown. 20:16 Method Of Arrival: EMS: [facility] lg3 20:16 Acuity: DELICIA 3 lg3 Triage Assessment: 20:18 General: Appears in no apparent distress. comfortable, Behavior is calm, cooperative. lg3 Pain: Complains of pain in chest Pain radiates to right shoulder. EENT: No deficits noted. No signs and/or symptoms were reported regarding the EENT system. Neuro: No deficits noted. Sheldon Agitation-Sedation Scale (RASS): 0 - Alert and Calm Level of Consciousness is awake, alert, obeys commands, Oriented to person, place, time, situation. Cardiovascular: No deficits noted. Reports chest pain, Capillary refill < 3 seconds Clubbing of nail beds is absent JVD is absent Patient's skin is warm and dry. Rhythm is sinus rhythm. Respiratory: No deficits noted. Airway is patent Respiratory effort is even, unlabored, Respiratory pattern is regular, symmetrical. GI: No deficits noted. No signs and/or symptoms were reported involving the gastrointestinal system. Abdomen is flat, non-distended. : No deficits noted. No signs and/or symptoms were reported regarding the genitourinary system. Derm: No deficits noted. No signs and/or symptoms reported regarding the dermatologic system. Skin is intact, is healthy with good turgor, Skin is dry, Skin is normal, Skin temperature is warm. Musculoskeletal: No deficits noted. No signs and/or symptoms reported regarding the musculoskeletal system. Circulation, motion, and sensation intact. Range of motion: intact in all extremities. Historical: - Allergies: 20:18 No Known Allergies; lg3 - Home Meds: 20:18 trazodone 50 mg Oral tab 1 tab once daily [Active]; lg3 - PMHx: 20:18 Hypercholesterolemia; HTN; lg3 - PSHx: 20:18 back surgery; facial surgery; five knee surgery; lg3 - Immunization history:: Adult Immunizations up to date, Client reports having NOT received the Covid vaccine. Flu vaccine is not up to date. - Social history:: Smoking status: Patient denies any tobacco usage or history of. Patient/guardian denies using alcohol, but has a distant history of alcohol abuse, street drugs. Screenin:21 [facility] ED Fall Risk Assessment (Adult) History of falling in the last 3 months, lg3 including since admission No falls in past 3 months (0 pts). Abuse screen: Denies threats or abuse. Denies injuries from another. Nutritional screening: No deficits noted. Tuberculosis screening: No symptoms or risk factors identified. Assessment: 20:21 General: see triage assessment . lg3 Vital Signs: 20:16 BP 153 / 79; Pulse 71; Resp 16 S; Temp 99.5(O); Pulse Ox 99% on R/A; Weight 81.65 kg lg3 (R); Height 6 ft. 3 in. (R); 21:10 BP 144 / 84; Pulse 59; Resp 17 S; Pulse Ox 100% on R/A; lg3 21:45 BP 144 / 78; Pulse 56; Resp 14 S; Pulse Ox 100% on R/A; as6 20:16 Body Mass Index 22.50 (81.65 kg, 190.5 cm) lg3 ED Course: 20:15 Patient arrived in ED. lg3 20:15 Annamraie Russell, RN is Primary Nurse. lg3 20:18 Triage completed. lg3 20:18 Arm band placed on right wrist. lg3 20:21 Fernandez, Johnie, DO is Attending Physician. ms3 20:21 Patient has correct armband on for positive identification. Placed in gown. Bed in low lg3 position. Call light in reach. Side rails up X 1. Client placed on continuous cardiac and pulse oximetry monitoring. NIBP monitoring applied. monitoring tech on. Door closed. Noise minimized. Warm blanket given. 20:21 Inserted saline lock: 20 gauge in right forearm, using aseptic technique. Blood lg3 collected. Patient maintains SpO2 saturation greater than 95% on room air. 21:10 Isaac Adames MD is Referral Physician. ms3 21:21 XRAY Chest (1 view) In Process Unspecified. EDMS 21:33 Isaac Adames MD is Referral Physician. ms3 21:44 Provided Education on: discharge teaching. as6 21:44 No provider procedures requiring assistance completed. IV discontinued, intact, as6 bleeding controlled, No redness/swelling at site. Pressure dressing applied. Administered Medications: No medications were administered Medication: 21:44 VIS not applicable for this client. as6 Outcome: 21:10 Discharge ordered by . ms3 21:33 Discharge ordered by MD. ms3 21:45 Discharged to home ambulatory. as6 21:45 Condition: stable 21:45 Discharge instructions given to patient, Instructed on discharge instructions, follow up and referral plans. Demonstrated understanding of instructions, follow-up care. 21:45 Patient left the ED. as6 Signatures: Dispatcher [employer] Annamarie Langston, RN RN lg3 Johnie Fernandez DO DO ms3 Talib Lipscomb, RN RN as6
--- NOTE | 2022-10-10 21:32 | RAD REPORT ---
EXAM DESCRIPTION: RADChest Single View10/10/2022 9:20 pm CLINICAL HISTORY: CHEST PAIN COMPARISON: Chest Single View dated 09/04/2022; Chest Single View dated 08/10/2022; Chest Single View dated 02/12/2022; Chest Single View dated 06/30/2021 TECHNIQUE: Portable AP view of the chest. FINDINGS: The lungs are clear. No pneumothorax or effusion. The cardiomediastinal contours are unre markable. IMPRESSION: No acute cardiopulmonary process.
--- NOTE | 2022-10-10 21:34 | EDPHYS ---
Physician Documentation [facility] Name: Jose J Sanchez Age: 66 yrs Sex: Male : 1955 Arrival Date: 10/10/2022 Time: 20:06 Bed 3 Private MD: ED Physician Johnie Fernandez HPI: 10/10 21:33 This 66 yrs old Male presents to ER via EMS with complaints of chest pain. ms3 21:33 66-year-old male with past medical history of back pain, hyperlipidemia, hypertension ms3 presents for chest pain that is been ongoing for months and became worse today. Patient was given 324 mg aspirin by [facility]. Patient states the pain is left-sided and radiates to the right side of his chest. Patient rates the pain a 5/10. Patient denies alleviating or inciting factors. Patient denies nausea, vomiting, diaphoresis. Historical: - Allergies: 20:18 No Known Allergies; lg3 - Home Meds: 20:18 trazodone 50 mg Oral tab 1 tab once daily [Active]; lg3 - PMHx: 20:18 Hypercholesterolemia; HTN; lg3 - PSHx: 20:18 back surgery; facial surgery; five knee surgery; lg3 - Immunization history:: Adult Immunizations up to date, Client reports having NOT received the Covid vaccine. Flu vaccine is not up to date. - Social history:: Smoking status: Patient denies any tobacco usage or history of. Patient/guardian denies using alcohol, but has a distant history of alcohol abuse, street drugs. ROS: 21:33 Constitutional: Negative for fever, and chills. Neck: Negative for injury, pain, and ms3 swelling, Respiratory: Negative for shortness of breath, cough, wheezing, and pleuritic chest pain, Abdomen/GI: Negative for abdominal pain, nausea, vomiting, diarrhea, and constipation. 21:33 MS/Extremity: Negative for injury and deformity, Skin: Negative for injury, rash, and discoloration. 21:33 Cardiovascular: Positive for chest pain. 21:33 All other systems are negative. Exam: 21:33 Constitutional: This is a well developed, well nourished patient who is awake, alert, ms3 and in no acute distress. Head/Face: Normocephalic, atraumatic. Neck: Trachea midline, no cervical lymphadenopathy. Supple, full range of motion without nuchal rigidity, or vertebral point tenderness. No Meningismus. Chest/axilla: Normal chest wall appearance and motion. Nontender with no deformity. Cardiovascular: Regular rate and rhythm with a normal S1 and S2. No gallops, murmurs, or rubs. Normal PMI, no JVD. No pulse deficits. Respiratory: Lungs have equal breath sounds bilaterally, clear to auscultation and percussion. No rales, rhonchi or wheezes noted. No increased work of breathing, no retractions or nasal flaring. Abdomen/GI: Soft, non-tender, with normal bowel sounds. No distension or tympany. No guarding or rebound. No evidence of tenderness throughout. Skin: Warm, dry with normal turgor. Normal color with no rashes, no lesions, and no evidence of cellulitis. MS/ Extremity: Pulses equal, no cyanosis. Neurovascular intact. Full, normal range of motion. 23:15 ECG was reviewed by the Attending Physician. ms3 Vital Signs: 20:16 BP 153 / 79; Pulse 71; Resp 16 S; Temp 99.5(O); Pulse Ox 99% on R/A; Weight 81.65 kg lg3 (R); Height 6 ft. 3 in. (R); 21:10 BP 144 / 84; Pulse 59; Resp 17 S; Pulse Ox 100% on R/A; lg3 21:45 BP 144 / 78; Pulse 56; Resp 14 S; Pulse Ox 100% on R/A; as6 20:16 Body Mass Index 22.50 (81.65 kg, 190.5 cm) lg3 MDM: 20:55 Patient medically screened. ms3 21:11 Differential diagnosis: abnormal EKG, acute myocardial infarction, coronary artery ms3 disease pneumonia, pneumothorax. HEART Score: History: Slightly Suspicious (0), ECG: Normal (0), Age: > or = 65 years (2), Risk Factors: 1 or 2 risk factors (1), Troponin: < or = 1 x Normal Limit (0), Total Score = 3. The patient was not given aspirin in the Emergency Department. Administered by EMS. Data reviewed: vital signs, nurses notes, EKG, and as a result, I will discharge patient. Historians other than the Patient: EMS: . Care significantly affected by the following chronic conditions: Hypertension. 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 21:33 Consideration of Admission/Observation Escalation of care including ms3 admission/observation considered. Troponin negative, heart score 3. Independent interpretation of the following test(s) in the Emergency Department EKG: See my EKG interpretation above X-Ray: My interpretation is Chest x-ray images reviewed by me do not reveal pneumonia, pneumothorax, enlarged mediastinal. Response to treatment: the patient's symptoms have markedly improved after treatment, and as a result, I will discharge patient. Special discussion: Based on the patient's history, exam, and Dx evaluation, there is no indication for emergent intervention or inpatient Tx. It is understood by the patient/guardian that if the Sx's persist or worsen they need to return immediately for re-evaluation. ED course: Labs, EKG, chest x-ray reviewed with patient. Patient to follow-up Dr. Dixon in 1 to 2 days. Patient understands and agrees with plan. All questions were answered. Return precautions discussed include worsening symptoms, or any other concerns. 10/10 20:15 Order name: Basic Metabolic Panel; Complete Time: 21: 10/10 20:15 Order name: CBC with Diff; Complete Time: : 10/10 20:15 Order name: Troponin HS; Complete Time: : [facility] 10/10 20:15 Order name: XRAY Chest (1 view); Complete Time: 21:33 10/10 20:15 Order name: EKG; Complete Time: 20: 10/10 20:15 Order name: Cardiac monitoring; Complete Time: : 10/10 20:15 Order name: EKG - Nurse/Tech; Complete Time: : 10/10 20:15 Order name: IV Saline Lock; Complete Time: : 10/10 20:15 Order name: Labs collected and sent; Complete Time: : [facility] 10/10 20:15 Order name: O2 Per Protocol; Complete Time: : [facility] 10/10 20:15 Order name: O2 Sat Monitoring; Complete Time: 20:22 lg3 EC:15 Rate is 66 beats/min. Rhythm is regular. QRS [place] is Normal. RI interval is normal. QRS ms3 interval is normal. Clinical impression: NSR w/ Non-specific ST/T Changes. Interpreted by me. Reviewed by me. Administered Medications: No medications were administered Disposition Summary: 10/10/22 21:33 Discharge Ordered Location: Home(10/10/22 21:33) ms3 Condition: Stable(10/10/22 21:33) ms3 Diagnosis - Chest pain, unspecified(10/10/22 21:33) ms3 - Anemia, unspecified ms3 - Essential (primary) hypertension(10/10/22 21:33) ms3 Followup: ms3 - With: Isaac Adames MD - When: 1 - 2 days - Reason: Recheck today's complaints Discharge Instructions: - Discharge Summary Sheet ms3 - Anemia ms3 - Nonspecific Chest Pain, Adult ms3 - Hypertension, Adult ms3 Forms: - Medication Reconciliation Form ms3 - Thank You Letter ms3 - Antibiotic Education ms3 - Prescription Opioid Use ms3 - Patient Portal Instructions ms3 - Leadership Thank You Letter ms3 Signatures: Dispatcher [employer] Annamarie Langston RN RN lg3 Johnie Fernandez DO DO ms3 Corrections: (The following items were deleted from the chart) 21:16 21:10 Home ms3 ms3 21:16 21:10 Stable ms3 ms3 21:16 21:10 Chest pain, unspecified ms3 ms3 21:16 21:11 Essential (primary) hypertension ms3 ms3
[2022-10-10 22:27] VITALS: TEMP 99.5
[2022-10-10 22:28] VITALS: O2SAT 100
[2022-10-10 22:29] VITALS: BP 144/78
--- NOTE | 2022-10-11 12:14 | EKG ---
Test Date: 2022-10-10 Test Time: 20:13:12 Transmission Design Engineer: [place] MEASUREMENT RESULTS: Intervals: Rate: 66 HI: 170 QRSD: 82 QT: 404 QTc: 423 Rex: P: 52 HI: 170 QRS: 45 T: 57 INTERPRETIVE STATEMENTS: Normal sinus rhythm Septal infarct, age undetermined Abnormal ECG Compared to ECG 09/03/2022 23:34:52 Myocardial infarct finding now present Electronically Signed On 10-11-22 12:12:06 CDT by Isaac Adames
== END 2022-10-10 21:45 | disposition home or self-care (01) ==
LOC: ER 20:06
DX: R07.89 Other chest pain (principal); D64.9 Anemia, unspecified; I10 Essential (primary) hypertension
CPT/HCPCS: 36415; 71045; 80048; 84484; 85025; 93005; 99285

== ENCOUNTER 2023-07-30 13:57 | Emergency (ER) | payer OTHER ==
--- OUTSIDE RECORDS SUMMARY | 2023-07-30 13:59 | XMS REPORT | Continuity of Care Document ---
Author Name Unknown Address [address] [place] [address] [facility] Address [address] [place] [address] Care Team Providers Care Senior Web Services Developer Name Role Phone Bonny Baker Primary Care Physician Sebastien Wong Attending Clinician Unavailable Anna Paredes MD Attending Clinician ANNA PAREDES Attending Clinician Unavailabl e Doctor Unassigned, [employer] Attending Clinician U navailable TUNDE PEDRO Attending Clinician Unavailable Tunde Brown Attending Clinician [phone] KERWIN FIELDS Attending Clinician Unavailable Edd Abrams MD Attending Clinician [phone] Kerwin Fields APN Attending Clinician [phone] Sebastien Wong Admitting Clinician Unavailable TUNDE PEDRO Admitting Clinician Unavailable KERWIN FIELDS Admitting Clinician Unavailable Payers Payer Name Policy Type Policy Number Effective Date Expirati on Date Source [facility] (MEDICARE REPLACEMENT HMO) [id number] 2021 00:00:00 Problems Condition Name Condition Details Condition Category Status Onset Date Resolution Date Last Treatment Date Treating Clinician Comments Source No known active problems No known active problems Disease [facility] Allergies, Adverse Reactions, Alerts Allergy Name Allergy Type Status Severity Reaction(s) Onset Date Inactive Date Treating Clinician Comments Source No Known Allergie s DA Active U 06-24 00:00: 00 [facility] No Known Allergie s DA Active U 06-24 00:00: 00 [facility] NO KNOWN ALLERGIE S Drug Class Active [facility] Social History Social Habit Start Date Stop Date Quantity Comments Source Exposure to SARS-CoV-2 (event) 2022-01-08 00:00:00 2022-01-18 13:19:00 Not sure [facility] Tobacco use and exposure 2022-01-18 00:00:00 2022-01-18 00:00:00 Smokeless tobacco non-user [facility] Alcohol intake 2022-01-18 00:00:00 2022-01-18 00:00:00 Lifetime non-drinker (finding) [facility] Sex Assigned At 1955 00:00:00 1955 00:00:00 [facility] Smoking Status Start Date Stop Date Source Tobacco smoking consumption unknown [facility] Never smoked tobacco [facility] Medications Ordered Medication Name Filled Medication Name Start Date Stop Date Current Medication? Ordering Clinician Indication Dosage Frequency Signature (SIG) Comments Components Source DICLOFENAC 75 mg EC tablet 03-31 00:00: 00 Yes [id number] TAKE 1 TABLET BY MOUTH IN THE MORNING AND IN THE EVENING WITH MEALS [facility] diclofenac 75 mg EC tablet 2021-02 00:00: 00 Yes 75mg Take 1 tablet by mouth in the morning and 1 tablet in the evening. Take with meals. [facility] methylPREDN ISolone (MEDROL, CHAZ,) 4 mg tablets 2021-02 00:00: 00 Yes [id number] 84mg Take 21 tablets by mouth SEE-INSTRU CTIONS. follow package directions [facility] HYDROcodone -acetaminop hen (NORCO 5) 5-325 mg tablet 1 tablet 2021-02 0 00:30: 00 11-16 00:59 :00 No 1{tbl} 1 tablet, Oral, ONCE, 1 dose, On 11/15/21 at 1930, DANNA [facility] methylPREDN ISolone 4 mg tablets 2021-02 00:00: 00 Yes [id number] Take by mouth SEE-INSTRU CTIONS. follow package directions [facility] methocarbam oL 750 mg tablet 2021-02 00:00: 00 Yes [id number] 750mg Take 1 tablet by mouth 4 (four) times daily as needed for Pain (scale 4-6). [facility] naproxen (EC-NAPROXE N) 375 mg EC tablet 2021-02 00:00: 00 11-26 04:59 :00 No [id number] 375mg Take 1 tablet by mouth in the morning and 1 tablet in the evening. Take with meals. Do all this for 10 days. [facility] traMADoL 50 mg tablet 2021-02 00:00: 00 11-23 04:59 :00 No [id number] 50mg Take 1 tablet by mouth every 6 (six) hours as needed for Pain (scale 7-10) for up to 7 days. Indication s: acute pain [facility] TAKE ONE (1) TABLET(S) BY MOUTH TWICE A DAY. 11-06 00:00: 00 No TAKE ONE (1) TABLET(S) BY MOUTH TWICE A DAY. 11-06 00:00: 00 No Dose Unknown 11-05 00:00: 00 No Dose Unknown 11-05 00:00: 00 No ketorolac (TORADOL) injection 15 mg 07-20 02:15: 00 07-20 01:25 :00 No 15mg 15 mg, Slow IV Push, ONCE, 1 dose, On Tue07/19/21 at 2115, DANNA [facility] NaCl 0.9% (NS) bolus infusion 1,000 mL 07-20 02:15: 00 07-20 03:04 :00 No 1000mL at 999 mL/hr, 1,000 mL, IV Infusion, ONCE, 1 dose, On Tue07/19/21 at 2115, STAT [facility] traMADoL 50 mg tablet 07-19 00:00: 00 Yes [id number] 50mg Take 1 tablet by mouth every 6 (six) hours as needed for Pain (scale 4-6). Indication s: acute pain [facility] Vital Signs Vital Name Observation Time Observation Value Comments S vita Systolic blood pressure 2021-11-15 23:30:00 134 mm[Hg] [facility] Diastolic blood pressure 2021-11-15 23:30:00 76 mm[Hg] [facility] Heart rate 2021-11-15 23:30:00 82 /min [facility] Body temperature 2021-11-15 23:30:00 37.17 Lashay [facility] Respiratory rate 2021-11-15 23:30:00 18 /min [facility] Body weight 2021-11-15 23:30:00 93.441 kg [facility] BMI 2021-11-15 23:30:00 25.75 kg/m2 [facility] Oxygen saturation in Arterial blood by Pulse oximetry 2021-11-15 23:30:00 99 /min [facility] Systolic blood pressure 2021-07-20 03:06:00 150 mm[Hg] [facility] Diastolic blood pressure 2021-07-20 03:06:00 93 mm[Hg] [facility] Heart rate 2021-07-20 03:06:00 69 /min [facility] Respiratory rate 2021-07-20 03:06:00 18 /min [facility] Oxygen saturation in Arterial blood by Pulse oximetry 2021-07-20 03:06:00 99 /min [facility] Body temperature 2021-07-20 00:43:00 37.28 Lashay [facility] Body height 2021-07-20 00:43:00 190.5 cm [facility] Body weight 2021-07-20 00:43:00 93.441 kg [facility] BMI 2021-07-20 00:43:00 25.75 kg/m2 [facility] BP Systolic 2021-12-17 14:57:00 137 mm[Hg] BP [...] Procedures Procedure Date / Time Performed Performing Clinicia n Source ASSIGNMENT OF BENEFITS 2022-01-18 19:24:41 Docto r Unassigned, [employer] [facility] REFERRAL- REQUEST/RESPONSE 2022-01-04 06:01:00 Doctor Unassigned, [employer] [facility] REFERRAL- REQUEST/RESPONSE 2021-12-17 05:01:00 Doctor Unassigned, [employer] [facility] XR KNEE 3 VW LEFT 2021-11-16 00:07:28 Tunde Pedro [facility] XR TIBIA FIBULA 2 VW LEFT 2021-11-16 00:07:28 Tunde Pedro [facility] CONSENT/REFUSAL FOR DIAGNOSIS AND TREATMENT 2021-11-15 23:27:22 Doctor Unassigned, [employer] [facility] CT ABDOMEN PELVIS WO CONTRAST 2021-07-20 01:35:00 Kerwin Fields [facility] COMP. METABOLIC PANEL (55512) 2021-07-20 01:18:00 Kerwin Fields [facility] CBC WITH DIFF 2021-07-20 01:18:00 Kerwin Fields [facility] URINALYSIS 2021-07-20 01:18:00 FieldsKerwin [facility] NOTICE OF PRIVACY PRACTICES 2021-07-20 00:32:07 Doctor Unassigned, [employer] [facility] Plan of Care Planned Activity Planned Date Details Comments Source Goal Plan of Care Note [code = 80341-2] Goal Plan of Care Note [code = 49030-4] Goal Plan of Care Note [code = 65695-1] Goal Plan of Care Note [code = 44973-7] Goal Plan of Care Note [code = 57376-8] Encounters Start Date/Time End Date/Time Encounter Type Admission Type Attending Clinicians Care Facility Care Department Encounter ID Source 2020-06-24 01:23:38 [id number] 2022-03-27 00:00:00 2022-03-27 00:00:00 Refill Anna Paredes [facility] [id number] [id number] 4.2.7.2.686 [id number] [facility] 2022-02-18 09:00:00 2022-02-18 09:00:00 Outpatient R ANNA PAREDES [facility] [id number] [facility] 2022-01-18 14:15:00 2022-01-18 14:15:00 Office Visit Anna Paredes [facility] [id number] 350.1.13.10 [id number] [id number] [facility] 2022-01-18 14:15:00 2022-01-18 14:01:16 Outpatient R ANNA PAREDES [facility] [id number] [facility] 2022-01-18 00:00:00 2022-01-18 00:00:00 Telephone Anna Paredes [facility] [id number] 350.1.13.10 4.2.7.2.686 [id number] [facility] 2022-01-18 00:00:00 2022-01-18 00:00:00 Orders Only Doctor Unassigned, [employer] [facility] 1..114 350.1.13.10 4.2.7.2.686 [id number] [facility] 2022-01-04 00:00:00 2022-01-04 00:00:00 Orders Only Doctor Unassigned, [employer] [facility] 1..114 350.1.13.10 4.2.7.2.686 [id number] [facility] 2021-12-17 14:52:52 2021-12-17 14:52:52 Outpatient [facility] [id number] Prakash [facility] 2021-12-17 00:00:00 2021-12-17 00:00:00 Outpatient Visit [id number] 2021-12-17 00:00:00 2021-12-17 00:00:00 Orders Only Doctor Unassigned, [employer] [facility] 1.114 350.1.13.10 4.2.7.2.686 [id number] [facility] 2021-12-16 00:00:00 2021-12-16 00:00:00 Telephone Anna Paredes [facility] 1.84.114 350.1.13.10 4.2.7.2.686 [id number] [facility] 2021-12-02 00:00:00 2021-12-02 00:00:00 Telephone [facility] 1..114 350.1.13.10 4.2.7.2.686 [id number] [facility] 2021-11-15 18:31:00 2021-11-15 20:23:00 Emergency X TUNDE PEDRO [facility] ERT [id number] [facility] 2021-11-15 18:31:00 2021-11-15 20:23:00 Emergency Rika Pedroanne [facility] [id number] 350.1.13.10 4.2.7.2.686 [id number] [facility] 2021-11-04 00:00:00 2021-11-04 00:00:00 Outpatient Visit [id number] 2021-07-19 19:48:00 2021-07-19 22:08:00 Emergency KERWIN JACQUES [facility] ERT [id number] [facility] 2021-07-19 19:48:00 2021-07-19 22:08:00 Emergency Edd Abrams Johnnie L [facility] [id number] 350.1.13.10 4.2.7.2.686 [id number] [facility] 2021-03-03 08:00:00 2021-03-03 08:00:00 Outpatient DMG DMG [id number] [facility] Results Test Description Test Time Test Comments Results Result Co mments Source [facility] WITH [id number] 01:33:12* Test Item Value Reference Range Interpretation Comme nts WBC (test code = 6690-2) See_Comment [Automated messa ge] The system which generated this result transmitted reference range: 4.20 - 10.70 10*3/?L. The reference range was not used to interpret this result as normal/abnormal. RBC (test code = 789-8) See_Comment [Automated messa ge] The system which generated this result transmitted reference range: 4.26 - 5.52 10*6/?L. The reference range was not used to interpret this result as normal/abnormal. HGB (test code = 718-7) 13.7 g/dL 12.2-16.4 HCT (test code = 4544-3) 38.3 % 38.4-49.3 L MCV (test code = 787-2) 84.2 fL 81.7-95.6 MCH (test code = 785-6) 30.1 pg 26.1-32.7 MCHC (test code = 786-4) 35.8 g/dL 31.2-35.0 H RDW-SD (test code = 32467-1) 35.6 fL 38.5-51.6 L RDW-CV (test code = 788-0) 11.7 % 12.1-15.4 L PLT (test code = 777-3) See_Comment [Automated Anyone Homea ge] The system which generated this result transmitted reference range: 150 - 328 10*3/?L. The reference range was not used to interpret this result as normal/abnormal. MPV (test code = 93729-3) 9.2 fL 9.8-13.0 L NRBC/100 WBC (test code = 4219436636) See_Comment [Automated Noom ssage] The system which generated this result transmitted reference range: 0.0 - 10.0 /100 WBCs. The reference range was not used to interpret this result as normal/abnormal. NRBC x10^3 (test code = 8240451497) <0.01 See_Comment [Automated messa ge] The system which generated this result transmitted reference range: 10*3/?L. The reference range was not used to interpret this result as normal/abnormal. GRAN MAT (NEUT) % (test code = 770-8) 65.8 % IMM GRAN % (test code = 9111678655) 0.30 % LYMPH % (test code = 736-9) 22.4 % MONO % (test code = 5905-5) 7.1 % EOS % (test code = 713-8) 4.0 % BASO % (test code = 706-2) 0.4 % GRAN MAT x10^3(ANC) (test code = 4469095694) 5.91 10*3/uL 1.99-6.95 IMM GRAN x10^3 (test code = 3166599192) 0.03 10*3/uL 0.00-0.06 LYMPH x10^3 (test code = 731-0) 2.02 10*3/uL 1.09-3.23 MONO x10^3 (test code = 742-7) 0.64 10*3/uL 0.36-1.02 EOS x10^3 (test code = 711-2) 0.36 10*3/uL 0.06-0.53 BASO x10^3 (test code = 704-7) 0.04 10*3/uL 0.01-0.09 Lab Interpretation (test code = 67993-5) Abnormal [facility]HA[facility]2020-06-24 09:24:00* Test Item Value Reference Range Interpretation Comme nts GLYCOSYLATED HEMOGLOBIN (HA1 C) (test code = GLYHGB) 5.5 % TOT HB 4.5-6.2 N LIPID PROFILE (CORONARY RISK)2020-06-24 08:32:00* Test Item Value Reference Range Interpretation Comme nts TRIGLYCERIDES (test code = TRIG) 112 MG/DL 30-200 N CHOLESTEROL (test code = CHOL) 160 MG/DL 122-200 N CHOLESTEROL/HDL RATIO (test code = CHOLHDL) 3.6 1.5-4.5 N 1. Initial classification based on total cholesterol: <200 mg/dl Desirable cholesterol 200-239 mg/dl Borderline high risk cholesterol >240 mg/dl High risk cholesterol2. Initial classification based on LDL cholesterol: <130 mg/dl Desirable LDL cholesterol 130-159 mg/dl Borderline high risk LDL >159 mg/dl High risk LDL cholesterol3. HDL < 35 mg/dl represent increased CHD risk; HDL > 60 mg/dl represent decreased CHD risk.4. Chol/HDL > 5.0 represent increased CHD risk in men; Chol/HDL > 4.5 represent increased CHD risk in women. HDL CHOLESTEROL (test code = HDL) 44 MG/DL 40-60 N LIPOPROTEIN LDL (test code = LDL) 94 MG/DL 62-130 N LIPOPROTEIN VLDL (test code = VLDL) 22 MG/DL 3-60 N
[2023-07-30] MEDS ORDERED: METOCLOPRAMIDE 5 MG TAB ONE (14:54)
[2023-07-30] MEDS ORDERED: KETOROLAC 30 MG/ML INJ ONE (14:54)
[2023-07-30] MEDS ORDERED: ACETAMINOPHEN 500 MG TAB ONE (14:54)
--- NOTE | 2023-07-30 15:03 | RAD REPORT ---
EXAM DESCRIPTION: CT - Head C Spine Mpr Wo Con - 07/30/2023 2:43 pm CLINICAL HISTORY: Head and neck injury status post fall. Head and neck pain COMPARISON: 2021 TECHNIQUE: Computed axial tomography of the head and cervical spine was obtained. Sagittal and coronal reconstruction was performed. All CT scans are performed using dose optimization technique as appropriate and may include automated exposure control or mA/KV adjustment according to patient size. FINDINGS: Left scalp swelling An intracranial bleed is not seen. The ventricles are normal in caliber. No significant hypodensity within the brain. An extra-axial fluid collection is not noted. Fluid within the visualized sinuses and mastoids is not seen A cervical fracture is not visualized. No dislocation is noted. Mild chronic posterior subluxation C5 on C6. Spondylosis cervical spine IMPRESSION: No acute intracranial abnormality is seen. A cervical fracture is not visualized. If the patient continues to have symptoms to suggest intracranial /spinal cord pathology then MRI wou ld be recommended
--- NOTE | 2023-07-30 15:08 | ER ---
Nurse's Notes [facility] Name: Jose J Sanchez Age: 67 yrs Sex: Male : 1955 Arrival Date: 07/30/2023 Time: 13:57 Bed 11 Private MD: Diagnosis: Concussion without loss of consciousness Presentation: 07/29 14:12 Chief complaint: Patient states: Fell 2 days ago, states, " My knees gave out on me" ph c/o headache that started last night, abrasion to L side of forehead. Denies LOC, does not take blood thinners. Coronavirus screen: Vaccine status:. Ebola Screen: No symptoms or risks identified at this time. Initial Sepsis Screen: Does the patient meet any 2 criteria? No. Patient's initial sepsis screen is negative. Does the patient have a suspected source of infection? No. Patient's initial sepsis screen is negative. Risk Assessment: Do you want to hurt yourself or someone else? Patient reports no desire to harm self or others. Onset of symptoms was July 30, 2023. 14:12 Method Of Arrival: Ambulatory ph 14:12 Acuity: DELICIA 4 ph Historical: - Allergies: 14:14 No Known Allergies; ph - Home Meds: 14:14 trazodone 50 mg Oral tab 1 tab once daily [Active]; ph - PMHx: 14:14 HTN; Hypercholesterolemia; ph - PSHx: 14:14 back surgery; facial surgery; five knee surgery; ph Screenin:30 Abuse screen: Denies threats or abuse. Denies injuries from another. Nutritional ss screening: No deficits noted. Tuberculosis screening: Never had TB. Assessment: 15:30 General: Appears in no apparent distress. comfortable, Behavior is calm, cooperative, ss Denies fever, feeling ill, fatigue, chills. Neuro: Level of Consciousness is awake, alert, obeys commands, Oriented to person, place, time, situation. Respiratory: Airway is patent Respiratory effort is even, unlabored, Respiratory pattern is regular, symmetrical. Derm: Skin temperature is warm. Injury Description: Abrasion sustained to L forehead was sustained 2 days ago. Vital Signs: 14:12 BP 144 / 94; Pulse 71; Resp 18; Temp 97; Pulse Ox 99% on R/A; Weight 81.65 kg; Height 6 ph ft. 3 in. ; 14:12 Body Mass Index 22.50 (81.65 kg, 190.5 cm) ph ED Course: 13:58 Patient arrived in ED. am2 14:02 René Acevedo MD is Attending Physician. ec2 14:14 Triage completed. ph 14:14 Arm band placed on. ph 14:44 CT Head C Spine In Process Unspecified. EDMS 15:01 CXR XRAY In Process Unspecified. EDMS 15:27 Analisa Garcia, RN is Primary Nurse. ss 15:30 Patient has correct armband on for positive identification. ss 15:30 No provider procedures requiring assistance completed. Patient did not have IV access ss during this emergency room visit. Administered Medications: 15:02 Drug: Ketorolac IM 15 mg IM once Route: IM; Site: left deltoid; hb 15:02 Drug: MetoCLOPramide PO 10 mg PO once Route: PO; hb 15:02 Drug: Acetaminophen PO 1000 mg PO once Route: PO; hb Outcome: 15:08 Discharge ordered by . ec2 15:30 Discharged to home ambulatory, ss 15:30 Condition: good 15:30 Discharge instructions given to patient, Instructed on discharge instructions, follow up and referral plans. medication usage, Demonstrated understanding of instructions, follow-up care, medications, Prescriptions given X 2, 15:37 Patient left the ED. ss Signatures: Dispatcher [employer] Analisa Milner, ROLA CANELA Amanda Dickson RN RN Andie Macias RN RN Abby Silverio am2 René Acevedo MD MD 2
--- NOTE | 2023-07-30 15:08 | EDPHYS ---
Physician Documentation [facility] Name: Jose J Sanchez Age: 67 yrs Sex: Male : 1955 Arrival Date: 07/30/2023 Time: 13:57 Bed 11 Private MD: ED Physician René Acevedo HPI: 07/29 14:15 This 67 yrs old Male presents to ER via Ambulatory with complaints of Fall ec2 Injury - 2 days ago, Headache, Head Injury-Adult. 14:15 Patient arrives today for evaluation for head injury. States that he fell 2 days ago, ec2 no LOC, no blood thinners. Denies any neck pain. Does complain of a headache. Has not tried medications. No prodromal symptoms. Complains of general arthritis, ambulated without issue. Historical: - Allergies: 14:14 No Known Allergies; ph - Home Meds: 14:14 trazodone 50 mg Oral tab 1 tab once daily [Active]; ph - PMHx: 14:14 HTN; Hypercholesterolemia; ph - PSHx: 14:14 back surgery; facial surgery; five knee surgery; ph ROS: 14:15 Constitutional: as per hpi ec2 Exam: 14:15 Constitutional: GEN: NAD Head: atraumatic Eyes: EOMI Ears: External ears are ec2 normal. CV: regular rate LUNGS: no respiratory distress ABD: non-distended SKIN: Abrasions noted to the left forehead. MSK: no evidence of trauma NEURO: moves all extremities equally Vital Signs: 14:12 BP 144 / 94; Pulse 71; Resp 18; Temp 97; Pulse Ox 99% on R/A; Weight 81.65 kg; Height 6 ph ft. 3 in. ; 14:12 Body Mass Index 22.50 (81.65 kg, 190.5 cm) ph MDM: 14:15 Data reviewed: vital signs. ED course: Patient arrives today for evaluation of head ec2 injury. Examination remarkable for well-appearing nontoxic individual who is ambulatory without issue. Will obtain CT scan of the head and C-spine as well as chest x-ray given the patient's recent fall. Differential diagnosis includes concussion, intracranial brain bleed, C-spine fracture. Patient also up-to-date on his tetanus.. 14:24 Patient medically screened. ec2 15:07 ED course: CT scan of the head and C-spine show no acute traumatic abnormality.. ec2 15:07 ED course: Chest x-ray independently reviewed and interpreted by me, shows no acute ec2 intrathoracic abnormality. On reassessment patient remains well-appearing in no acute distress. Will discharge home. Return precautions given.. 07/29 14:15 Order name: CT Head C Spine; Complete Time: 15:07 ec2 07/29 14:15 Order name: CXR XRAY; Complete Time: 15:30 ec2 Administered Medications: 15:02 Drug: Ketorolac IM 15 mg IM once Route: IM; Site: left deltoid; hb 15:02 Drug: MetoCLOPramide PO 10 mg PO once Route: PO; hb 15:02 Drug: Acetaminophen PO 1000 mg PO once Route: PO; hb Disposition Summary: 07/30/23 15:08 Discharge Ordered Notes: Location: Home ec2 Condition: Stable ec2 Diagnosis - Concussion without loss of consciousness ec2 Followup: ec2 - With: Private Physician - When: - Reason: Re-evaluation by your physician Discharge Instructions: - Discharge Summary Sheet ec2 - Concussion, Adult, [id number] ec2 Forms: - Medication Reconciliation Form ec2 - Antibiotic Education ec2 - Prescription Opioid Use ec2 - Patient Portal Instructions ec2 - Leadership Thank You Letter ec2 Prescriptions: - Compazine 10 mg Oral Tablet - take 1 tablet ORAL route every 8 hours As needed; 20 tablet; Refills: 0, ec2 Product Selection Permitted - methocarbamol 500 mg Oral tablet - take 1 tablet ORAL route 4 times per day; 10 tablet; Refills: 0, Product ec2 Selection Permitted Signatures: Dispatcher [employer] Amanda Pablo RN RN Andie Macias RN RN René Acevedo MD MD ec2 Corrections: (The following items were deleted from the chart) 14:16 14:16 Head C Spine MPR Wo Con+CT.RAD.BRZ ordered. EDMS EDMS 14:16 14:16 Chest Single View+RAD.RAD.BRZ ordered. EDMS EDMS
--- NOTE | 2023-07-30 15:11 | RAD REPORT ---
EXAM DESCRIPTION: Alpesh Single View07/30/2023 3:00 pm CLINICAL HISTORY: Chest pain COMPARISON: 2022 FINDINGS: The lungs appear clear of acute infiltrate. The heart is normal size IMPRESSION: No acute abnormalities displayed
[2023-07-30 16:25] VITALS: BP 144/94; TEMP 97; O2SAT 99
== END 2023-07-30 15:37 | disposition home or self-care (01) ==
LOC: ER 13:57
DX: S06.0X0A Concussion without loss of consciousness, initial encounter (principal); S00.81XA Abrasion of other part of head, initial encounter
CPT/HCPCS: 70450; 71045; 72125; 96372; 99284

== ENCOUNTER 2024-07-02 19:52 | Emergency (ER) | payer OTHER ==
--- OUTSIDE RECORDS SUMMARY | 2024-07-02 19:56 | XMS REPORT | Continuity of Care Document ---
Author Name Unknown Address [address] [facility] [address] [place] [address] [facility] Address [address] [facility] [place] [address] Care Team Providers Care Strip Mine Supervisor Name Role Phone Bonny Baker Primary Care Physician [phone] Maurizio Wong Attending Clinician Unavailable Campaigns, Generic Provider Attending Clinician Unavailable MK GARCIA Attending Clinician Unavailable MK GARCIA Attending Clinician Unavailable Mk Garcia NP Attending Clinician [phone] Anna Paredes MD Attending Clinician [phone] ANNA PAREDES Attending Clinician Unavailabl e Doctor Unassigned, [place] Attending Clinician U navailable TUNDE PEDRO Attending Clinician Unavailable Tunde Brown Attending Clinician [phone] KERWIN FIELDS Attending Clinician Unavailable Edd Abrams MD Attending Clinician [phone] Kerwin Fields APN Attending Clinician [phone] Maurizio Wong Admitting Clinician Unavailable MK GARCIA Admitting Clinician Unavailable TUNDE PEDRO Admitting Clinician Unavailable KERWIN FIELDS Admitting Clinician Unavailable Payers Payer Name Policy Type Policy Number Effective Date Expirati on Date Source [facility] (MEDICARE REPLACEMENT HMO) [id number] 2021 00:00:00 Problems Condition Name Condition Details Condition Category Status Onset Date Resolution Date Last Treatment Date Treating Clinician Comments Source No known active problems No known active problems Disease [facility] Allergies, Adverse Reactions, Alerts Allergy Name Allergy Type Status Severity Reaction(s) Onset Date Inactive Date Treating Clinician Comments Source No Known Allergie s DA Active U 06-24 00:00: 00 [facility] No Known Allergie s DA Active U 06-24 00:00: 00 [facility] NO KNOWN ALLERGIE S Drug Class Active [facility] Social History Social Habit Start Date Stop Date Quantity Comments Source [facility] to SARS-CoV-2 (event) 2022-01-08 00:00:00 2022-01-18 13:19:00 Not sure [facility] Tobacco use and exposure 2022-01-18 00:00:00 2022-01-18 00:00:00 Smokeless tobacco non-user [facility] Alcohol intake 2022-01-18 00:00:00 2022-01-18 00:00:00 Lifetime non-drinker (finding) [facility] Alcoholic beverage intake 2022-01-18 00:00:00 2022-01-18 00:00:00 Lifetime non-drinker (finding) [facility] History of Social function 2022-01-18 00:00:00 2022-01-18 00:00:00 [facility] Sex assigned at 1955 00:00:00 1955 00:00:00 [facility] Smoking Status Start Date Stop Date Source Tobacco smoking consumption unknown [facility] Never smoked tobacco [facility] Medications Ordered Medication Name Filled Medication Name Start Date Stop Date Current Medication? Ordering Clinician Indication Dosage Frequency Signature (SIG) Comments Components Source gabapentin 600 mg tablet 2023-02 23:19: 44 Yes 600mg Take 1 tablet by mouth in the morning and 1 tablet at noon and 1 tablet in the evening. [facility] lisinopriL 20 mg tablet 2023-02 23:19: 44 Yes 20mg Take 1 tablet by mouth in the morning. [facility] simvastatin 20 mg tablet 2023-02 0 23:19: 44 Yes 20mg Take 1 tablet by mouth at bedtime. [facility] traZODone 100 mg tablet 2023-02 23:19: 44 Yes 100mg Take 1 tablet by mouth at bedtime. [facility] cephALEXin 250 mg capsule 2023-02 00:00: 00 12-01 04:59 :00 No [id number] 250mg Take 1 capsule by mouth every 6 (six) hours for 5 days. [facility] naproxen 375 mg tablet 2023-02 00:00: 00 12-01 04:59 :00 No [id number] 9101 375mg Take 1 tablet by mouth in the morning and 1 tablet in the evening. Take with meals. Do all this for 5 days. [facility] DICLOFENAC 75 mg EC tablet 03-31 00:00: 00 Yes [id number] TAKE 1 TABLET BY MOUTH IN THE MORNING AND IN THE EVENING WITH MEALS [facility] diclofenac 75 mg EC tablet 2021-02 2 00:00: 00 Yes 75mg Take 1 tablet by mouth in the morning and 1 tablet in the evening. Take with meals. [facility] methylPREDN ISolone (MEDROL, CHAZ,) 4 mg tablets 2021-02 2 00:00: 00 Yes [id number] 84mg Take 21 tablets by mouth SEE-INSTRU CTIONS. follow package directions [facility] HYDROcodone -acetaminop hen (NORCO 5) 5-325 mg tablet 1 tablet 2021-02 0- 00:30: 00 11-16 00:59 :00 No 1{tbl} 1 tablet, Oral, ONCE, 1 dose, On 11/15/21 at 1930, DANNA [facility] methylPREDN ISolone 4 mg tablets 2021-02 0- 00:00: 00 Yes [id number] Take by mouth SEE-INSTRU CTIONS. follow package directions [facility] methocarbam oL 750 mg tablet 2021-02 00:00: 00 Yes [id number] 750mg Take 1 tablet by mouth 4 (four) times daily as needed for Pain (scale 4-6). [facility] naproxen (EC-NAPROXE N) 375 mg EC tablet 2021-02 00:00: 00 11-26 04:59 :00 No [id number] 375mg Take 1 tablet by mouth in the morning and 1 tablet in the evening. Take with meals. Do all this for 10 days. [facility] traMADoL 50 mg tablet 2021-02 00:00: 00 11-23 04:59 :00 No [id number] 50mg Take 1 tablet by mouth every 6 (six) hours as needed for Pain (scale 7-10) for up to 7 days. Indication s: acute pain [facility] TAKE ONE (1) TABLET(S) BY MOUTH [...] 1 dose, On Tue07/19/21 at 2115, DANNA [facility] NaCl 0.9% (NS) bolus infusion 1,000 mL 07-20 02:15: 00 07-20 03:04 :00 No 1000mL at 999 mL/hr, 1,000 mL, IV Infusion, ONCE, 1 dose, On Tue07/19/21 at 2115, STAT [facility] traMADoL 50 mg tablet 07-19 00:00: 00 Yes 4647 50mg Take 1 tablet by mouth every 6 (six) hours as needed for Pain (scale 4-6). Indication s: acute pain [facility] Vital Signs Vital Name Observation Time Observation Value Comments S ource Systolic blood pressure 2023-11-26 23:08:00 153 mm[Hg] [facility] Diastolic blood pressure 2023-11-26 23:08:00 99 mm[Hg] [facility] Heart rate 2023-11-26 23:08:00 71 /min [facility] Body temperature 2023-11-26 23:08:00 37.28 Lashay [facility] Respiratory rate 2023-11-26 23:08:00 16 /min [facility] Body height 2023-11-26 23:08:00 190.5 cm [facility] Body weight 2023-11-26 23:08:00 81.647 kg [facility] BMI 2023-11-26 23:08:00 22.50 kg/m2 [facility] Oxygen saturation in Arterial blood by Pulse oximetry 2023-11-26 23:08:00 100 /min [facility] Systolic blood pressure 2021-11-15 23:30:00 134 mm[Hg] [facility] Diastolic blood pressure 2021-11-15 23:30:00 76 mm[Hg] [facility] Heart rate 2021-11-15 23:30:00 82 /min [facility] Body temperature 2021-11-15 23:30:00 37.17 Lashay [facility] Respiratory rate 2021-11-15 23:30:00 18 /min [facility] Body weight 2021-11-15 23:30:00 93.441 kg [facility] BMI 2021-11-15 23:30:00 25.75 kg/m2 [facility] Oxygen saturation in Arterial blood by Pulse oximetry 2021-11-15 23:30:00 99 /min [facility] Systolic blood pressure 2021-07-20 03:06:00 150 mm[Hg] [facility] Diastolic blood pressure 2021-07-20 03:06:00 93 mm[Hg] [facility] Heart rate 2021-07-20 03:06:00 69 /min [facility] Respiratory rate 2021-07-20 03:06:00 18 /min [facility] Oxygen saturation in Arterial blood by Pulse oximetry 2021-07-20 03:06:00 99 /min [place] [facility] Body temperature 2021-07-20 00:43:00 37.28 Lashay [facility] Body height 2021-07-20 00:43:00 190.5 cm [facility] Body weight 2021-07-20 00:43:00 93.441 kg [facility] BMI 2021-07-20 00:43:00 25.75 kg/m2 [facility] BP Systolic 2021-12-17 14:57:00 137 mm[Hg] [...] / Time Performed Performing Clinicia n Source XR TOES 2 VW RIGHT 2023-11-27 00:09:21 Mk Garcia [facility] POCT GLUCOSE(AGE >30DAYS) 2023-11-26 23:16:00 Mk Garcia [facility] POCT GLUCOSE (AUTOMATED) 2023-11-26 23:14:00 Mk Garcia [facility] ASSIGNMENT OF BENEFITS 2022-01-18 19:24:41 Docto r Unassigned, [place] [facility] REFERRAL- REQUEST/RESPONSE 2022-01-04 06:01:00 Doctor Unassigned, [place] [facility] REFERRAL- REQUEST/RESPONSE 2021-12-17 05:01:00 Doctor Unassigned, [place] [facility] XR KNEE 3 VW LEFT 2021-11-16 00:07:28 Tunde Pedro [facility] XR TIBIA FIBULA 2 VW LEFT 2021-11-16 00:07:28 Tunde Pedro [facility] CONSENT/REFUSAL FOR DIAGNOSIS AND TREATMENT 2021-11-15 23:27:22 Doctor Unassigned, [place] [facility] CT ABDOMEN PELVIS WO CONTRAST 2021-07-20 01:35:00 Kerwin Fields [facility] COMP. METABOLIC PANEL (13871) 2021-07-20 01:18:00 Kerwin Fields [facility] CBC WITH DIFF 2021-07-20 01:18:00 Kerwin Fields [facility] URINALYSIS 2021-07-20 01:18:00 Kerwin Fields [facility] NOTICE OF PRIVACY PRACTICES 2021-07-20 00:32:07 Doctor Unassigned, [place] [facility] Plan of Care Planned Activity Planned Date Details Comments Source Goal Plan of Care Note [code = 19317-0] Goal Plan of Care Note [code = 59995-8] Goal Plan of Care Note [code = 75859-4] Goal Plan of Care Note [code = 48650-5] Goal Plan of Care Note [code = 39735-6] Encounters Start Date/Time End Date/Time Encounter Type Admission Type Attending Clinicians Care Facility Care Department Encounter ID Source 2020-06-24 01:23:38 [id number] 2024-02-23 00:00:00 2024-02-23 10:34:00 Letter (Out) Campaigns, Generic Provider Campaigns, Generic Provider [facility] (MAURIZIO) 1.2.840.114 350.1.13.10 4.2.7.2.686 [id number] [facility] 2023-12-07 00:00:00 2023-12-07 10:12:00 Letter (Out) Campaigns, Generic Provider Campaigns, Generic Provider [facility] [place] ([place]URIZIO) 1.2.840.114 350.1.13.10 4.2.7.2.686 [id number] [facility] 2023-11-26 18:10:00 2023-11-26 21:42:00 Emergency X MK GARCIA PAMALA [facility] ERT [id number] [facility] 2023-11-26 18:10:00 2023-11-26 21:42:00 Emergency Mk Garcia [facility] 1.2.840.114 350.1.13.10 4.2.7.2.686 [id number] [facility] 2022-03-27 00:00:00 2022-03-27 00:00:00 Refill Anna Paredes [facility] 1.2.840.114 350.1.13.10 4.2.7.2.686 [id number] [facility] 2022-02-18 09:00:00 2022-02-18 09:00:00 Outpatient R ANNA PAREDES [facility] [id number] [facility] 2022-01-18 14:15:00 2022-01-18 14:15:00 Office Visit Anna Paredes [facility] 1..840.114 350.1.13.10 4.2.7.2.686 [id number] [facility] 2022-01-18 14:15:00 2022-01-18 14:01:16 Outpatient R ANNA PAREDES [facility] RAD [id number] [facility] 2022-01-18 00:00:00 2022-01-18 00:00:00 Telephone Anna Paredes [facility] 1.2840.114 350.1.13.10 4.2.7.2.686 [id number] [facility] 2022-01-18 00:00:00 2022-01-18 00:00:00 Orders Only Doctor Unassigned, [place] [facility] 1.2840.114 350.1.13.10 4.2.7.2.686 [id number] [facility] 2022-01-04 00:00:00 2022-01-04 00:00:00 Orders Only Doctor Unassigned, [place] [facility] 1.2840.114 350.1.13.10 4.2.7.2.686 [id number] [facility] 2021-12-17 14:52:52 2021-12-17 14:52:[address] [facility] [id number] Prakash Oakes 2021-12-17 00:00:00 2021-12-17 00:00:00 Outpatient Visit [id number] 2021-12-17 00:00:00 2021-12-17 00:00:00 Orders Only Doctor Unassigned, [place] [facility] 1.2840.114 350.1.13.10 4.2.7.2.686 [id number] [facility] 2021-12-16 00:00:00 2021-12-16 00:00:00 Telephone Anna Paredes [facility] 1.2840.114 350.1.13.10 4.2.7.2.686 [id number] [facility] 2021-12-02 00:00:00 2021-12-02 00:00:00 Telephone Anna [facility]ared[facility] 1.2.840.114 350.1.13.10 4.2.7.2.686 [id number] [facility] 2021-11-15 18:31:00 2021-11-15 20:23:00 Emergency X TUNDE PEDRO [facility] ERT [id number] [facility] 2021-11-15 18:31:00 2021-11-15 20:23:00 Emergency Rika Pedroanne [facility] 1.2.840.114 350.1.13.10 4.2.7.2.686 [id number] [facility] 2021-11-04 00:00:00 2021-11-04 00:00:00 Outpatient Visit [id number] 2021-07-19 19:48:00 2021-07-19 22:08:00 Emergency X KERWIN FIELDS [facility] ERT [id number] [facility] 2021-07-19 19:48:00 2021-07-19 22:08:00 Emergency Jose Alberto Edd Kerwin Pedro [facility] 1.2.840.114 350.1.13.10 4.2.7.2.686 [id number] [facility] 2021-03-03 08:00:00 2021-03-03 08:00:00 Outpatient DMG DM [id number] [facility] Results Test Description Test Time Test Comments Results Result Comments Source XR TOES 2 VW RIGHT 01:54:04 Exam: Right Toes, 11/26/2023 6:15 PM. Ordering Physician: MK GARCIA. History: 5th digit . Technique: 3 views of the right toes. Comparison: None. Findings: Soft tissue swelling is noted at the fifth digit. There is no acutefracture or dislocation. ?There is nonsegmentation of the fifth distalinterphalangeal joint. No radiopaque foreign body is visualized[facility]30[facility] 23:16:00* Test Item Value Reference Range Interpretation Comme nts POCT Glu (age>30days) (test code = 3342) 79 mg/dL 70-110 Lab Interpretation (test cod e = 31855-1) Normal [facility]32571[facility]2021-07-20 01:42:54* Test Item Value Reference Range Interpretation Comme nts NA (test code = 6792525537) 138 mmol/L 135-145 K (test code = 6031814666) 4.1 mmol/L 3.5-5.0 CL (test code = 8008262391) 104 mmol/L 98-108 CO2 TOTAL (test code = 1207929185) 22 mmol/L 23-31 L AGAP (test code = 1927984413) 2-16 BUN (test code = 2080863246) 16 mg/dL 7-23 GLUCOSE (test code = 6641705137) 115 mg/dL 70-110 H CREATININE (test code = 4247315425) 0.84 mg/dL 0.60-1.25 TOTAL BILI (test code = 6626261663) 0.6 mg/dL 0.1-1.1 CALCIUM (test code = 4435828883) 8.9 mg/dL 8.6-10.6 T PROTEIN (test code = 9729292756) 6.8 g/dL 6.3-8.2 ALBUMIN (test code = 2371416149) 4.4 g/dL 3.5-5.0 ALK PHOS (test code = 4727783288) 74 U/L 34-122 ALTv (test code = 1742-6) 32 U/L 5-50 AST(SGOT) (test code = 4446753737) 32 U/L 13-40 eGFR (test code = 3279844601) mL/min/1.73m2 ANGEL (test code = ANGEL) Association of Glomerular Filtration Rate (GFR) and Staging of Kidney Disease* + --+ --+ ------+| GFR (mL/min/1.73 m2) ?| With Kidney Damage ?| ?Without Kidney Damage+ --------+ --------+ +| ?>90 ?| ?Stage one ?| ? Normal ?+ ---+ ---+ -------+| ?60-89 ?| ?Stage two ?| ? Decreased GFR ? + --+ --+ ------+| ?30-59 ?| ?Stage three ?| ? Stage three ? + --+ --+ ------+| ?15-29 ?| ?Stage four ? | ? Stage four ?+ ---+ ---+ -------+| ?<15 (or dialysis) ? ?| ?Stage five ? | ? Stage five ?+ ---+ ---+ -------+ *Each stage assumes the associated GFR [...] imaging tests). Lab Interpretation (test code = 65838-8) Abnormal [facility] WITH [id number] 01:33:12* Test Item Value Reference Range Interpretation Comme nts WBC (test code = 6690-2) See_Comment [Automated Wikia] The system which generated this result transmitted reference range: 4.20 - 10.70 10*3/?L. The reference range was not used to interpret this result as normal/abnormal. RBC (test code = 789-8) See_Comment [Automated Wikia] The system which generated this result transmitted [...] g/dL 31.2-35.0 H RDW-SD (test code = 68000-5) 35.6 fL 38.5-51.6 L RDW-CV (test code = 788-0) 11.7 % 12.1-15.4 L PLT (test code = 777-3) See_Comment [Automated messa ge] The system which generated this result transmitted reference range: 150 - 328 10*3/?L. The reference range was not used to interpret this result as normal/abnormal. MPV (test code = 74717-6) 9.2 fL 9.8-13.0 L NRBC/100 WBC (test code = 8466118079) See_Comment [Automated Memorop ssage] The system which generated this result transmitted reference range: 0.0 - 10.0 /100 WBCs. The reference range was not used to interpret this result as normal/abnormal. NRBC x10^3 (test code = 5752938512) <0.01 See_Comment [Automated messa ge] The system which generated this result transmitted reference range: 10*3/?L. The reference range was not used to interpret this result as normal/abnormal. GRAN MAT (NEUT) % (test code = 770-8) 65.8 % IMM GRAN % (test code = 0847566710) 0.30 % LYMPH % (test code = 736-9) 22.4 % MONO % (test code = 5905-5) 7.1 % EOS % (test code = 713-8) 4.0 % BASO % (test code = 706-2) 0.4 % GRAN MAT x10^3(ANC) (test code = 0523646684) 5.91 10*3/uL 1.99-6.95 IMM GRAN x10^3 (test code = 2993586186) 0.03 10*3/uL 0.00-0.06 LYMPH x10^3 (test code = 731-0) 2.02 10*3/uL 1.09-3.23 MONO x10^3 (test code = 742-7) 0.64 10*3/uL 0.36-1.02 EOS x10^3 (test code = 711-2) 0.36 10*3/uL 0.06-0.53 BASO x10^3 (test code = 704-7) 0.04 10*3/uL 0.01-0.09 Lab Interpretation (test code = 84479-1) [facility]normal [facility]HA1C[facility]2020-06-24 09:24:00* Test Item Value Reference [...] code = VLDL) 22 MG/DL 3-60 N Notes Date/Time Note Provider Source 2023-11-26 21:41:08 Pt discharged with diagnosis of pain of toe of R foot. Printed and verbal instructions reviewed with and given to pt. Prescriptions given x 2. Pt verbalized understanding of teaching, medications, and recommended follow-up. Denies questions or concerns at this time. Pt ambulatory at discharge. Appears in no apparent distress. No ataxia noted. Refused DC VS. Alina Santana RN [facility] 2023-11-26 18:07:20 Patient states: "I've got something on my toe. I've been trying to take care of it myself but it's making my feet hurt and I can hardly wear my shoes" Deneen Mancilla RN [facility]
[2024-07-02] MEDS ORDERED: predniSONE 20 MG TAB ONE (20:42)
[2024-07-02] MEDS ORDERED: DIPHENHYDRAMINE 25 MG TAB/CAP ONE (20:43)
[2024-07-02] MEDS ORDERED: FAMOTIDINE 20 MG TAB ONE (20:43)
--- NOTE | 2024-07-02 22:26 | EDPHYS ---
Physician Documentation [facility] Name: Jose J Sanchez Age: 68 yrs Sex: Male : 1955 Arrival Date: 07/02/2024 Time: 19:52 Bed DX4 Private MD: ED Physician Placido Chowdhury HPI: 07/02 19:59 This 68 yrs old Other Race Male presents to ER via Unassigned with complaints of Bee sp4 Sting. 07/03 19:24 This 68-year-old male presents with acute onset bee stings to the right forearm, left sp4 upper arm, and posterior neck. Patient complains of local irritation, swelling and itching as well. No known allergy to bees. Patient did not take anything prior to arrival.. Historical: - Allergies: 07/02 20:17 No Known Allergies; br2 - PMHx: 20:17 HTN; Hypercholesterolemia; br2 - PSHx: 20:17 back surgery; facial surgery; five knee surgery; br2 - Immunization history:: Adult Immunizations up to date, Last tetanus immunization: < 5 years ago. - Infectious Disease History:: Denies. - Social history:: Smoking status: Patient/guardian denies using tobacco, Patient/guardian denies using alcohol, street drugs. - Family history:: not pertinent. ROS: 07/03 19:24 Constitutional: Negative for fever, chills, and weight loss, positive for redness sp4 tenderness swelling and irritation at the site of the bee stings. All other systems are negative, Exam: 19:24 Constitutional: This is a well developed, well nourished patient who is awake, alert, sp4 and in no acute distress. Head/Face: Normocephalic, atraumatic. Eyes: Pupils equal round and reactive to light, extra-ocular motions intact. Lids and lashes normal. Conjunctiva and sclera are not injected. Cornea within normal limits. Periorbital areas with no swelling, redness, or edema. ENT: Nares patent. No nasal discharge, no septal abnormalities noted. Tympanic membranes are normal and external auditory canals are clear. Oropharynx with no redness, swelling, or masses, exudates, or evidence of obstruction, uvula midline. Mucous membranes moist. Neck: Trachea midline, no thyromegaly or masses palpated, and no cervical lymphadenopathy. Supple, full range of motion without nuchal rigidity, or vertebral point tenderness. Chest/axilla: Normal chest wall appearance and motion. Nontender with no deformity. No lesions are appreciated. Cardiovascular: Regular rate and rhythm with a normal S1 and S2. No gallops, murmurs, or rubs. Normal PMI, no JVD. No pulse deficits. Respiratory: Lungs have equal breath sounds bilaterally, clear to auscultation and percussion. No rales, rhonchi or wheezes noted. No increased work of breathing, no retractions or nasal flaring. Abdomen/GI: Soft, with normal bowel sounds. No distension or tympany. No guarding or rebound. No evidence of tenderness throughout. Back: No spinal tenderness. No costovertebral tenderness. Skin: Warm, dry with normal turgor. Normal color with skin hives with some swelling irritation the redness to right palmar forearm, left upper arm, and posterior neck. This is consistent with acute bee envenomation MS/ Extremity: Pulses equal, no cyanosis. Neurovascular intact. Full, normal range of motion. Neuro: Awake and alert, GCS 15, oriented to person, place, time, and situation. Cranial nerves II-XII grossly intact. Motor strength 5/5 in all extremities. Sensory grossly intact. Psych: Awake, alert, with orientation to person, place and time. Behavior, mood, and affect are within normal limits Vital Signs: 07/02 20:13 BP 132 / 80; Pulse 87; Resp 18; Temp 97.2(O); Pulse Ox 98% on R/A; Weight 81.65 kg; br2 Height 6 ft. 3 in. ; Pain 7/10; 20:13 Body Mass Index 22.50 (81.65 kg, 190.5 cm) br2 20:13 Pain Scale: Adult br2 [place] Coma Score: 07/03 19:24 Eye Response: spontaneous(4). Motor Response: obeys commands(6). Verbal Response: sp4 oriented(5). Total: 15. MDM: 07/02 20:01 Medical Screening Exam initiated sp4 07/03 19:24 Differential diagnosis: impetigo, varicella, allergic reaction, parasite infection. sp4 Data reviewed: vital signs, nurses notes. Consideration of Admission/Observation Escalation of care including admission/observation considered. ED course: Patient has improved after p.o. medications. Advised to take prednisone for the next 5 days. Benadryl every 8 hours as needed for redness and itching. Otherwise stable for discharge.. Administered Medications: 07/02 20:51 Drug: predniSONE PO 60 mg PO once Route: PO; br2 21:15 Follow up: Response: No adverse reaction br2 20:51 Drug: diphenhydrAMINE PO 50 mg PO once Route: PO; br2 21:15 Follow up: Response: No adverse reaction br2 20:51 Drug: Famotidine PO 20 mg PO once Route: PO; br2 21:15 Follow up: Response: No adverse reaction br2 Disposition: 07/03 19:24 Chart complete. sp4 Disposition Summary: 07/02/24 22:25 Discharge Ordered Notes: Location: Home sp4 Problem: new sp4 Symptoms: have improved sp4 Condition: Stable sp4 Diagnosis - Acute allergic reaction secondary to bee sting, acute hives sp4 Followup: sp4 - With: Private Physician - When: 7 - 10 days - Reason: Recheck today's complaints Discharge Instructions: - Discharge Summary Sheet sp4 - Bee, Wasp, or Hornet Sting, Adult sp4 Forms: - Patient Portal Instructions sp4 Prescriptions: - Benadryl 25 mg Oral capsule - take 2 capsule ORAL route every 8 hours As needed PRN itching or redness; 30 sp4 tablet; Refills: 0, Product Selection Permitted - Prednisone 20 mg Oral Tablet - take 2 tablets ORAL route once daily for 5 days; 10 tablet; Refills: 0, Product sp4 Selection Permitted Signatures: Placido Chowdhury MD MD sp4 Lisa Garduno RN RN br2
--- NOTE | 2024-07-02 22:26 | ER ---
Nurse's Notes [facility] Name: Jose J Sanchez Age: 68 yrs Sex: Male : 1955 Arrival Date: 07/02/2024 Time: 19:52 Bed DX4 Private MD: Diagnosis: Acute allergic reaction secondary to bee sting, acute hives Presentation: 07/02 20:13 Chief complaint: Patient states: STUNG BY MULTIPLE BEES. ONE ON RIGHT NECK, BEHIND LEFT br2 EAR, AND ARMS. PT DENIES SOB. THIS OCCURRED APPROX 1400 TODAY. Coronavirus screen: Client denies travel out of the [place] in the last 14 days. Ebola Screen: Patient denies exposure to infectious person. Onset: The symptoms/episode began/occurred 4 hour(s) ago. Anaphylaxis evaluation, no signs or symptoms of anaphylaxis were noted. Initial Sepsis Screen: Does the patient meet any 2 criteria? No. Patient's initial sepsis screen is negative. Does the patient have a suspected source of infection? No. Patient's initial sepsis screen is negative. Risk Assessment: Do you want to hurt yourself or someone else? Patient reports no desire to harm self or others. Onset of symptoms was July 02, 2024 at 14:00. 20:13 Method Of Arrival: Ambulatory br2 20:13 Acuity: DELICIA 4 br2 20:13 Acuity: DELICIA 5 br2 Triage Assessment: 20:17 General: Appears in no apparent distress. uncomfortable, Behavior is calm, cooperative. br2 Pain: Complains of pain in scalp, left ear, right arm and left arm. Historical: - Allergies: 20:17 No Known Allergies; br2 - PMHx: 20:17 HTN; Hypercholesterolemia; br2 - PSHx: 20:17 back surgery; facial surgery; five knee surgery; br2 - Immunization history:: Adult Immunizations up to date, Last tetanus immunization: < 5 years ago. - Infectious Disease History:: Denies. - Social history:: Smoking status: Patient/guardian denies using tobacco, Patient/guardian denies using alcohol, street drugs. - Family history:: not pertinent. Assessment: 20:13 Reassessment: see triage assessment. Respiratory: Denies shortness of breath. br2 Vital Signs: 20:13 BP 132 / 80; Pulse 87; Resp 18; Temp 97.2(O); Pulse Ox 98% on R/A; Weight 81.65 kg; br2 Height 6 ft. 3 in. ; Pain 7/10; 20:13 Body Mass Index 22.50 (81.65 kg, 190.5 cm) br2 20:13 Pain Scale: Adult br2 [place] Coma Score: 07/03 19:24 Eye Response: spontaneous(4). Motor Response: obeys commands(6). Verbal Response: sp4 oriented(5). Total: 15. ED Course: 07/02 19:57 Patient arrived in ED. al6 19:59 Placido Chowdhury MD is Attending Physician. sp4 20:17 Triage completed. br2 20:17 Arm band placed on right wrist. br2 Administered Medications: 20:51 Drug: predniSONE PO 60 mg PO once Route: PO; br2 21:15 Follow up: Response: No adverse reaction br2 20:51 Drug: diphenhydrAMINE PO 50 mg PO once Route: PO; br2 21:15 Follow up: Response: No adverse reaction br2 20:51 Drug: Famotidine PO 20 mg PO once Route: PO; br2 21:15 Follow up: Response: No adverse reaction br2 Outcome: 22:25 Discharge ordered by . sp4 22:35 Patient left the ED. br2 22:35 Discharged to home ambulatory, br2 22:35 Condition: stable 22:35 Discharge instructions given to patient, Instructed on discharge instructions, follow up and referral plans. Demonstrated understanding of instructions, Prescriptions given X 2, Signatures: Placido Chowdhury MD MD sp4 Lisa Garduno RN RN br2 Eli Childs al6
[2024-07-02 23:10] VITALS: BP 132/80; TEMP 97.2; O2SAT 98
== END 2024-07-02 22:35 | disposition home or self-care (01) ==
LOC: ER 19:52
DX: T63.441A Toxic effect of venom of bees, accidental (unintentional), initial encounter (principal); L50.9 Urticaria, unspecified
CPT/HCPCS: 99283; J7512

== ENCOUNTER 2024-11-12 13:25 | Emergency (ER) | payer OTHER ==
--- OUTSIDE RECORDS SUMMARY | 2024-11-12 13:30 | XMS REPORT | Continuity of Care Document ---
Author Name Unknown Address [address] [place] [address] [facility] Address [address] [place] [address] Care Team Providers Care Quality Assurance Intern Name Role Phone Bonny Baker Primary Care Physician Maurizio Wong Attending Clinician Unavailable Campaigns, Generic Provider Attending Clinician Unavailable MK GARCIA Attending Clinician Unavailable MK GARCIA Attending Clinician Unavailable Mk Garcia NP Attending Clinician [phone] Anna Paredes MD Attending Clinician [phone] ANNA PAREDES Attending Clinician Unavailabl e Doctor Unassigned, [place] Attending Clinician U navailable TUNDE PEDRO Attending Clinician Unavailable Tunde Brown Attending Clinician [phone] KERWIN FIELDS Attending Clinician Unavailable Edd Abrams MD Attending Clinician [phone] Kerwin Fields APN Attending Clinician [phone] Maurizio Wong Admitting Clinician Unavailable MK GARCIA Admitting Clinician Unavailable TUNDE PEDRO Admitting Clinician Unavailable KERWIN FIELDS Admitting Clinician Unavailable Payers Payer Name Policy Type Policy Number Effective Date Expirati on Date Source [employer] (MEDICARE REPLACEMENT O) [id number] 2021 00:00:00 Problems Condition Name Condition Details Condition Category Status Onset Date Resolution Date Last Treatment Date Treating Clinician Comments Source No known active problems No known active problems Disease [facility] Allergies, Adverse Reactions, Alerts Allergy Name Allergy Type Status Severity Reaction(s) Onset Date Inactive Date Treating Clinician Comments Source No Known Allergie s DA Active U 06-24 00:00: 00 [facility] No Known Allergie s DA Active U 06-24 00:00: 00 [facility] NO KNOWN ALLERGIE S Drug Class Active [facility] Social History Social Habit Start Date Stop Date Quantity Comments Source [facility] to SARS-CoV-2 (event) 2022-01-08 00:00:00 2022-01-18 13:19:00 Not sure [facility] Tobacco use and exposure 2022-01-18 00:00:00 2022-01-18 00:00:00 Smokeless tobacco non-user [facility] Alcohol intake 2022-01-18 00:00:00 2022-01-18 00:00:00 Lifetime non-drinker (finding) [facility] Alcoholic beverage intake 2022-01-18 00:00:00 2022-01-18 00:00:00 Lifetime non-drinker (finding) [facility] History of Social function 2022-01-18 00:00:00 2022-01-18 00:00:00 [facility] Sex assigned at 1955 00:00:00 1955 00:00:00 [facility] Smoking Status Start Date Stop Date Source Tobacco smoking consumption unknown [facility] Never smoked tobacco [facility] Medications Ordered Medication Name Filled Medication Name Start Date Stop Date Current Medication? Ordering Clinician Indication Dosage Frequency Signature (SIG) Comments Components Source gabapentin 600 mg tablet 2023-02 23:19: 44 Yes 600mg Take 1 tablet by mouth in the morning and 1 tablet at noon and 1 tablet in the evening. [facility] lisinopriL 20 mg tablet 2023-02 23:19: 44 Yes 20mg Take 1 tablet by mouth in the morning. [facility] simvastatin 20 mg tablet 2023-02 23:19: 44 Yes 20mg Take 1 tablet by mouth at bedtime. [facility] traZODone 100 mg tablet 2023-02 23:19: 44 Yes 100mg Take 1 tablet by mouth at bedtime. [facility] cephALEXin 250 mg capsule 2023-02 00:00: 00 12-01 04:59 :00 No [id number] 9101 250mg Take 1 capsule by mouth every 6 (six) hours for 5 days. [facility] naproxen 375 mg tablet 2023-02 00:00: 00 12-01 04:59 :00 No [id number] 9101 375mg Take 1 tablet by mouth in the morning and 1 tablet in the evening. Take with meals. Do all this for 5 days. [facility] DICLOFENAC 75 mg EC tablet 03-31 00:00: 00 Yes [id number] TAKE 1 TABLET BY MOUTH IN THE MORNING AND IN THE EVENING WITH MEALS [facility] diclofenac 75 mg EC tablet 2021-02 00:00: 00 Yes 75mg Take 1 tablet by mouth in the morning and 1 tablet in the evening. Take with meals. [facility] methylPREDN ISolone (MEDROL, CHAZ,) 4 mg tablets 2021-02 00:00: 00 Yes [id number] 84mg Take 21 tablets by mouth SEE-INSTRU CTIONS. follow package directions [facility] HYDROcodone -acetaminop hen (NORCO 5) 5-325 mg tablet 1 tablet 2021-02 0 00:30: 00 11-16 00:59 :00 No 1{tbl} 1 tablet, Oral, ONCE, 1 dose, On 11/15/21 at 1930, DANNA [facility] methylPREDN ISolone 4 mg tablets 2021-02 0 00:00: 00 Yes [id number] Take by mouth SEE-INSTRU CTIONS. follow package directions [facility] methocarbam oL 750 mg tablet 2021-02 0- 00:00: 00 Yes [id number] 750mg Take 1 tablet by mouth 4 (four) times daily as needed for Pain (scale 4-6). [facility] naproxen (EC-NAPROXE N) 375 mg EC tablet 2021-02 00:00: 00 11-26 04:59 :00 No [id number] 375mg Take 1 tablet by mouth in the morning and 1 tablet in the evening. Take with meals. Do all this for 10 days. [facility] traMADoL 50 mg tablet 2021-02 00:00: 00 11-23 04:59 :00 No [id number] 50mg Take 1 tablet by mouth every 6 (six) hours as needed for Pain (scale 7-10) for up to 7 days. Indication s: acute pain [facility] TAKE ONE (1) TABLET(S) BY MOUTH [...] 1 dose, On Tue07/19/21 at 2115, DANNA [facility] NaCl 0.9% (NS) bolus infusion 1,000 mL 07-20 02:15: 00 07-20 03:04 :00 No 1000mL at 999 mL/hr, 1,000 mL, IV Infusion, ONCE, 1 dose, On Tue07/19/21 at 2115, STAT [facility] traMADoL 50 mg tablet 07-19 00:00: 00 Yes [id number] 50mg Take 1 tablet by mouth every 6 (six) hours as needed for Pain (scale 4-6). Indication s: acute pain [facility] Vital Signs Vital Name Observation Time Observation Value Comments S ource Systolic blood pressure 2023-11-26 23:08:00 153 mm[Hg] [facility] Diastolic blood pressure 2023-11-26 23:08:00 99 mm[Hg] [facility] Heart rate 2023-11-26 23:08:00 71 /min [facility] Body temperature 2023-11-26 23:08:00 37.28 Lashay [facility] Respiratory rate 2023-11-26 23:08:00 16 /min [facility] Body height 2023-11-26 23:08:00 190.5 cm [facility] Body weight 2023-11-26 23:08:00 81.647 kg [facility] BMI 2023-11-26 23:08:00 22.50 kg/m2 [facility] Oxygen saturation in Arterial blood by Pulse oximetry 2023-11-26 23:08:00 100 /min [facility] Systolic blood pressure 2021-11-15 23:30:00 134 mm[Hg] [facility] Diastolic blood pressure 2021-11-15 23:30:00 76 mm[Hg] [facility] Heart rate 2021-11-15 23:30:00 82 /min [facility] Body temperature 2021-11-15 23:30:00 37.17 Lashay [facility] Respiratory rate 2021-11-15 23:30:00 18 /min [facility] Body weight 2021-11-15 23:30:00 93.441 kg [facility] BMI 2021-11-15 23:30:00 25.75 kg/m2 [facility] Oxygen saturation in Arterial blood by Pulse oximetry 2021-11-15 23:30:00 99 /min [facility] Systolic blood pressure 2021-07-20 03:06:00 150 mm[Hg] [facility] Diastolic blood pressure 2021-07-20 03:06:00 93 mm[Hg] [facility] Heart rate 2021-07-20 03:06:00 69 /min [facility] Respiratory rate 2021-07-20 03:06:00 18 /min [facility] Oxygen saturation in Arterial blood by Pulse oximetry 2021-07-20 03:06:00 99 /min [place] [facility] Body temperature 2021-07-20 00:43:00 37.28 Lashay [facility] Body height 2021-07-20 00:43:00 190.5 cm [facility] Body weight 2021-07-20 00:43:00 93.441 kg [facility] BMI 2021-07-20 00:43:00 25.75 kg/m2 [facility] BP Systolic 2021-12-17 14:57:00 137 mm[Hg] BP [...] 2 VW RIGHT 2023-11-27 00:09:21 Mk Garcia [facility] POCT GLUCOSE(AGE >30DAYS) 2023-11-26 23:16:00 Mk Garcia [facility] POCT GLUCOSE (AUTOMATED) 2023-11-26 23:14:00 Mk Garcia [facility] ASSIGNMENT OF BENEFITS 2022-01-18 19:24:41 Docto r Unassigned, [place] [facility] REFERRAL- REQUEST/RESPONSE 2022-01-04 06:01:00 Doctor Unassigned, [place] [facility] REFERRAL- REQUEST/RESPONSE 2021-12-17 05:01:00 Doctor Unassigned, [place] [facility] XR KNEE 3 VW LEFT 2021-11-16 00:07:28 Tunde Pedro [facility] XR TIBIA FIBULA 2 VW LEFT 2021-11-16 00:07:28 Tunde Pedro [facility] CONSENT/REFUSAL FOR DIAGNOSIS AND TREATMENT 2021-11-15 23:27:22 Doctor Unassigned, [place] [facility] CT ABDOMEN PELVIS WO CONTRAST 2021-07-20 01:35:00 Kerwin Fields [facility] COMP. METABOLIC PANEL (09996) 2021-07-20 01:18:00 Kerwin Fields [facility] CBC WITH DIFF 2021-07-20 01:18:00 Kerwin Fields [facility] URINALYSIS 2021-07-20 01:18:00 Kerwin Fields [facility] NOTICE OF PRIVACY PRACTICES 2021-07-20 00:32:07 Doctor Unassigned, [place] [facility] Plan of Care Planned Activity Planned Date Details Comments Source Goal Plan of Care Note [code = 27137-8] Goal Plan of Care Note [code = 22531-9] Goal Plan of Care Note [code = 76380-5] Goal Plan of Care Note [code = 17054-8] Goal Plan of Care Note [code = 24858-0] Encounters Start Date/Time End Date/Time Encounter Type Admission Type Attending Clinicians Care Facility Care Department Encounter ID Source 2020-06-24 01:23:38 Inpatient UR Maurizio Wong [facility] [id number] [facility] 2024-02-23 00:00:00 2024-02-23 10:34:00 Letter (Out) Campaigns, Generic Provider Campaigns, Generic Provider [facility] (MAURIZIO) 1.2.840.114 350.1.13.10 4.2.7.2.686 [id number] [facility] 2023-12-07 00:00:00 2023-12-07 10:12:00 Letter (Out) Campaigns, Generic Provider Campaigns, Generic Provider [facility] (MAURIZIO) 1..840.114 350.1.13.10 4.2.7.2.686 [id number] [facility] 2023-11-26 18:10:00 2023-11-26 21:42:00 Emergency X MK GARCIA, MK [facility] ERT [id number] [facility] 2023-11-26 18:10:00 2023-11-26 21:42:00 Emergency Radha Mk G [facility] 1..840.114 350.1.13.10 4.2.7.2.686 [id number] [facility] 2022-03-27 00:00:00 2022-03-27 00:00:00 Refill Anna Paredes [facility] 1..840.114 350.1.13.10 4.2.7.2.686 [id number] [facility] 2022-02-18 09:00:00 2022-02-18 09:00:00 Outpatient R ANNA PAREDES [facility] [id number] [facility] 2022-01-18 14:15:00 2022-01-18 14:15:00 Office Visit Anna Paredes [facility] 1..840.114 350.1.13.10 4.2.7.2.686 [id number] [facility] 2022-01-18 14:15:00 2022-01-18 14:01:16 Outpatient R ANNA PAREDES [facility] RAD [id number] [facility] 2022-01-18 00:00:00 2022-01-18 00:00:00 Telephone Anna Paredes [facility] 1.840.114 350.1.13.10 4.2.7.2.686 [id number] [facility] 2022-01-18 00:00:00 2022-01-18 00:00:00 Orders Only Doctor Unassigned, [place] [facility] 1.2840.114 350.1.13.10 4.2.7.2.686 [id number] [facility] 2022-01-04 00:00:00 2022-01-04 00:00:00 Orders Only Doctor Unassigned, [place] [facility] 1.2840.114 350.1.13.10 4.2.7.2.686 [id number] [facility] 2021-12-17 14:52:52 2021-12-17 14:52:52 Outpatient [facility] [id number] Prakash [facility] 2021-12-17 00:00:00 2021-12-17 00:00:00 Outpatient Visit [id number] 2021-12-17 00:00:00 2021-12-17 00:00:00 Orders Only Doctor Unassigned, [place] [facility] 1.2840.114 350.1.13.10 4.2.7.2.686 [id number] [facility] 2021-12-16 00:00:00 2021-12-16 00:00:00 Telephone Anna Paredes [facility] 1.2840.114 350.1.13.10 4.2.7.2.686 [id number] [facility] 2021-12-02 00:00:00 2021-12-02 00:00:00 Telephone Anna Paredes [facility] 1.2.840.114 350.1.13.10 4.2.7.2.686 [id number] [facility] 2021-11-15 18:31:00 2021-11-15 20:23:00 Emergency X TUNDE PEDRO [facility] ERT [id number] [facility] 2021-11-15 18:31:00 2021-11-15 20:23:00 Emergency Tunde Pedro [facility] 1.840.114 350.1.13.10 4.2.7.2.686 [id number] [facility] 2021-11-04 00:00:00 2021-11-04 00:00:00 Outpatient Visit [id number] 2021-07-19 19:48:00 2021-07-19 22:08:00 Emergency X KERWIN FIELDS [facility] ERT [id number] [facility] 2021-07-19 19:48:00 2021-07-19 22:08:00 Emergency Edd Abrams Johnnie L [facility] 1..840.114 350.1.13.10 4.2.7.2.686 [id number] [facility] Results Test Description Test Time Test Comments [...] joint. No radiopaque foreign body is visualized. [facility] >30[facility]2023-11-26 23:16:00* Test Item Value Reference Range Interpretation Comme nts POCT Glu (age>30days) (test code = 3342) 79 mg/dL 70-110 Lab Interpretation (test cod e = 03743-2) Normal [facility]57460[facility]2021-07-20 01:42:54* Test Item Value Reference Range Interpretation Comme nts NA (test code = 2245396291) 138 mmol/L 135-145 K (test code = 5054243570) 4.1 mmol/L 3.5-5.0 CL (test code = 6521797872) 104 mmol/L 98-108 CO2 TOTAL (test code = 8923528756) 22 mmol/L 23-31 L AGAP (test code = 1337457860) 2-16 BUN (test code = 6155938616) 16 mg/dL 7-23 GLUCOSE (test code = 9541257974) 115 mg/dL 70-110 H CREATININE (test code = 4707021303) 0.84 mg/dL 0.60-1.25 TOTAL BILI (test code = 1891471656) 0.6 mg/dL 0.1-1.1 CALCIUM (test code = 0566206144) 8.9 mg/dL 8.6-10.6 T PROTEIN (test code = 8248351074) 6.8 g/dL 6.3-8.2 ALBUMIN (test code = 2113677845) 4.4 g/dL 3.5-5.0 ALK PHOS (test code = 7192613135) 74 U/L 34-122 ALTv (test code = 1742-6) 32 U/L 5-50 AST(SGOT) (test code = 5650215854) 32 U/L 13-40 eGFR (test code = 7823054448) mL/min/1.73m2 ANGEL (test code = ANGEL) Association [...] imaging tests). Lab Interpretation (test code = 61812-4) Abnormal [facility] WITH [id number] 01:33:12* Test Item Value Reference Range Interpretation Comme nts WBC (test code = 6690-2) See_Comment [[employer]] The system which generated this result transmitted reference range: 4.20 - 10.70 10*3/?L. The reference range was not used to interpret this result as normal/abnormal. RBC (test code = 789-8) See_Comment [[employer]] The system which generated this result transmitted [...] g/dL 31.2-35.0 H RDW-SD (test code = 34202-2) 35.6 fL 38.5-51.6 L RDW-CV (test code = 788-0) 11.7 % 12.1-15.4 L PLT (test code = 777-3) See_Comment [Automated messa ge] The system which generated this result transmitted reference range: 150 - 328 10*3/?L. The reference range was not used to interpret this result as normal/abnormal. MPV (test code = 56139-2) 9.2 fL 9.8-13.0 L NRBC/100 WBC (test code = 9416272504) See_Comment [Automated [employer] ssage] The system which generated this result transmitted reference range: 0.0 - 10.0 /100 WBCs. The reference range was not used to interpret this result as normal/abnormal. NRBC x10^3 (test code = 5715974805) <0.01 See_Comment [Automated messa ge] The system which generated this result transmitted reference range: 10*3/?L. The reference range was not used to interpret this result as normal/abnormal. GRAN MAT (NEUT) % (test code = 770-8) 65.8 % IMM GRAN % (test code = 4355094040) 0.30 % LYMPH % (test code = 736-9) 22.4 % MONO % (test code = 5905-5) 7.1 % EOS % (test code = 713-8) 4.0 % BASO % (test code = 706-2) 0.4 % GRAN MAT x10^3(ANC) (test code = 1927430455) 5.91 10*3/uL 1.99-6.95 IMM GRAN x10^3 (test code = 7761120194) 0.03 10*3/uL 0.00-0.06 LYMPH x10^3 (test code = 731-0) 2.02 10*3/uL 1.09-3.23 MONO x10^3 (test code = 742-7) 0.64 10*3/uL 0.36-1.02 EOS x10^3 (test code = 711-2) 0.36 10*3/uL 0.06-0.53 BASO x10^3 (test code = 704-7) 0.04 10*3/uL 0.01-0.09 Lab Interpretation (test code = 34383-7) Abnormal [facility]HA1C)2020-06-24 09:24:00* Test Item Value Reference [...] noted. Refused DC VS. Alina Santana RN [facility] 2023-11-26 18:07:20 Patient states: "I've got something on my toe. I've been trying to take care of it myself but it's making my feet hurt and I can hardly wear my shoes" Deneen Mancilla RN [facility]
[2024-11-12] MEDS ORDERED: HYDROCODONE/APAP 5/325 MG TAB ONE (13:39)
--- NOTE | 2024-11-12 14:15 | RAD REPORT ---
EXAM: CT brain without contrast HISTORY: Head injury status post fall COMPARISON: 2021 TECHNIQUE: Multiple contiguous axial images were obtained and a CT of the brain without contrast.. Sagittal and coronal reconstruction performed. Automated exposure control, adjustment of the mA and/or kV according to patient size, and/or iterative reconstruction. Unless otherwise specified, incidental f indings do not require dedicated imaging follow-up FINDINGS: Right frontal scalp swelling. Postsurgical changes right face. An intracranial bleed is not seen Ventricles are normal caliber No extra-axial fluid collection noted No significant hypodensity within the brain No fluid within the visualized sinuses or mastoids noted. IMPRESSION: No acute intracranial abnormality noted. If the patient continues to have symptoms to suggest an acute intracranial abnormality then MRI of th e brain would be recommended.
--- NOTE | 2024-11-12 14:19 | RAD REPORT ---
Exam:Knee Left 3 View HISTORY: Left knee pain FINDINGS: No fracture or dislocation seen Mild narrowing of the medial compartment. Mild osteoarthritis patellofemoral compartment
--- NOTE | 2024-11-12 14:20 | ER ---
Nurse's Notes [facility] Name: Jose J Sanchez Age: 68 yrs Sex: Male : 1955 Arrival Date: 11/12/2024 Time: 13:25 Bed 18 Private MD: Diagnosis: Unspecified injury of head, initial encounter Presentation: 11/12 13:28 Chief complaint: EMS states: toned out for fall. Patient reports his knee gave out on me1 him and he fell hitting his right forehead on concrete. Hematoma noted to R forehead with abrasion to R temporal area. Also reports pain to L knee. pain level 9/10. Denies n/v. No LOC. No blood thinners. Coronavirus screen: Vaccine status: Patient reports being unvaccinated. Ebola Screen: No symptoms or risks identified at this time. Initial Sepsis Screen: Does the patient meet any 2 criteria? No. Patient's initial sepsis screen is negative. Does the patient have a suspected source of infection? No. Patient's initial sepsis screen is negative. Risk Assessment: Do you want to hurt yourself or someone else? Patient reports no desire to harm self or others. Onset of symptoms was November 12, 2024 at 12:50. 13:28 Method Of Arrival: EMS: [facility] 13:28 Acuity: DELICIA 3 me1 Triage Assessment: 13:31 General: Appears uncomfortable, Behavior is calm, cooperative, appropriate for age. me1 Pain: Complains of pain in forehead, right episcopalian and left knee Pain does not radiate. Pain currently is 9 out of 10 on a pain scale. Quality of pain is described as sharp, throbbing, Pain began suddenly, Is continuous. EENT: No signs and/or symptoms were reported regarding the EENT system. Neuro: Level of Consciousness is awake, alert, obeys commands, Oriented to person, place, time, situation, Appropriate for age. Cardiovascular: Patient's skin is warm and dry. Respiratory: Airway is patent Respiratory effort is even, unlabored, Respiratory pattern is regular, symmetrical. GI: No signs and/or symptoms were reported involving the gastrointestinal system. : No signs and/or symptoms were reported regarding the genitourinary system. Derm: Skin is healthy with good turgor, Skin is pink, warm \T\ dry. Wound noted right episcopalian Wound is abrasion Bruising that is bright red, on forehead. Musculoskeletal: Swelling present in forehead Reports pain in left knee. Injury Description: knee gave out and patient fell hitting R forehead on concrete and landing on left knee. Historical: - Allergies: 13:31 No Known Allergies; me1 - PMHx: 13:31 HTN; Hypercholesterolemia; me1 - PSHx: 13:31 back surgery; facial surgery; five knee surgery; me1 - Immunization history:: Adult Immunizations up to date. - Infectious Disease History:: Denies. - Social history:: Smoking status: Patient denies any tobacco usage or history of. Screenin:33 [facility] ED Fall Risk Assessment (Adult) History of falling in the last 3 months, me1 including since admission Yes- single mechanical fall (1 pt) Confusion or Disorientation No (0 pts) Intoxicated or Sedated No (0 pts) Impaired Gait Yes (1 pt) Mobility Assist Device Used No (0 pt) Altered Elimination No (0 pt) Score/Fall Risk Level 0 - 2 = Low Risk Maintained a safe environment, Provided non-skid footwear, Hourly rounding (assess needs \T\ fall precautionary measures) done. Abuse screen: Denies threats or abuse. Nutritional screening: No deficits noted. Tuberculosis screening: No symptoms or risk factors identified. Assessment: 13:33 General: See triage assessment. me1 Vital Signs: 13:28 BP 161 / 99; Pulse 83; Resp 17; Temp 98.6; Pulse Ox 97% ; Weight 86.18 kg; Height 6 ft. me1 3 in. ; Pain 9/10; 14:00 BP 144 / 86; Pulse 77; Resp 15; Pulse Ox 99% ; me1 14:40 Pain 7/10; me1 14:52 BP 154 / 82; Pulse 72; Resp 16; Temp 98.2; Pulse Ox 98% ; me1 13:28 Body Mass Index 23.75 (86.18 kg, 190.5 cm) me1 13:28 Pain Scale: Adult me1 14:40 Pain Scale: Adult me1 ED Course: 13:28 Patient arrived in ED. me1 13:28 [facility] Baker [facility]. sb4 13:28 Manda Page MD is Attending Physician. sb4 13:31 Triage completed. me1 13:31 Arm band placed on Patient placed in an exam room. me1 13:33 Patient has correct armband on for positive identification. Bed in low position. Call me1 light in reach. Side rails up X2. Provided Education on: POC. Verbalized understanding.. Client placed on continuous cardiac and pulse oximetry monitoring. NIBP monitoring applied. Pulse ox on. NIBP on. 13:33 No provider procedures requiring assistance completed. me1 13:41 Jessica Baldwin, RN is Primary Nurse. me1 13:46 Head Brain Wo Cont CT In Process Unspecified. EDMS 13:50 Knee Left 3 View XRAY In Process Unspecified. EDMS 14:52 Patient did not have IV access during this emergency room visit. me1 Administered Medications: 13:51 Drug: HYDROcodone-acetaminophen PO 5 mg-325 mg 1 tabs PO once Route: PO; me1 14:40 Follow up: Pain 7/10 Adult; Response: No adverse reaction; Pain is decreased me1 14:41 Not Given (Physician Discretion): [id number] mg IVP once sb4 14:51 Drug: Ketorolac IM 30 mg IM once Route: IM; Site: right deltoid; me1 14:51 Follow up: Response: No adverse reaction me1 Medication: 13:33 VIS not applicable for this client. me1 Outcome: 14:20 Discharge ordered by . sb4 14:52 Discharged to home via wheelchair, with friend, me1 14:52 Condition: stable 14:52 Discharge instructions given to patient, Instructed on discharge instructions, follow up and referral plans. Demonstrated understanding of instructions, follow-up care, 14:52 Patient left the ED. me1 Signatures: Dispatcher [employer] Argelia Johnson, PA-C PA-C sb4 Jessica Baldwin, RN RN me1
--- NOTE | 2024-11-12 14:20 | EDPHYS ---
Physician Documentation [facility] Name: Jose J Sanchez Age: 68 yrs Sex: Male : 1955 Arrival Date: 11/12/2024 Time: 13:25 Bed 18 Private MD: ED Physician Manda Page HPI: 11/12 15:53 This 68 yrs old Male presents to ER via EMS with complaints of Fall Injury, Head Injury sb4 Without LOC-Adult. 15:53 Patient states that he was working this morning when his left knee gave out he fell to sb4 the ground and struck the right side of his head. Denies any loss of consciousness, is not on any blood thinners, is just complaining of a headache. States tetanus shot was updated about 2 years ago. Historical: - Allergies: 13:31 No Known Allergies; me1 - PMHx: 13:31 HTN; Hypercholesterolemia; me1 - PSHx: 13:31 back surgery; facial surgery; five knee surgery; me1 - Immunization history:: Adult Immunizations up to date. - Infectious Disease History:: Denies. - Social history:: Smoking status: Patient denies any tobacco usage or history of. ROS: 15:54 Constitutional: Negative for fever, chills, and weight loss, sb4 15:54 Neuro: Positive for headache, 15:54 All other systems are negative, Exam: 15:54 Cardiovascular: Regular rate and rhythm with a normal S1 and S2. Respiratory: No sb4 increased work of breathing, no retractions or nasal flaring. Abdomen/GI: Soft, non-tender, no distension. Skin: Warm, dry with normal turgor. Normal color with no rashes, no lesions, and no evidence of cellulitis. 15:54 Constitutional: The patient appears in no acute distress, alert, awake, 15:54 Head/face: Noted is contusion, hematoma, of the right episcopal and right side of forehead, swelling, Vital Signs: 13:28 BP 161 / 99; Pulse 83; Resp 17; Temp 98.6; Pulse Ox 97% ; Weight 86.18 kg; Height 6 ft. me1 3 in. ; Pain 9/10; 14:00 BP 144 / 86; Pulse 77; Resp 15; Pulse Ox 99% ; me1 14:40 Pain 7/10; me1 14:52 BP 154 / 82; Pulse 72; Resp 16; Temp 98.2; Pulse Ox 98% ; me1 13:28 Body Mass Index 23.75 (86.18 kg, 190.5 cm) me1 13:28 Pain Scale: Adult me1 14:40 Pain Scale: Adult me1 MDM: 13:28 Medical Screening Exam initiated sb4 15:54 Differential diagnosis: abrasion, closed head injury, contusion, fracture, sprain, sb4 strain. Data reviewed: vital signs, nurses notes, EMS record, radiologic studies, CT scan, plain films, and as a result, I will discharge patient. Counseling: I had a detailed discussion with the patient and/or guardian regarding the historical points, exam findings, and any diagnostic results supporting the discharge/admit diagnosis, the presence of at least one elevated blood pressure reading (>120/80) during this emergency department visit, radiology results, the need for outpatient follow up, for definitive care, to return to the emergency department if symptoms worsen or persist or if there are any questions or concerns that arise at home. 11/12 13:32 Order name: Head Brain Wo Cont CT; Complete Time: 14:17 sb4 11/12 13:32 Order name: Knee Left 3 View XRAY; Complete Time: 14:20 sb4 11/12 14:20 Order name: Wound Care; Complete Time: 14:40 sb4 Administered Medications: 13:51 Drug: HYDROcodone-acetaminophen PO 5 mg-325 mg 1 tabs PO once Route: PO; me1 14:40 Follow up: Pain 7/10 Adult; Response: No adverse reaction; Pain is decreased me1 14:41 Not Given (Physician Discretion): [id number] mg IVP once sb4 14:51 Drug: Ketorolac IM 30 mg IM once Route: IM; Site: right deltoid; me1 14:51 Follow up: Response: No adverse reaction me1 Disposition Summary: 11/12/24 14:20 Discharge Ordered Notes: Location: Home sb4 Problem: new sb4 Symptoms: have improved sb4 Condition: Stable sb4 Diagnosis - Unspecified injury of head, initial encounter sb4 Followup: sb4 - With: Emergency Department - When: As needed - Reason: Trouble breathing, Worsening of condition Discharge Instructions: - Discharge Summary Sheet sb4 - Head Injury, Pediatric, [id number] sb4 - Facial or Scalp Contusion, [id number] sb4 Forms: - Patient Portal Instructions sb4 - Leadership Thank You Letter sb4 Signatures: Dispatcher [employer] Argelia Johnson PA-C PA-C sbJessica Keating, RN RN me1
[2024-11-12] MEDS ORDERED: KETOROLAC 30 MG/ML INJ ONE (14:33)
[2024-11-12 15:50] VITALS: BP 154/82; TEMP 98.2; O2SAT 98
== END 2024-11-12 14:52 | disposition home or self-care (01) ==
LOC: ER 13:25
DX: S00.83XA Contusion of other part of head, initial encounter (principal); W18.30XA Fall on same level, unspecified, initial encounter; Y99.0 Civilian activity done for income or pay
CPT/HCPCS: 70450; 96372; 99284; J1885

== ENCOUNTER 2024-12-11 19:45 | Emergency (ER) | payer OTHER ==
[2024-12-11] MEDS ORDERED: ACETAMINOPHEN 500 MG TAB ONE (21:23)
[2024-12-11] MEDS ORDERED: KETOROLAC 10 MG TAB ONE (21:23)
--- NOTE | 2024-12-11 21:46 | RAD REPORT ---
EXAMINATION: XR RIGHT FOOT CLINICAL INDICATION: Male, 69 years old. Right foot pain TECHNIQUE: Multiple views of the right foot were obtained. COMPARISON: No prior exam. FINDINGS: Questionable lucency seen in the distal aspect of the distal phalanx of the second toe coul d be a tuft fracture. Suggest correlation with clinical point tenderness in this region. Elsewhere no fracture or dislocation seen. Moderate calcaneal spurs.
--- NOTE | 2024-12-11 23:05 | ER ---
Nurse's Notes [facility] Name: Jose J Sanchez Age: 69 yrs Sex: Male : 1955 Arrival Date: 12/11/2024 Time: 19:45 Bed 10 Private MD: Diagnosis: Hide acute right foot contusion, acute right foot crush injury Presentation: 12/11 20:42 Chief complaint: Patient states: dropped a dresser on right foot, pain to toes. nh2 Coronavirus screen: Client denies travel out of the [place] in the last 14 days. At this time, the client does not indicate any symptoms associated with coronavirus-19. Ebola Screen: Patient negative for fever greater than or equal to 101.5 degrees Fahrenheit, and additional compatible Ebola Virus Disease symptoms Patient denies exposure to infectious person. Patient denies travel to an Ebola-affected area in the 21 days before illness onset. No symptoms or risks identified at this time. Initial Sepsis Screen: Does the patient meet any 2 criteria? No. Patient's initial sepsis screen is negative. Does the patient have a suspected source of infection? No. Patient's initial sepsis screen is negative. Risk Assessment: Do you want to hurt yourself or someone else? Patient reports no desire to harm self or others. Onset of symptoms was December 11, 2024. 20:42 Method Of Arrival: Wheelchair [facility] 20:42 Acuity: DELICIA 3 nh2 Triage Assessment: 20:26 General: Appears in no apparent distress. uncomfortable, Behavior is calm, cooperative, vc1 appropriate for age. Pain: Complains of pain in right foot Pain does not radiate. Pain currently is 10 out of 10 on a pain scale. Quality of pain is described as sharp, Pain began suddenly, Aggravated by weight bearing. EENT: No deficits noted. No signs and/or symptoms were reported regarding the EENT system. Neuro: Level of Consciousness is awake, alert, obeys commands, Oriented to person, place, time, situation, Appropriate for age. Cardiovascular: Capillary refill < 3 seconds. Respiratory: Airway is patent Respiratory effort is even, unlabored, Respiratory pattern is regular, symmetrical. GI: No deficits noted. No signs and/or symptoms were reported involving the gastrointestinal system. : No deficits noted. No signs and/or symptoms were reported regarding the genitourinary system. Derm: Skin is intact. Musculoskeletal: Swelling present in right foot Reports pain in right foot. Historical: - Allergies: 20:44 No Known Allergies; nh2 - PMHx: 20:44 HTN; Hypercholesterolemia; nh2 - PSHx: 20:44 back surgery; facial surgery; five knee surgery; nh2 - Immunization history:: Client reports receiving the 2nd dose of the Covid vaccine, Flu vaccine is up to date. - Infectious Disease History:: Denies. - Social history:: Smoking status: Patient denies any tobacco usage or history of. - Family history:: not pertinent. Screenin:19 [facility] ED Fall Risk Assessment (Adult) History of falling in the last 3 months, jb4 including since admission No falls in past 3 months (0 pts) Confusion or Disorientation Intoxicated or Sedated No (0 pts) Impaired Gait No (0 pts) Mobility Assist Device Used No (0 pt) Altered Elimination No (0 pt) Score/Fall Risk Level 0 - 2 = Low Risk Oriented to surroundings, Maintained a safe environment. Abuse screen: Denies threats or abuse. Nutritional screening: No deficits noted. Tuberculosis screening: No symptoms or risk factors identified. Assessment: 22:34 Reassessment: Patient appears in no apparent distress at this time. Patient and/or jb4 family updated on plan of care and expected duration. Pain level reassessed. Patient is alert, oriented x 3, equal unlabored respirations, skin warm/dry/pink. 23:19 Reassessment: Patient appears in no apparent distress at this time. Patient and/or jb4 family updated on plan of care and expected duration. Pain level reassessed. Patient is alert, oriented x 3, equal unlabored respirations, skin warm/dry/pink. Vital Signs: 20:42 BP 142 / 91; Pulse 80; Resp 16; Temp 96.8; Pulse Ox 99% ; Weight 86.18 kg; Height 6 ft. nh2 3 in. ; Pain 9/10; 20:42 Body Mass Index 23.75 (86.18 kg, 190.5 cm) nh2 20:42 Pain Scale: Adult nh2 Nidhi Coma Score: 12/12 21:39 Eye Response: spontaneous(4). Verbal Response: oriented(5). Motor Response: obeys sp4 commands(6). Total: 15. ED Course: 12/11 19:48 Patient arrived in ED. im 19:52 Placido Chowdhury MD is Attending Physician. sp4 20:44 Triage completed. nh2 20:44 Arm band placed on right wrist. nh2 21:17 Foot Right 3 View XRAY In Process Unspecified. EDMS 22:33 Slim Bhakta, RN is Primary Nurse. jb4 23:19 plan of care. Provided Education on: discharge instructions.. jb4 23:19 No provider procedures requiring assistance completed. Patient did not have IV access jb4 during this emergency room visit. Administered Medications: 21:29 Drug: Ketorolac PO 10 mg PO once Route: PO; jb4 21:29 Drug: Acetaminophen PO 1000 mg PO once Route: PO; jb4 Medication: 23:19 VIS not applicable for this client. jb4 Outcome: 23:04 Discharge ordered by . sp4 23:19 Discharged to home ambulatory, jb4 23:19 Condition: stable 23:19 Discharge instructions given to patient, Instructed on discharge instructions, follow up and referral plans. medication usage, Demonstrated understanding of instructions, follow-up care, medications, Prescriptions given X 1, 23:21 Patient left the ED. jb4 Signatures: Dispatcher [employer] EDMS Slim Bhakta, RN RN jb4 Bridgette Vital RN RN vc1 Placido Chowdhury MD MD sp4 Grisel Bergeron Jr, Noel, RN RN nh2
--- NOTE | 2024-12-11 23:05 | EDPHYS ---
Physician Documentation [facility] Name: Jose J Sanchez Age: 69 yrs Sex: Male : 1955 Arrival Date: 12/11/2024 Time: 19:45 Bed 10 Private MD: ED Physician Placido Chowdhury HPI: 12/11 19:52 This 69 yrs old Male presents to ER via Unassigned with complaints of Crush sp4 Injury To Foot - right. 12/12 21:39 Patient is a very pleasant man who presents with right foot pain at the right of the sp4 right small toe after dropping a dresser onto that foot. Historical: - Allergies: 12/11 20:44 No Known Allergies; nh2 - PMHx: 20:44 HTN; Hypercholesterolemia; nh2 - PSHx: 20:44 back surgery; facial surgery; five knee surgery; nh2 - Immunization history:: Client reports receiving the 2nd dose of the Covid vaccine, Flu vaccine is up to date. - Infectious Disease History:: Denies. - Social history:: Smoking status: Patient denies any tobacco usage or history of. - Family history:: not pertinent. ROS: 12/12 21:39 MS/extremity: Positive for of the Positive right foot pain at the right small toe, sp4 Constitutional: Negative for fever, chills, and weight loss, positive right foot crush injury All other systems are negative, Exam: 21:39 Constitutional: This is a well developed, well nourished patient who is awake, alert, sp4 and in no acute distress. Head/Face: Normocephalic, atraumatic. Eyes: Pupils equal round and reactive to light, extra-ocular motions intact. Lids and lashes normal. Conjunctiva and sclera are not injected. Cornea within normal limits. Periorbital areas with no swelling, redness, or edema. ENT: Nares patent. No nasal discharge, no septal abnormalities noted. Tympanic membranes are normal and external auditory canals are clear. Oropharynx with no redness, swelling, or masses, exudates, or evidence of obstruction, uvula midline. Mucous membranes moist. Neck: Trachea midline, no thyromegaly or masses palpated, and no cervical lymphadenopathy. Supple, full range of motion without nuchal rigidity, or vertebral point tenderness. Chest/axilla: Normal chest wall appearance and motion. Nontender with no deformity. No lesions are appreciated. Cardiovascular: Regular rate and rhythm with a normal S1 and S2. No gallops, murmurs, or rubs. No pulse deficits. Respiratory: Lungs have equal breath sounds bilaterally, clear to auscultation and percussion. No rales, rhonchi or wheezes noted. No increased work of breathing, no retractions or nasal flaring. Abdomen/GI: Soft, with normal bowel sounds. No distension or tympany. No guarding or rebound. No evidence of tenderness throughout. Back: No spinal tenderness. No costovertebral tenderness. Skin: Warm, dry with normal turgor. Normal color with no rashes, no lesions, and no evidence of cellulitis. MS/ Extremity: Pulses equal, no cyanosis. Neurovascular intact. Full, normal range of motion. Neuro: Awake and alert, GCS 15, oriented to person, place, time, and situation. Cranial nerves II-XII grossly intact. Motor strength 5/5 in all extremities. Sensory grossly intact. Psych: Awake, alert, with orientation to person, place and time. Behavior, mood, and affect are within normal limits Vital Signs: 12/11 20:42 BP 142 / 91; Pulse 80; Resp 16; Temp 96.8; Pulse Ox 99% ; Weight 86.18 kg; Height 6 ft. nh2 3 in. ; Pain 9/10; 20:42 Body Mass Index 23.75 (86.18 kg, 190.5 cm) nh2 20:42 Pain Scale: Adult nh2 Nidhi Coma Score: 12/12 21:39 Eye Response: spontaneous(4). Verbal Response: oriented(5). Motor Response: obeys sp4 commands(6). Total: 15. Procedures: 12/11 23:01 Splinting: Splint applied to right Achilles, right heel and dorsum of right foot using sp4 Ortho 3D boot, applied by nurse. Examined by me, post splint application: neurovascular intact, 2+ distal pulses palpable, brisk capillary refill noted, Patient tolerated well, Advised Ortho boot for the next 2 weeks.. MDM: 19:55 Medical Screening Exam initiated sp4 23:01 Differential diagnosis: fracture, sprain, foreign body, arthritis, gout, cellulitis. sp4 Data reviewed: vital signs, nurses notes, radiologic studies, plain films. 12/12 21:40 Consideration of Admission/Observation Escalation of care including sp4 admission/observation considered. ED course: X-ray negative for acute fracture of the right small toe, positive for possible tuft fracture right distal second toe . Will recommend application of the Ortho boot. Will recommend Ortho boot for the next 2 weeks. 12/11 20:38 Order name: Foot Right 3 View XRAY; Complete Time: 22:46 sp4 Administered Medications: 12/11 21:29 Drug: Ketorolac PO 10 mg PO once Route: PO; jb4 21:29 Drug: Acetaminophen PO 1000 mg PO once Route: PO; jb4 Disposition: 12/12 21:40 Chart complete. sp4 Disposition Summary: 12/11/24 23:04 Discharge Ordered Notes: Location: Home sp4 Problem: new sp4 Symptoms: have improved sp4 Condition: Stable sp4 Diagnosis - Hide acute right foot contusion, acute right foot crush injury sp4 Followup: sp4 - With: Private Physician - When: 7 - 10 days - Reason: Recheck today's complaints Discharge Instructions: - Discharge Summary Sheet sp4 - Foot Contusion, [id number] sp4 Forms: - Work release form sp4 - Patient Portal Instructions sp4 Prescriptions: - meloxicam 15 mg Oral tablet - take 1 tablet ORAL route daily PRN pain; 30 tablet; Refills: 0, Product sp4 Selection Permitted Signatures: Dispatcher [employer] EDAlejandra Sylvester, PRATIMA YING-Slim Durham RN RN jb4 Placido Chowdhury MD MD sp4 Js Gray Jr, RN RN nh2
[2024-12-12 05:22] VITALS: BP 142/91; TEMP 96.8; O2SAT 99
== END 2024-12-11 23:21 | disposition home or self-care (01) ==
LOC: ER 19:45
DX: S90.31XA Contusion of right foot, initial encounter (principal)
CPT/HCPCS: 99283